=== PATIENT | male | born 1950 | race Caucasian/White ===

== ENCOUNTER 2018-05-27 09:08 | Inpatient (IN) | payer BC, OTHER ==
[2018-05-27] MEDS ORDERED: LORazepam 2 MG/ML SDV VIAL ONE ×3 (09:41→11:59)
[2018-05-27] MEDS ORDERED: ALBUTEROL SO4 2.5/IPRATROPIUM 0.5 INH SOL 3 ML VIAL.NEB. NEB ONE ×4 (10:00→10:53)
--- NOTE | 2018-05-27 10:00 | PDOC ---
Attending Attestation - Resident Resident Name: Senthil Arnett - HPI HPI: 05/27/18 11:27 Pt presents to the ED after found with altered mental status. Patient has a known history of substance abuse and was recently prescribed flexaril. Family believes that patient overdosed on the flexiril---state that they think he took 10 pills last night. Of note, patient has an extensive medical history including COPD, CABG in 2011, a fib on dig and coumadin. Patient was last seen normal during the day time yesterday. - Physicial Exam PE: 05/27/18 11:33 Agree with resident exam. Patient is altered, diaphoretic and flushed. Is moving all extremities with good strength but has no verbal responses and is not following commands. Abdomen is non distended and apparently non tender. + ecchymosis to the L knee but has full ROM. 05/27/18 11:36 - Critical Care Time Total Critical Care Time: 65 Critical Care Statement: The care of this patient involved high complexity decision making to prevent further life threatening deterioration of the patient 's condition and/or to evaluate & treat vital organ system(s) failure or risk of failure. - Medical Decision Making 05/27/18 11:37 Pt presents to ED complaining of altered mental status. Questionable flexiril OD. 1. altered mental status: may be secondary to medication OD. Patient has toxidrome consistent with flexiril OD. FS normoglycemic. Will check CT head and labs. 2. sepsis: patient is febrile with lactate of 3.8, elevated WBC count and infiltrate on CXR. Will give IV hydration and start broad spectrum antibiotics. Blood and and urine CX sent 3. Possible flexiril OD: no signs of Na channel blockade on ED. PAtient has urinary retention and flushing, consistent with TCA OD. Will treat agitation with benzodiazepines. will consult poisions and admit to ICU for continued management. 4. Wheezing and mild hypoxia: improved with nebs. Will also treat with solumedrol.
--- NOTE | 2018-05-27 10:01 | PDOC ---
History of Present Illness - General Stated Complaint: over dose Time Seen by Provider: 05/27/18 09:32 - History of Present Illness Initial Comments: 05/27/18 10:19 The patient is a 67 year old male with a history of afib, COPD, CHF, HTN, Prescription substance abuse who presents for evaluation of altered mental status. The patient is accompanied by his family who assist in providing the history. They note that the patient has a long history of prescription drug abuse and was recently prescribed metaxalone 1 day ago in addition to his Tramadol. They note that the patient took 10 tabs of flexeril throughout the night and today became acutely confused and altered prompting his presentation to the ED for further evaluation. ROS is unobtainable due to the patient's mental status. Past History - Past Medical History Allergies/Adverse Reactions: Allergies Allergy/AdvReac Type Severity Reaction Status Date / Time No Known Allergies Allergy Verified 05/27/18 09:32 Home Medications: Ambulatory Orders Aspirin [Ecotrin] 81 mg PO DAILY 05/27/18 Carvedilol [Coreg -] 12.5 mg PO BID 05/27/18 Digoxin [Lanoxin -] 0.125 mg PO DAILY 05/27/18 Duloxetine HCl [Cymbalta] 20 mg PO DAILY 05/27/18 Fenofibrate Nanocrystallized [Tricor] 48 mg PO HS 05/27/18 Finasteride 5 mg PO HS 05/27/18 Furosemide [Lasix] 40 mg PO DAILY 05/27/18 Icosapent Ethyl [Vascepa] 2 gm PO BID 05/27/18 Metaxalone [Metaxall] 800 mg PO TID 05/27/18 Potassium Chloride [Klor-Con M20] 20 meq PO HS 05/27/18 Rosuvastatin Calcium [Crestor] 20 mg PO HS 05/27/18 Tamsulosin HCl [Flomax] 0.4 mg PO BID 05/27/18 Warfarin Sodium [Coumadin] 5 mg PO HS 05/27/18 Cardiac Disorders: Yes (afib) COPD: Yes CHF: Yes HTN: Yes - Surgical History Cardiac Surgery: Yes (bipass mitral valve maze procedure) - Suicide/Smoking/Psychosocial Hx Smoking History: Current every day smoker Have you smoked in the past 12 months: Yes Number of Cigarettes Smoked Daily: 20 Information on smoking cessation initiated: No Hx Alcohol Use: No (sober 9 yrs) Drug/Substance Use Hx: Yes Substance Use Type: Alcohol, Prescribed Review of Systems - Review of Systems Able to Perform ROS?: No (Altered Mental Status) *Physical Exam - Vital Signs Last Vital Signs Temp Pulse Resp BP Pulse Ox 100.1 F H 54 L 20 106/77 94 L 05/27/18 09:19 05/27/18 09:19 05/27/18 09:19 05/27/18 09:19 05/27/18 09:19 - Physical Exam Comments: 05/27/18 10:30 General Appearance: Nourished. Altered. No Apparent Distress HEENT: EOMI, EMILY. No Pharyngeal Erythema, Tonsillar Exudate, Tonsillar Erythema Neck: No Cervical Lymphadenopathy Respiratory/Chest: Diffuse inspiratory and expiratory wheezing noted on exam. No Crackles, Rales, Rhonchi, Cardiovascular: Regular Rhythm, Regular Rate. No Murmur, Gallops, Rubs Gastrointestinal/Abdominal: Normal Bowel Sounds, Soft. No Guarding, Rebound, Tenderness Musculoskeletal: No CVA Tenderness Extremity: Normal Capillary Refill Integumentary: Normal Color, Dry, Warm Neurologic: Not Oriented, Alert, Altered. Moving all four extremities, Withdrawals to pain, Motor Strength 5/5. Heart Score/ECG Review #1 ECG reviewed & interpreted by me at: 10:32 General ECG Interpretation: No acute ischemic changes 05/27/18 10:32 Atrial Fibrillation with rapid ventricular response Left Bundle Branch Block HR 133 QTc 506 QRS 152 ED Treatment Course - LABORATORY CBC & Chemistry Diagram: 05/27/18 15:50 05/27/18 15:50 - RADIOLOGY Radiology Studies Ordered: Category Date Time Status HEAD CT WITHOUT CONTRAST [CT] Stat CT Scan 05/27/18 09:33 Ordered CHEST X-RAY PORTABLE* [RAD] Stat Radiology 05/27/18 09:58 Ordered Medical Decision Making - Critical Care Time Total Critical Care Time (minutes): 65 Critical Care Statement: The care of this patient involved high complexity decision making to prevent further life threatening deterioration of the patient 's condition and/or to evaluate & treat vital organ system(s) failure or risk of failure. - Medical Decision Making 05/27/18 10:33 The patient is a 67 year old male with a history of afib, COPD, CHF, HTN, Prescription substance abuse who presents for evaluation of altered mental status. Differential includes but is not limited to: Sepsis, Toxicological, Intracranial process, Infectious, Metabolic Derangement. Given the patient's history and physical exam, we will obtain a cbc, cmp, troponin, cpk, dig level, coags, ua, urine tox, acetominophen level, salicylate, alcohol level, blood cultures, urine cultures, head ct, ekg, chest plain film to evaluate further. We will continue to closely monitor and reassess while here in the ED. *DC/Admit/Observation/Transfer Diagnosis at time of Disposition: Altered mental status Qualifiers: Altered mental status type: unspecified Qualified Code(s): R41.82 - Altered mental status, unspecified - Discharge Dispostion Condition at time of disposition: Stable - Referrals - Patient Instructions - Post Discharge Activity
[2018-05-27 10:15] LABS: BASO % 0.8 % (0-2.0); HEMATOCRIT 34.1 % (35.4-49); HEMOGLOBIN 10.7 GM/dL (11.7-16.9); LYMPH % 12.4 % (8-40); MCH 27.3 pg (25.7-33.7); MCHC 31.4 g/dl (32.0-35.9); MEAN CELL VOLUME 86.9 fl (80-96); MEAN PLT VOLUME 8.4 fl (7.5-11.1); MONO % 10.3 % (3.8-10.2); NEUT % 75.5 % (42.8-82.8); PLATELET COUNT 344 K/MM3 (134-434); RBC 3.93 M/mm3 (4.00-5.60); RDW 20.5 % (11.9-15.9); WHITE BLOOD COUNT 13.7 K/mm3 (4.0-10.0)
[2018-05-27 10:28] LABS: INR 1.96 (0.83-1.09); PROTHROMBIN TIME (PATIENT) 23.3 SEC (9.7-13.0)
[2018-05-27 10:31] LABS: ACTIVATED PTT 26.6 SECONDS (25.2-36.5)
[2018-05-27 10:33] LABS: COCAINE, UR NEGATIVE ng/ml (CUTOFF=300); METHADONE, UR NEGATIVE ng/ml (CUTOFF=300); OPIATES, URI NEGATIVE ng/ml (CUTOFF=300); PHENCYCLIDINE,URINE NEGATIVE ng/ml (CUTOFF=25); URINE AMPHETAMINES NEGATIVE ng/ml (CUTOFF=500); URINE BARBITURATES NEGATIVE ng/ml (CUTOFF=200); URINE BENZODIAZEPINES NEGATIVE ng/ml (CUTOFF=200)
[2018-05-27 10:48] LABS: URINE APPEARANCE CLEAR; URINE BILIRUBIN NEGATIVE (<2.0 mg/dL); URINE COLOR YELLOW; URINE GLUCOSE (UA) NEGATIVE (NEGATIVE); URINE KETONE NEGATIVE (NEGATIVE); URINE LEUK ESTERASE NEGATIVE (NEGATIVE); URINE NITRITE NEGATIVE (NEGATIVE); URINE PROTEIN NEGATIVE (NEGATIVE); URINE UROBILINOGEN NEGATIVE mg/dL (0.2-1.0)
[2018-05-27] MEDS ORDERED: dilTIAZem HCL 50 MG/10 ML - 10 ML VIAL IVPUSH ONE ×2 (10:49→11:05)
[2018-05-27] MEDS ORDERED: methylPREDNISolone NA SUCC 125 MG/2 ML VIAL IVPUSH ONE (10:53)
[2018-05-27] MEDS ORDERED: ACETAMINOPHEN 1000 MG/100 ML VIAL (NON FORMULARY) IVPB ONE (10:53)
[2018-05-27] MEDS ORDERED: dilTIAZem HCL 125 MG/25 ML - 25 ML VIAL ONE (10:54)
[2018-05-27] MEDS ORDERED: SODIUM CHLORIDE 1,000 ML IV STA ×2 (11:28→13:59)
[2018-05-27] MEDS ORDERED: CLINDAMYCIN 600MG PREMIX IVPB 600 MG/50 ML BAG IVPB ONE ×2 (11:31→12:00)
[2018-05-27] MEDS ORDERED: AZITHROMYCIN IVPB 500 MG in DEXTROSE 5%-WATER - 250 ML IVPB ONE (11:31)
[2018-05-27] MEDS ORDERED: CEFTRIAXONE 1 GM in DEXTROSE 5%-WATER - 100 ML IVPB ONE (11:31)
[2018-05-27] MEDS ORDERED: ACETAMINOPHEN INJECTION 100 ML IVPB ONE (11:35)
[2018-05-27] MEDS ORDERED: methylPREDNISolone NA SUCC 125 MG/2 ML VIAL ONE (11:35)
[2018-05-27 11:40] LABS: ALBUMIN 3.6 g/dl (3.4-5.0); ALK PHOS 139 U/L (45-117); ANION GAP 9 MMOL/L (8-16); BILIRUBIN,TOTAL 0.5 mg/dL (0.2-1); BLOOD UREA NITROGEN 54 mg/dL (7-18); CALCIUM 9.2 mg/dL (8.5-10.1); CHLORIDE 100 mmol/L (98-107); CO2 26 mmol/L (21-32); GLUCOSE,RANDOM 75 mg/dL (74-106); POTASSIUM 5.7 mmol/L (3.5-5.1); SGOT/AST 19 U/L (15-37); SGPT/ALT 23 U/L (13-61); SODIUM 136 mmol/L (136-145); TOT PROT 8.1 g/dl (6.4-8.2)
[2018-05-27] MEDS ORDERED: AZITHROMYCIN IVPB 500 MG/250 ML BAG IVPB ONE (11:59)
[2018-05-27] MEDS ORDERED: CEFTRIAXONE 1 GM/50 ML BAG ONE (12:00)
[2018-05-27 12:19] LABS: VENOUS PC02 45.7 mmHg (38-52); VENOUS PH 7.38 (7.32-7.42)
[2018-05-27 12:20] LABS: VENOUS PO2 59.9 mmHg (28-48)
[2018-05-27 13:14] LABS: ANISOCYTOSIS 1+; MACROCYTOSIS 1+
[2018-05-27 13:15] LABS: PLATELET ESTIMATE NORMAL
[2018-05-27] MEDS ORDERED: SODIUM CHLORIDE 1,000 ML IV SCH (14:00)
[2018-05-27] MEDS ORDERED: ACETAMINOPHEN 1000 MG/100 ML VIAL (NON FORMULARY) IVPB PRN (14:27)
--- NOTE | 2018-05-27 14:33 | CONSULT ---
Consultation: REQUESTING PROVIDER: Dr. Meraz CONSULT REQUEST: We have been asked to medically evaluate this patient for ICU. HISTORY OF PRESENT ILLNESS: A 67 y.o. M w/ PMHx. of COPD, CHF, CABG (open heart- triple bypass in 2011), Mitral valve repair(2011) A.Fib. (on Digoxin and Coumadin), CHF and chronic substance abuse, presents to the ER with AMS 2/2 Metaxalone overdose. Pt. history obtained from medical records and medical staff as Pt. is currently obtunded. Pt. took 10 pills of recently prescribed Metaxalone 800mg in addition to ~4 Tramadol 100mg pills. Per the records Pt. was taking the pills throughout the night and not as a sequalae of suicidal ideation. Pt. became confused this morning, non-verbal and non-responsive to commands. As per Pt.s family Pt. overdosed on Metaxalone NOT Flexeril. Pt. has no known drug allergies. Pt. has family hx. of Breast CA. and EtOH abuse in mother and EtOH abuse in father. Pt. has been sober for 11 years now. Pt. has had 7 surgeries on his left knee, the last being in 2016. Pt. has received Pneumonia vaccine in 2014. REVIEW OF SYSTEMS: unable to assess ROS as Pt. is non responsive. PHYSICAL EXAMINATION Vital Signs - 24 hr 05/27/18 05/27/18 05/27/18 09:19 09:30 14:03 Temperature 100.1 F H Pulse Rate 54 L Pulse Rate [ 102 H Radial] Respiratory 20 20 Rate Blood Pressure 106/77 Blood Pressure 110/64 [Left Arm] O2 Sat by Pulse 94 L 100 95 Oximetry (%) GENERAL: Obtunded, responsice to painful stimuli. HEAD: Normal with no signs of gross trauma, diaphoretic. EYES: Pupils equal, round and sluggish to light, sclera anicteric, conjunctiva clear. No lid lag. EARS, NOSE, THROAT: Ears normal, nares patent, oropharynx clear without exudates. Dry mucous membranes. NECK: Supple without lymphadenopathy, JVD, or masses. LUNGS: Diffuse wheezes, and no crackles, decreased breath sounds on the lower left axilla. No accessory muscle use. HEART: Regular rate and rhythm, normal S1 and S2 ABDOMEN: Soft, nontender, not distended, normoactive bowel sounds, no guarding, no rebound MUSCULOSKELETAL: Skin abrasions on left knee, enlarged left knee, episodes of rigidity UPPER EXTREMITIES: 2+ right radial pulses, warm, well-perfused. No cyanosis. No clubbing. Cap refill <2 seconds. No peripheral edema. LOWER EXTREMITIES: 2+ dorsal pedal pulses, warm, well-perfused. No calf tenderness. 1+ edema. PSYCHIATRIC: Cooperative. Good eye contact. Appropriate mood and affect. SKIN: Warm, dry except for forehead which was diaphoretic Laboratory Results - last 24 hr 05/27/18 05/27/18 05/27/18 09:25 09:45 10:05 WBC 13.7 H RBC 3.93 L Hgb 10.7 L Hct 34.1 L MCV 86.9 MCH 27.3 MCHC 31.4 L RDW 20.5 H Plt Count 344 MPV 8.4 Absolute Neuts (auto) 10.3 H Neutrophils % 75.5 Lymphocytes % 12.4 Monocytes % 10.3 H Eosinophils % 1.0 Basophils % 0.8 Nucleated RBC % 0 Platelet Estimate Normal Platelet Comment Few large platelets Polychromasia 1+ Anisocytosis 1+ Macrocytosis 1+ Ehsan Cells 1+ PT with INR INR PTT (Actin FS) VBG pH POC VBG pCO2 POC VBG pO2 Mixed VBG HCO3 Sodium Potassium Chloride Carbon Dioxide Anion Gap BUN Creatinine Creat Clearance w eGFR POC Glucometer [id number] Random Glucose Lactic Acid 3.8 H* Calcium Total Bilirubin AST ALT Alkaline Phosphatase Creatine Kinase Troponin I Total Protein Albumin Urine Color Urine Appearance Urine pH Ur Specific [place] Urine Protein Urine Glucose (UA) Urine Ketones Urine Blood Urine Nitrite Urine Bilirubin Urine Urobilinogen Ur Leukocyte Esterase Digoxin Salicylates Opiates Screen Methadone Screen Acetaminophen Barbiturate Screen Phencyclidine Screen Ur Amphetamines Screen MDMA (Ecstasy) Screen Benzodiazepines Screen Cocaine Screen U Marijuana (THC) Screen Alcohol, Quantitative 05/27/18 05/27/18 05/27/18 10:05 10:05 10:05 WBC RBC Hgb Hct MCV MCH MCHC RDW Plt Count MPV Absolute Neuts (auto) Neutrophils % Lymphocytes % Monocytes % Eosinophils % Basophils % Nucleated RBC % Platelet Estimate Platelet Comment Polychromasia Anisocytosis Macrocytosis Ehsan Cells PT with INR 23.30 H INR 1.96 H PTT (Actin FS) 26.6 VBG pH POC VBG pCO2 POC VBG pO2 Mixed VBG HCO3 Sodium 136 Potassium 5.7 H Chloride 100 Carbon Dioxide 26 Anion Gap 9 BUN 54 H Creatinine 2.0 H Creat Clearance w eGFR 33.39 POC Glucometer Random Glucose 75 Lactic Acid Calcium 9.2 Total Bilirubin 0.5 AST 19 ALT 23 Alkaline Phosphatase 139 H Creatine Kinase 67 Troponin I 0.02 Total Protein 8.1 Albumin 3.6 Urine Color Urine Appearance Urine pH Ur Specific [place] Urine Protein Urine Glucose (UA) Urine Ketones Urine Blood Urine Nitrite Urine Bilirubin Urine Urobilinogen Ur Leukocyte Esterase Digoxin 0.61 L Salicylates 4.4 Opiates Screen Methadone Screen Acetaminophen 3.8 L Barbiturate Screen Phencyclidine Screen Ur Amphetamines Screen MDMA (Ecstasy) Screen Benzodiazepines Screen Cocaine Screen U Marijuana (THC) Screen Alcohol, Quantitative < 3.0 05/27/18 05/27/18 05/27/18 10:08 10:08 12:05 WBC RBC Hgb Hct MCV MCH MCHC RDW Plt Count MPV Absolute Neuts (auto) Neutrophils % Lymphocytes % Monocytes % Eosinophils % Basophils % Nucleated RBC % Platelet Estimate Platelet Comment Polychromasia Anisocytosis Macrocytosis Ehsan Cells PT with INR INR PTT (Actin FS) VBG pH 7.38 POC VBG pCO2 45.7 POC VBG pO2 59.9 H Mixed VBG HCO3 26.9 H Sodium Potassium Chloride Carbon Dioxide Anion Gap BUN Creatinine Creat Clearance w eGFR POC Glucometer Random Glucose Lactic Acid Calcium Total Bilirubin AST ALT Alkaline Phosphatase Creatine Kinase Troponin I Total Protein Albumin Urine Color Yellow Urine Appearance Clear Urine pH 5.0 Ur Specific [place] 1.020 Urine Protein Negative Urine Glucose (UA) Negative Urine Ketones Negative Urine Blood Negative Urine Nitrite Negative Urine Bilirubin Negative Urine Urobilinogen Negative Ur Leukocyte Esterase Negative Digoxin Salicylates Opiates Screen Negative Methadone Screen Negative Acetaminophen Barbiturate Screen Negative Phencyclidine Screen Negative Ur Amphetamines Screen Negative MDMA (Ecstasy) Screen Negative Benzodiazepines Screen Negative Cocaine Screen Negative U Marijuana (THC) Screen Negative Alcohol, Quantitative Active Medications Current Medications Chlorhexidine Gluconate (Hibiclens For Decolonization -) 1 applic TP HS SANDY Sodium Chloride (Normal Saline -) 1,000 mls @ 1,000 mls/hr IV ASDIR STA Stop: 05/27/18 14:58 Last Admin: 05/27/18 14:11 Dose: Not Given Sodium Chloride (Normal Saline -) 1,000 mls @ 100 mls/hr IV ASDIR SANDY Mupirocin (Bactroban Ointment (For Decolonization) -) 1 applic NS BID SANDY Stop: 06/01/18 21:59 ASSESSMENT/PLAN: A 67 y.o. M w/ PMHx. of COPD, CHF, CABG (open heart-triple bypass in 2011), Mitral valve repair(2011) A.Fib. (on Digoxin and Coumadin), CHF and chronic substance abuse, presents to the ER with AMS 2/2 Metaxalone overdose. #Pulmonology -Acute respiratory distress 2/2 Metaxalone OD and Pneumonia c/w 5L NC to keep O2 above 95% Duonebs received Solu-medrol 125mg c/w Solu-medrol 60mg Q8H CXR: shows LLL infiltrates start Zosyn and Doxycycline for broad spectrum coverage, Please avoid Quinolones and Azithromycin as Pt.s QTC is 506. f/u Bcx. and SCx. Initial WBC:13.7, Rpt WBC: 9.5 #Cardiology -HTN Hold anti-hypertensives as Pt.'s BP is normotensive, borderline hypotensive -A. Fib Hold Warfarin Consider starting Heparin gtt in the AM. Cardiology consult (Dr. Hirsch) appreciated. INR: 1.96 now EKG: A. Fib w/ RVR, LBBB, QTc: 506, QRS: 152 hold Digoxin as Pt. cannot tolerate PO intake now Digoxin level: 0.61 F/u Rpt. EKG, Trop and LA @ 6PM (05/27/18) -CAD c/w ASA 81mg Trop: 0.02 #Nephrology -GISELL vs. CKD BUN: 54 Cr. :2.0 c/w NS @ 100ml/hr f/u BMP in AM f/u Renal US f/u Urine Studies #Neurology -AMS 2/[address] Head: wnl #F/E/N -C/w NS @ 100ml/hr -Given 2L in ED -NPO -monitor electrolytes and correct as needed. Potassium currently 5.7 #DVT -SCDs -INR: 1.96 -Consider starting heparin gtt Dispo: We will continue to follow the patient. Thank you for this consultative opportunity. Visit type - Emergency Visit Emergency Visit: Yes ED Registration Date: 05/27/18 Care time: The patient presented to the Emergency Department on the above date and was hospitalized for further evaluation of their emergent condition. - New Patient This patient is new to me today: Yes Date on this admission: 05/28/18 - Critical Care Critical Care patient: Yes Total Critical Care Time (in minutes): 42 Critical Care Statement: The care of this patient involved high complexity decision making to prevent further life threatening deterioration of the patient 's condition and/or to evaluate & treat vital organ system(s) failure or risk of failure.
[2018-05-27] MEDS ORDERED: ALBUTEROL SO4 2.5/IPRATROPIUM 0.5 INH SOL 3 ML VIAL.NEB. NEB PRN (14:48)
[2018-05-27] MEDS ORDERED: LORazepam 2 MG/ML SDV VIAL IVPUSH STA (14:50)
--- NOTE | 2018-05-27 14:54 | CON.ID ---
Consult - History of Present Illness History of Present Illness: 67 y.o. with PMH of COPD, CABG, AFIB, CHF, and prescription drug abuse presented to ER with AMS/less responsiveness. Reported by family to possibly have taken multiple flexeril pills which he had been prescribed. In the ER pt was noted to have fever, leukocytosis, hypoxemic placed on O2, with lactic acid of 3.8. CXR reveals possible developing Lt lung infiltrate. Pt was agitated and given Ativan. Currently pt is diaphoretic, obtunded and not a source of history. - History Source History Provided By: Medical Record Limitations to Obtaining History: Unresponsive - Past Medical History Cardio/Vascular: Yes: AFIB, CAD Pulmonary: Yes: COPD - Past Surgical History Past Surgical History: Yes: CABG - Alcohol/Substance Use Hx Alcohol Use: No (sober 9 yrs) History of Substance Use: reports: Prescription - Smoking History Smoking history: Current every day smoker Have you smoked in the past 12 months: Yes Aproximately how many cigarettes per day: 20 Home Medications - Allergies Allergies/Adverse Reactions: Allergies Allergy/AdvReac Type Severity Reaction Status Date / Time No Known Allergies Allergy Verified 05/27/18 09:32 - Home Medications Home Medications: Ambulatory Orders Aspirin [Ecotrin] 81 mg PO DAILY 05/27/18 Carvedilol [Coreg -] 12.5 mg PO BID 05/27/18 Digoxin [Lanoxin -] 0.125 mg PO DAILY 05/27/18 Duloxetine HCl [Cymbalta] 20 mg PO DAILY 05/27/18 Fenofibrate Nanocrystallized [Tricor] 48 mg PO HS 05/27/18 Finasteride 5 mg PO HS 05/27/18 Furosemide [Lasix] 40 mg PO DAILY 05/27/18 Icosapent Ethyl [Vascepa] 2 gm PO BID 05/27/18 Metaxalone [Metaxall] 800 mg PO TID 05/27/18 Potassium Chloride [Klor-Con M20] 20 meq PO HS 05/27/18 Rosuvastatin Calcium [Crestor] 20 mg PO HS 05/27/18 Tamsulosin HCl [Flomax] 0.4 mg PO BID 05/27/18 Warfarin Sodium [Coumadin] 5 mg PO HS 05/27/18 Review of Systems Unable to obtain ROS, reason: pt obtunded Physical Exam Vital Signs: Vital Signs Temperature 100.1 F H 05/27/18 09:19 Pulse Rate 102 H 05/27/18 14:03 Respiratory Rate 20 05/27/18 14:03 Blood Pressure 110/64 05/27/18 14:03 O2 Sat by Pulse Oximetry (%) 95 05/27/18 14:03 Constitutional: Yes: No Distress, Diaphoresis Eyes: Yes: Conjunctiva Clear HENT: Yes: Atraumatic Neck: Yes: Supple Cardiovascular: Yes: Tachycardia Respiratory: Yes: Rhonchi, Wheezes Gastrointestinal: Yes: Normal Bowel Sounds, Soft Extremities: Yes: WNL, Other (Lt knee excoriation/scars, no erythema/warmth) Neurological: Yes: Lethargy Labs: CBC, BMP 05/27/18 10:05 05/27/18 10:05 Laboratory Tests 05/27/18 05/27/18 05/27/18 09:25 09:45 10:05 WBC 13.7 H RBC 3.93 L Hgb 10.7 L Hct 34.1 L MCV 86.9 MCH 27.3 MCHC 31.4 L RDW 20.5 H Plt Count 344 MPV 8.4 Absolute Neuts (auto) 10.3 H Neutrophils % 75.5 Lymphocytes % 12.4 Monocytes % 10.3 H Eosinophils % 1.0 Basophils % 0.8 Nucleated RBC % 0 Platelet Estimate Normal Platelet Comment Few large platelets Polychromasia 1+ Anisocytosis 1+ Macrocytosis 1+ Ehsan Cells 1+ PT with INR INR PTT (Actin FS) VBG pH POC VBG pCO2 POC VBG pO2 Mixed VBG HCO3 Sodium Potassium Chloride Carbon Dioxide Anion Gap BUN Creatinine Creat Clearance w eGFR POC Glucometer [id number] Random Glucose Lactic Acid 3.8 H* Calcium Total Bilirubin AST ALT Alkaline Phosphatase Creatine Kinase Troponin I Total Protein Albumin Urine Color Urine Appearance Urine pH Ur Specific [place] Urine Protein Urine Glucose (UA) Urine Ketones Urine Blood Urine Nitrite Urine Bilirubin Urine Urobilinogen Ur Leukocyte Esterase Digoxin Salicylates Opiates Screen Methadone Screen Acetaminophen Barbiturate Screen Phencyclidine Screen Ur Amphetamines Screen MDMA (Ecstasy) Screen Benzodiazepines Screen Cocaine Screen U Marijuana (THC) Screen Alcohol, Quantitative 05/27/18 05/27/18 05/27/18 10:05 10:05 10:05 WBC RBC Hgb Hct MCV MCH MCHC RDW Plt Count MPV Absolute Neuts (auto) Neutrophils % Lymphocytes % Monocytes % Eosinophils % Basophils % Nucleated RBC % Platelet Estimate Platelet Comment Polychromasia Anisocytosis Macrocytosis Ehsan Cells PT with INR 23.30 H INR 1.96 H PTT (Actin FS) 26.6 VBG pH POC VBG pCO2 POC VBG pO2 Mixed VBG HCO3 Sodium 136 Potassium 5.7 H Chloride 100 Carbon Dioxide 26 Anion Gap 9 BUN 54 H Creatinine 2.0 H Creat Clearance w eGFR 33.39 POC Glucometer Random Glucose 75 Lactic Acid Calcium 9.2 Total Bilirubin 0.5 AST 19 ALT 23 Alkaline Phosphatase 139 H Creatine Kinase 67 Troponin I 0.02 Total Protein 8.1 Albumin 3.6 Urine Color Urine Appearance Urine pH Ur Specific [place] Urine Protein Urine Glucose (UA) Urine Ketones Urine Blood Urine Nitrite Urine Bilirubin Urine Urobilinogen Ur Leukocyte Esterase Digoxin 0.61 L Salicylates 4.4 Opiates Screen Methadone Screen Acetaminophen 3.8 L Barbiturate Screen Phencyclidine Screen Ur Amphetamines Screen MDMA (Ecstasy) Screen Benzodiazepines Screen Cocaine Screen U Marijuana (THC) Screen Alcohol, Quantitative < 3.0 05/27/18 05/27/18 05/27/18 10:08 10:08 12:05 WBC RBC Hgb Hct MCV MCH MCHC RDW Plt Count MPV Absolute Neuts (auto) Neutrophils % Lymphocytes % Monocytes % Eosinophils % Basophils % Nucleated RBC % Platelet Estimate Platelet Comment Polychromasia Anisocytosis Macrocytosis [place] Cells PT with INR INR PTT (Actin FS) VBG pH 7.38 POC VBG pCO2 45.7 POC VBG pO2 59.9 H Mixed VBG HCO3 26.9 H Sodium Potassium Chloride Carbon Dioxide Anion Gap BUN Creatinine Creat Clearance w eGFR POC Glucometer Random Glucose Lactic Acid Calcium Total Bilirubin AST ALT Alkaline Phosphatase Creatine Kinase Troponin I Total Protein Albumin Urine Color Yellow Urine Appearance Clear Urine pH 5.0 Ur Specific [place] 1.020 Urine Protein Negative Urine Glucose (UA) Negative Urine Ketones Negative Urine Blood Negative Urine Nitrite Negative Urine Bilirubin Negative Urine Urobilinogen Negative Ur Leukocyte Esterase Negative Digoxin Salicylates Opiates Screen Negative Methadone Screen Negative Acetaminophen Barbiturate Screen Negative Phencyclidine Screen Negative Ur Amphetamines Screen Negative MDMA (Ecstasy) Screen Negative Benzodiazepines Screen Negative Cocaine Screen Negative U Marijuana (THC) Screen Negative Alcohol, Quantitative Imaging - Results X-ray: Report Reviewed Cat Scan: Report Reviewed Assessment/Plan 67 y.o. with PMH of COPD, CABG, AFIB, CHF, and prescription drug abuse presented to ER with AMS, less responsive with possible ingestion of multiple Flexeril pills Flexeril Overdose/Rigidity R/O malignant hyperthermia Possible Sepsis PNA / possible aspiration Acute Resp Distress Fever/Leukocytosis/elevated lactic acid level COPD CAD s/p CABG Atrial Fibrillation CHF -- will start Zosyn , doxycline. d/c Clindamycin/Azithromycin -- Blood cultures, repeat lactic acid -- poison control contacted by ICU -- close monitoring, rest of care per ICU cc: 45 min
[2018-05-27] MEDS ORDERED: SODIUM POLYSTYRENE SULFONATE 15 GM/60 ML BOTTLE PO ONE (14:55)
[2018-05-27 15:44] LABS: ARTERIAL BLD GAS O2 SATURATION 98.8 % (90-98.9); ARTERIAL BLOOD GAS BASE EXCESS -0.5 meq/l (-2-2); ARTERIAL BLOOD GAS PCO2 47.7 mmHg (35-45); ARTERIAL BLOOD GAS pH 7.34 (7.35-7.45)
[2018-05-27 15:56] LABS: MAGNESIUM 1.8 mg/dL (1.8-2.4); PHOSPHOROUS 5.6 mg/dL (2.5-4.9)
[2018-05-27 16:22] LABS: BASO % 0.2 % (0-2.0); EOS % 0.1 % (0-4.5); HEMATOCRIT 32.8 % (35.4-49); HEMOGLOBIN 10.5 GM/dL (11.7-16.9); LYMPH % 4.9 % (8-40); MCH 27.3 pg (25.7-33.7); MCHC 31.8 g/dl (32.0-35.9); MEAN CELL VOLUME 85.8 fl (80-96); MEAN PLT VOLUME 8.2 fl (7.5-11.1); MONO % 3.4 % (3.8-10.2); NEUT % 91.4 % (42.8-82.8); PLATELET COUNT 258 K/MM3 (134-434); RBC 3.83 M/mm3 (4.00-5.60); RDW 20.6 % (11.9-15.9); WHITE BLOOD COUNT 9.5 K/mm3 (4.0-10.0)
[2018-05-27 16:51] LABS: ALBUMIN 3.6 g/dl (3.4-5.0); ALK PHOS 127 U/L (45-117); ANION GAP 9 MMOL/L (8-16); BILIRUBIN,DIRECT 0.4 mg/dL (0.0-0.2); BILIRUBIN,TOTAL 0.7 mg/dL (0.2-1); BLOOD UREA NITROGEN 60 mg/dL (7-18); CALCIUM 8.8 mg/dL (8.5-10.1); CHLORIDE 100 mmol/L (98-107); CO2 25 mmol/L (21-32); CREATININE 2.1 mg/dL (0.55-1.3); GLUCOSE,RANDOM 98 mg/dL (74-106); MAGNESIUM 1.9 mg/dL (1.8-2.4); PHOSPHOROUS 5.5 mg/dL (2.5-4.9); POTASSIUM 4.9 mmol/L (3.5-5.1); SGOT/AST 28 U/L (15-37); SGPT/ALT 33 U/L (13-61); SODIUM 134 mmol/L (136-145); TOT PROT 7.8 g/dl (6.4-8.2)
[2018-05-27 16:53] LABS: ANISOCYTOSIS 2+; MACROCYTOSIS 1+; PLATELET ESTIMATE ADEQUATE
--- NOTE | 2018-05-27 17:08 | HP ---
CHIEF COMPLAINT: Altered mental status PCP: Dr. Sri Dias HISTORY OF PRESENT ILLNESS: 67 year old male with a PMH significant for A-fib (on Coumadin), HTN, COPD, Depression, former ETOH and current prescription opiod abuse, presented to the ED this AM after he was found by his family with altered mental status and unsteady gait. Patient was recently prescribed mataxalone by his PCP, and it is believed by his family that he took approximately 10 800 mg tabs starting at 2 PM yesterday. Patent was last observed to be verbally responsive at 2 AM by his , and when she saw him again at 5 AM, he appeared confused and could no longer respond verbally and had difficulty standing. Family reports that patient started using opiod pain medications since having 7 left knee surgeries starting in 2006, but has worsened over the past two years. He has a prescription for Tramadol 100 mg tabs from his PCP which the family believes he is taking too frequently. Family hopes patient will enter [facility] in-patient rehab for opiod detox following his hospitalization. Patient was hospitalized 2 weeks ago at [facility] after he fell, and was transfused with 3 U of blood. Patient had an extensive alcohol abuse history until he got sober in 2006 after doing an ETOH detox program. Patient is on Cymbalta 60 mg for depression, but does not see an outside psychiatrist or psychologist. He has had no psychiatric hospitalizations. ER course was notable for: -WBC 13.7 H -K 5.7 H -BUN/Cr 54H/2.0H -Wheezing, given Solu-Medrol and Duoneb -CXR possible LLL infiltrate, given Clindamycin and Azithromycin -CT of head negative, given 2 mg Ativan IVP x 2 for restlessness -Increasingly unresponsive, transferred to the ICU -Urine tox negative -ECG not indicative of acute ischemic event -Troponin #1 0.02, #2 0.05, #3 pending Recent Travel: No PAST MEDICAL HISTORY: A-fib (on Coumadin) HTN COPD Depression ETOH abuse Prescription opiod abuse PAST SURGICAL HISTORY: CABG/triple bypass/mitral valve repair (2011) Left knee reconstruction (7 separate procedures starting in 2006) Social History: Retired business services sales agent at a [employer], lives with his in [place], 3 adult children. Smokin PPD x 54 years Alcohol: Former; sober since 2006 Drugs: prescription opiates Family History: Alcoholism: mother, father Breast cancer: mother Allergies No Known Allergies Allergy (Verified 05/27/18 09:32) HOME MEDICATIONS: Home Medications Medication Instructions Recorded Aspirin [Ecotrin] 81 mg PO DAILY 05/27/18 Carvedilol [Coreg -] 12.5 mg PO BID 05/27/18 Digoxin [Lanoxin -] 0.125 mg PO DAILY 05/27/18 Duloxetine HCl [Cymbalta] 20 mg PO DAILY 05/27/18 Fenofibrate Nanocrystallized 48 mg PO HS 05/27/18 [Tricor] Finasteride 5 mg PO HS 05/27/18 Furosemide [Lasix] 40 mg PO DAILY 05/27/18 Icosapent Ethyl [Vascepa] 2 gm PO BID 05/27/18 Metaxalone [Metaxall] 800 mg PO TID 05/27/18 Potassium Chloride [Klor-Con M20] 20 meq PO HS 05/27/18 Rosuvastatin Calcium [Crestor] 20 mg PO HS 05/27/18 Tamsulosin HCl [Flomax] 0.4 mg PO BID 05/27/18 Warfarin Sodium [Coumadin] 5 mg PO HS 05/27/18 REVIEW OF SYSTEMS Provided by as patient is unable to respond CONSTITUTIONAL: +Generalized weakness Absent: fever, chills, diaphoresis, malaise, loss of appetite, weight change HEENT: Absent: rhinorrhea, nasal congestion, throat pain, throat swelling, difficulty swallowing, mouth swelling, ear pain, eye pain, visual changes CARDIOVASCULAR: Absent: chest pain, syncope, palpitations, irregular heart rate, lightheadedness , peripheral edema RESPIRATORY: Absent: cough, shortness of breath, dyspnea with exertion, orthopnea, wheezing, stridor, hemoptysis GASTROINTESTINAL: Absent: abdominal pain, abdominal distension, nausea, vomiting, diarrhea, constipation, melena, hematochezia GENITOURINARY: Absent: dysuria, frequency, urgency, hesitancy, hematuria, flank pain, genital pain MUSCULOSKELETAL: +Left knee pain and swelling, back pain Absent: myalgia, neck pain SKIN: Absent: rash, itching, pallor HEMATOLOGIC/IMMUNOLOGIC: Frequent infections from prior knee surgeries Absent: easy bleeding, easy bruising, lymphadenopathy ENDOCRINE: Absent: unexplained weight gain, unexplained weight loss, heat intolerance, cold intolerance NEUROLOGIC: Mental status changes, unsteady gait. Absent: headache, focal weakness or paresthesias, dizziness, seizure, bladder or bowel incontinence PSYCHIATRIC: Depression Absent: anxiety, suicidal or homicidal ideation, hallucinations. PHYSICAL EXAMINATION Vital Signs - 24 hr 05/27/18 05/27/18 05/27/18 09:19 09:30 10:30 Temperature 100.1 F H Pulse Rate 54 L Pulse Rate [ 126 H Apical] Pulse Rate [ Radial] Respiratory 20 21 H Rate Blood Pressure 106/77 Blood Pressure 102/65 [Left Arm] O2 Sat by Pulse 94 L 100 96 Oximetry (%) 05/27/18 05/27/18 05/27/18 11:17 11:58 12:15 Temperature Pulse Rate Pulse Rate [ 137 H 116 H 115 H Apical] Pulse Rate [ Radial] Respiratory 19 20 24 H Rate Blood Pressure Blood Pressure 99/58 L 103/61 103/61 [Left Arm] O2 Sat by Pulse 96 96 24 L Oximetry (%) 05/27/18 05/27/18 05/27/18 12:31 13:00 14:03 Temperature 100.0 F H Pulse Rate 107 H Pulse Rate [ 109 H Apical] Pulse Rate [ 102 H Radial] Respiratory 20 21 H 20 Rate Blood Pressure 116/70 Blood Pressure 114/60 110/64 [Left Arm] O2 Sat by Pulse 100 94 L 95 Oximetry (%) GENERAL: Obtunded, only responsive to strong tactile stimuli HEAD: Normal with no signs of trauma. EYES: Pupils equal, round and reactive to light, sclera anicteric, conjunctiva clear. EARS, NOSE, THROAT:dry mucous membranes, no lympadenopathy NECK: Without lymphadenopathy, JVD, or masses. LUNGS: Labored mouth breathing, expiratory wheeze HEART: Rapid rate and rhythm, normal S1 and S2 without murmur, rub or gallop. ABDOMEN: Soft, nontender, not distended, normoactive bowel sounds, no guarding, no rebound, no masses. No hepatomegaly or splenomegaly. MUSCULOSKELETAL: Enlarged bony deformity of left knee with multiple healed incision scars, intermittent flexing and extending of b/l legs UPPER EXTREMITIES: 2+ pulses, warm, well-perfused. No cyanosis. No clubbing. No peripheral edema. LOWER EXTREMITIES: Scattered raised, rough, patches to b/l LE, 2+ pulses, warm, well-perfused. No calf tenderness. No peripheral edema. NEUROLOGICAL: Rigid range of motion to upper and lower extremities. PSYCHIATRIC: Unable to respond SKIN: Erythema and telangiectasia to cheeks b/l. scattered scabbed lesions over lower extremities. Warm, dry, normal capillary refill. Laboratory Results - last 24 hr 05/27/18 05/27/18 05/27/18 09:25 09:45 10:05 WBC 13.7 H RBC 3.93 L Hgb 10.7 L Hct 34.1 L MCV 86.9 MCH 27.3 MCHC 31.4 L RDW 20.5 H Plt Count 344 MPV 8.4 Absolute Neuts (auto) 10.3 H Neutrophils % 75.5 Lymphocytes % 12.4 Monocytes % 10.3 H Eosinophils % 1.0 Basophils % 0.8 Nucleated RBC % 0 Platelet Estimate Normal Platelet Comment Few large platelets Polychromasia 1+ Anisocytosis 1+ Macrocytosis 1+ Kilmichael Cells 1+ PT with INR INR PTT (Actin FS) Puncture Site ABG pH ABG pCO2 at Pt Temp ABG pO2 at Pt Temp ABG HCO3 ABG O2 Sat (Measured) ABG O2 Content ABG Base Excess Isaac Test VBG pH POC VBG pCO2 POC VBG pO2 Mixed VBG HCO3 O2 Delivery Device Oxygen Flow Rate Sodium Potassium Chloride Carbon Dioxide Anion Gap BUN Creatinine Creat Clearance w eGFR POC Glucometer [id number] Random Glucose Lactic Acid 3.8 H* Calcium Phosphorus Magnesium Total Bilirubin AST ALT Alkaline Phosphatase Creatine Kinase Troponin I Total Protein Albumin Urine Color Urine Appearance Urine pH Ur Specific [place] Urine Protein Urine Glucose (UA) Urine Ketones Urine Blood Urine Nitrite Urine Bilirubin Urine Urobilinogen Ur Leukocyte Esterase Digoxin Salicylates Opiates Screen Methadone Screen Acetaminophen Barbiturate Screen Phencyclidine Screen Ur Amphetamines Screen MDMA (Ecstasy) Screen Benzodiazepines Screen Cocaine Screen U Marijuana (THC) Screen Alcohol, Quantitative 05/27/18 05/27/18 05/27/18 10:05 10:05 10:05 WBC RBC Hgb Hct MCV MCH MCHC RDW Plt Count MPV Absolute Neuts (auto) Neutrophils % Lymphocytes % Monocytes % Eosinophils % Basophils % Nucleated RBC % Platelet Estimate Platelet Comment Polychromasia Anisocytosis Macrocytosis Kil[place]ichael Cells PT with INR 23.30 H INR 1.96 H PTT (Actin FS) 26.6 Puncture Site ABG pH ABG pCO2 at Pt Temp ABG pO2 at Pt Temp ABG HCO3 ABG O2 Sat (Measured) ABG O2 Content ABG Base Excess Isaac Test VBG pH POC VBG pCO2 POC VBG pO2 Mixed VBG HCO3 O2 Delivery Device Oxygen Flow Rate Sodium 136 Potassium 5.7 H Chloride 100 Carbon Dioxide 26 Anion Gap 9 BUN 54 H Creatinine 2.0 H Creat Clearance w eGFR 33.39 POC Glucometer Random Glucose 75 Lactic Acid Calcium 9.2 Phosphorus 5.6 H Magnesium 1.8 Total Bilirubin 0.5 AST 19 ALT 23 Alkaline Phosphatase 139 H Creatine Kinase 67 Troponin I 0.02 Total Protein 8.1 Albumin 3.6 Urine Color Urine Appearance Urine pH Ur Specific [place] Urine Protein Urine Glucose (UA) Urine Ketones Urine Blood Urine Nitrite Urine Bilirubin Urine Urobilinogen Ur Leukocyte Esterase Digoxin 0.61 L Salicylates 4.4 Opiates Screen Methadone Screen Acetaminophen 3.8 L Barbiturate Screen Phencyclidine Screen Ur Amphetamines Screen MDMA (Ecstasy) Screen Benzodiazepines Screen Cocaine Screen U Marijuana (THC) Screen Alcohol, Quantitative < 3.0 05/27/18 05/27/18 05/27/18 10:08 10:08 12:05 WBC RBC Hgb Hct MCV MCH MCHC RDW Plt Count MPV Absolute Neuts (auto) Neutrophils % Lymphocytes % Monocytes % Eosinophils % Basophils % Nucleated RBC % Platelet Estimate Platelet Comment Polychromasia Anisocytosis Macrocytosis [place] Cells PT with INR INR PTT (Actin FS) Puncture Site ABG pH ABG pCO2 at Pt Temp ABG pO2 at Pt Temp ABG HCO3 ABG O2 Sat (Measured) ABG O2 Content ABG Base Excess Isaac Test VBG pH 7.38 POC VBG pCO2 45.7 POC VBG pO2 59.9 H Mixed VBG HCO3 26.9 H O2 Delivery Device Oxygen Flow Rate Sodium Potassium Chloride Carbon Dioxide Anion Gap BUN Creatinine Creat Clearance w eGFR POC Glucometer Random Glucose Lactic Acid Calcium Phosphorus Magnesium Total Bilirubin AST ALT Alkaline Phosphatase Creatine Kinase Troponin I Total Protein Albumin Urine Color Yellow Urine Appearance Clear Urine pH 5.0 Ur Specific [place] 1.020 Urine Protein Negative Urine Glucose (UA) Negative Urine Ketones Negative Urine Blood Negative Urine Nitrite Negative Urine Bilirubin Negative Urine Urobilinogen Negative Ur Leukocyte Esterase Negative Digoxin Salicylates Opiates Screen Negative Methadone Screen Negative Acetaminophen Barbiturate Screen Negative Phencyclidine Screen Negative Ur Amphetamines Screen Negative MDMA (Ecstasy) Screen Negative Benzodiazepines Screen Negative Cocaine Screen Negative U Marijuana (THC) Screen Negative Alcohol, Quantitative 05/27/18 05/27/18 15:40 15:50 WBC 9.5 RBC 3.83 L Hgb 10.5 L Hct 32.8 L MCV 85.8 MCH 27.3 MCHC 31.8 L RDW 20.6 H Plt Count 258 D MPV 8.2 Absolute Neuts (auto) 8.7 H Neutrophils % 91.4 H D Lymphocytes % 4.9 L D Monocytes % 3.4 L Eosinophils % 0.1 D Basophils % 0.2 Nucleated RBC % 0 Platelet Estimate Platelet Comment Polychromasia Anisocytosis Macrocytosis Ehsan Cells PT with INR INR PTT (Actin FS) Puncture Site No Result Required. ABG pH 7.34 L ABG pCO2 at Pt Temp 47.7 H ABG pO2 at Pt Temp 158.0 H* ABG HCO3 25.1 ABG O2 Sat (Measured) 98.8 ABG O2 Content 17.0 ABG Base Excess -0.5 Isaac Test No Result Required. VBG pH POC VBG pCO2 POC VBG pO2 Mixed VBG HCO3 O2 Delivery Device Nrm Oxygen Flow Rate 100 Sodium Potassium Chloride Carbon Dioxide Anion Gap BUN Creatinine Creat Clearance w eGFR POC Glucometer Random Glucose Lactic Acid Calcium Phosphorus Magnesium Total Bilirubin AST ALT Alkaline Phosphatase Creatine Kinase Troponin I Total Protein Albumin Urine Color Urine Appearance Urine pH Ur Specific [place] Urine Protein Urine Glucose (UA) Urine Ketones Urine Blood Urine Nitrite Urine Bilirubin Urine Urobilinogen Ur Leukocyte Esterase Digoxin Salicylates Opiates Screen Methadone Screen Acetaminophen Barbiturate Screen Phencyclidine Screen Ur Amphetamines Screen MDMA (Ecstasy) Screen Benzodiazepines Screen Cocaine Screen U Marijuana (THC) Screen Alcohol, Quantitative ECG A-fib with RVR, LBB Left Bundle Branch Block HR 133 QTc 506 QRS [address] without contrast: No CT evidence of acute intracranial pathology CXR: Large heart, sternal sutures and clips and some congestive changes and a questionable early infiltrate developing at the left base. ASSESSMENT/PLAN: 67 year old male with a PMH significant for A-fib (on Coumadin), HTN, COPD, Depression, former ETOH and current prescription opiod abuse admitted for suspected serotonin syndrome and opiod detox. Acute respiratory distress secondary to metaxalone overdose vs LLL infiltrate --Hx of COPD and current smoker --Started on Zosyn and docycycline --Solu-medrol 60 mg q8H --O2 via NC @5LPM, Duonebs --Blood and sputum cultures pending Metaxalone OD/Opiod Abuse --Possible serotonin syndrome --Consulted with poison control and recommended Ativan push for clonus symptoms , monitor temperature, and supportive care --Consult with Dr. Burden pending --Family interested in inpatient detox at [facility] --BUN/Cr 54/2.0 --> 60/2.1 --NS @100 cc/hr --Seen by cigar packer and picker, continue with current plan of care --Renal US and urine urea nitrogen ordered Hyperkalemia --K 5.7 --> 4.9 after given Kayexalate 30 m --Monitor BMP A-fib --Hold Coumadin and digoxin --On heparin drip, PTT goal 50-70 seconds --INR 1.96, monitor daily --Echocardiogram and serial ECGs HTN --Hold home carvedilol and lasix --monitor BP HLD --Hold home fenofibrate and Vascepa FEN -NS @ 100ml/hr -monitor electrolytes and correct as needed, K 5.7 -NPO DVT Prophylaxis -SCDs -heparin gtt Dispo: pt currently requires further inpatient care. FULL CODE Visit type - Emergency Visit Emergency Visit: Yes ED Registration Date: 05/27/18 Care time: The patient presented to the Emergency Department on the above date and was hospitalized for further evaluation of their emergent condition. - New Patient This patient is new to me today: Yes Date on this admission: 05/29/18 - Critical Care Critical Care patient: Yes Total Critical Care Time (in minutes): 120 Critical Care Statement: The care of this patient involved high complexity decision making to prevent further life threatening deterioration of the patient 's condition and/or to evaluate & treat vital organ system(s) failure or risk of failure.
[2018-05-27] MEDS ORDERED: PIPERACILLIN/TAZOBACTAM 3.375 GM VIAL IVPB ONE ×2 (17:15→23:47)
[2018-05-27] MEDS ORDERED: DEXTROSE 5%-WATER - 50 ML IVPB ONE ×2 (17:15→23:49)
[2018-05-27] MEDS: PIPERACILLIN/TAZOB 3.375 GM 3.375 GM in DEXTROSE 5%-WATER - 50 ML IVPB SCH ×2 (17:18→17:23)
[2018-05-27] MEDS: methylPREDNISolone NA SUCC 40 MG/1 ML VIAL IVPUSH SCH (17:19)
[2018-05-27] MEDS ORDERED: HEPARIN NA (PORCINE) 5,000 UNITS/ML 1ML VIAL IVPUSH PRN ×2 (20:32)
[2018-05-27] MEDS: ALBUTEROL SO4 2.5/IPRATROPIUM 0.5 INH SOL 3 ML VIAL.NEB. NEB SCH (20:33)
[2018-05-27] MEDS ORDERED: dilTIAZem HCL 50 MG/10 ML - 10 ML VIAL IVPUSH PRN (20:33)
[2018-05-27] MEDS: MUPIROCIN 2% TOPICAL OINTMENT FOR DECOLONIZATION NS SCH (22:00)
[2018-05-27] MEDS ORDERED: DOXYCYCLINE INJECTION 100 MG in DEXTROSE 5%-WATER - 100 ML IVPB SCH (22:00)
[2018-05-27] MEDS: CHLORHEXIDINE GLUCONATE 4% CLEANSER FOR DECOLONIZATION TP SCH (22:00)
--- NOTE | 2018-05-27 22:43 | CON.NEURO ---
Consult Consult Specialty:: [facility] Referred by:: Hospitalist GOL[facility] - History of Present Illness History of Present Illness: 67 years old man with PMH 1. A-fib (on Coumadin), 2. HTN, 3. COPD, 4 Depression, 5. former ETOH abuse 6. On Narcotics 7. Chronic pain syndrome Came in with ams Patient was noted with last seen normal at 2 Am 05/27 Patient was found with AMS at 5 Am No seizure Agitated confused ?? over dosage on Skelaxin Patient wa seen in the MICU Note dto have leg withdrawal symptoms ?? clonus No family member at [facility] bedside Patient received Ativa Was sating 97 on nasal cannula - History Source History Provided By: Medical Record Limitations to Obtaining History: Clinical Condition - Past Medical History Cardio/Vascular: Yes: AFIB, CAD Pulmonary: Yes: COPD - Past Surgical History Past Surgical History: Yes: CABG - Alcohol/Substance Use Hx Alcohol Use: No (sober 9 yrs) History of Substance Use: reports: Prescription - Smoking History Smoking history: Current every day smoker Have you smoked in the past 12 months: Yes Aproximately how many cigarettes per day: 20 Home Medications - Allergies Allergies/Adverse Reactions: Allergies Allergy/AdvReac Type Severity Reaction Status Date / Time No Known Allergies Allergy Verified 05/27/18 09:32 - Home Medications Home Medications: Ambulatory Orders Aspirin [Ecotrin] 81 mg PO DAILY 05/27/18 Carvedilol [Coreg -] 12.5 mg PO BID 05/27/18 Digoxin [Lanoxin -] 0.125 mg PO DAILY 05/27/18 Duloxetine HCl [Cymbalta] 20 mg PO DAILY 05/27/18 Fenofibrate Nanocrystallized [Tricor] 48 mg PO HS 05/27/18 Finasteride 5 mg PO HS 05/27/18 Furosemide [Lasix] 40 mg PO DAILY 05/27/18 Icosapent Ethyl [Vascepa] 2 gm PO BID 05/27/18 Metaxalone [Metaxall] 800 mg PO TID 05/27/18 Potassium Chloride [Klor-Con M20] 20 meq PO HS 05/27/18 Rosuvastatin Calcium [Crestor] 20 mg PO HS 05/27/18 Tamsulosin HCl [Flomax] 0.4 mg PO BID 05/27/18 Warfarin Sodium [Coumadin] 5 mg PO HS 05/27/18 Family Disease History - Family Disease History Family History: Unable to Obtain Physical Exam-Neuro Vital Signs: Vital Signs Temperature 98.0 F 05/27/18 18:05 Pulse Rate 96 H 05/27/18 18:05 Respiratory Rate 20 05/27/18 18:05 Blood Pressure 125/70 05/27/18 18:05 O2 Sat by Pulse Oximetry (%) 95 05/27/18 14:03 Constitutional: Yes: Well Nourished Neck: Yes: WNL Labs: CBC, BMP 05/27/18 15:50 05/27/18 15:50 INR, PTT INR 1.96 (0.83-1.09) H 05/27/18 10:05 - Neuro Exam Level Of Consciousness: Yes: Stuporous Eyes: Yes: PERRLA Speech: Other Dominant Hand: Right Cranial Nerves II-XII Intact: No Gag: Present DTR's: 1+ Left Bicep, 1+ Right Bicep, 1+ Left Achilles, 1+ Right Achilles Response to light touch: Abnormal Response to pain prick: Abnormal Response to temperature: Abnormal Motor Strength: 3/5: Right Leg (withdrew to pain with chest rub incraesed tone ) Imaging - Results Cat Scan: Image Reviewed Problem List - Problems (1) Altered mental status Assessment/Plan: 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 Neuro check s 2, Seizure precautions 3. Ck_MM level 4. Suggest Naracn regardless of cory Tox screen 5. EEG 6. Repeat Ct head in the am 7. IV fluid Code(s): R41.82 - ALTERED MENTAL STATUS, UNSPECIFIED Qualifiers: Altered mental status type: unspecified Qualified Code(s): R41.82 - Altered mental status, unspecified
[2018-05-27] MEDS: HEPARIN - 25,000 UNIT in SODIUM CHLORIDE 495 ML IV SCH (23:30)
[2018-05-28] MEDS: PIPERACILLIN/TAZOB 3.375 GM 3.375 GM in DEXTROSE 5%-WATER - 50 ML IVPB SCH ×3 (02:45→17:43)
[2018-05-28] MEDS: methylPREDNISolone NA SUCC 40 MG/1 ML VIAL IVPUSH SCH ×3 (02:45→17:42)
[2018-05-28 06:33] LABS: BASO % 0.2 % (0-2.0); HEMATOCRIT 34.3 % (35.4-49); HEMOGLOBIN 10.8 GM/dL (11.7-16.9); LYMPH % 5.6 % (8-40); MCH 26.9 pg (25.7-33.7); MCHC 31.7 g/dl (32.0-35.9); MEAN CELL VOLUME 84.9 fl (80-96); MEAN PLT VOLUME 8.1 fl (7.5-11.1); MONO % 3.2 % (3.8-10.2); PLATELET COUNT 229 K/MM3 (134-434); RBC 4.03 M/mm3 (4.00-5.60); RDW 20.4 % (11.9-15.9); WHITE BLOOD COUNT 7.2 K/mm3 (4.0-10.0)
[2018-05-28 06:46] LABS: INR 2.61 (0.83-1.09); PROTHROMBIN TIME (PATIENT) 31.1 SEC (9.7-13.0)
[2018-05-28 06:48] LABS: ACTIVATED PTT 32.2 SECONDS (25.2-36.5)
[2018-05-28] MEDS ORDERED: METOPROLOL TARTRATE 5 MG/5 ML VIAL IVPUSH ONE (06:50)
[2018-05-28 06:51] LABS: ALBUMIN 3.3 g/dl (3.4-5.0); ALK PHOS 119 U/L (45-117); ANION GAP 9 MMOL/L (8-16); BILIRUBIN,TOTAL 0.7 mg/dL (0.2-1); BLOOD UREA NITROGEN 48 mg/dL (7-18); CHLORIDE 106 mmol/L (98-107); CO2 26 mmol/L (21-32); CREATININE 1.3 mg/dL (0.55-1.3); GLUCOSE,RANDOM 123 mg/dL (74-106); MAGNESIUM 2.3 mg/dL (1.8-2.4); PHOSPHOROUS 4.4 mg/dL (2.5-4.9); SGOT/AST 35 U/L (15-37); SGPT/ALT 40 U/L (13-61); SODIUM 141 mmol/L (136-145); TOT PROT 7.6 g/dl (6.4-8.2)
[2018-05-28] MEDS ORDERED: PT OWN MED DRAWER 7, Y5N ONE ×3 (07:28→22:04)
[2018-05-28] MEDS ORDERED: PIPERACILLIN/TAZOBACTAM 3.375 GM VIAL IVPB ONE ×2 (07:29→16:56)
[2018-05-28] MEDS ORDERED: DEXTROSE 5%-WATER - 50 ML IVPB ONE ×2 (07:29→16:56)
[2018-05-28] MEDS ORDERED: dilTIAZem HCL 50 MG/10 ML - 10 ML VIAL ONE (07:59)
[2018-05-28] MEDS: dilTIAZem HCL 25 MG/5 ML - 5 ML VIAL IVPUSH PRN ×2 (08:03→14:07)
[2018-05-28] MEDS: ALBUTEROL SO4 2.5/IPRATROPIUM 0.5 INH SOL 3 ML VIAL.NEB. NEB SCH ×4 (08:48→21:35)
[2018-05-28] MEDS: DOXYCYCLINE INJECTION 100 MG in DEXTROSE 5%-WATER - 100 ML IVPB SCH ×3 (09:55→22:29)
--- NOTE | 2018-05-28 10:07 | CONSULT ---
Consultation: CARDIOLOGY CONSULT CONSULT REQUEST: We have been asked to medically evaluate this patient for ( Atrial fibrillation). HISTORY OF PRESENT ILLNESS: History obtained from the chart. Pt is unable to provide history due to drowsiness. Patient is a 67 year old male was brought in to the ED by family members after he was found to have altered mental status after Metaloxone overdose. As per the chart, he was prescribed Metaxalone 800 mg with Tramadol 100mg pills. He took those pills overnight, was found to be confused, non verbal and unresponsive to commands. On arrival, he had a temp of 100.1 F, tachycardic to 110 bpm, leukocytosis of 13 , hyperkalemia 5.7, lactic acid 3.8, creatinine of 2. Admitted in ICU for further evaluation and treatment. PAST MEDICAL HISTORY: COPD, CHF, CABG (open heart-triple bypass in 2011), Mitral valve repair(2011) A.Fib. (on Digoxin and Coumadin), CHF and chronic substance abuse ALLERGIES: NKDA PAST SURGICAL HISTORY: 7 surgeries on his left knee, the last being in 2015. SOCIAL HISTORY: Smoking: Unknown Alcohol: sober for 11 years Drugs: Unknown FAMILY HISTORY: h/o of breast cancer. Both parents-alcohol abuse OCCUPATION: Unknown. TRAVEL: Unknown. REVIEW OF SYSTEMS: Unobtainable Vital Signs - 24 hr 05/27/18 05/27/18 05/27/18 10:30 11:17 11:58 Temperature Pulse Rate Pulse Rate [ 126 H 137 H 116 H Apical] Pulse Rate [ Radial] Respiratory 21 H 19 20 Rate Blood Pressure Blood Pressure 102/65 99/58 L 103/61 [Left Arm] O2 Sat by Pulse 96 96 96 Oximetry (%) 05/27/18 05/27/18 05/27/18 12:15 12:31 13:00 Temperature Pulse Rate Pulse Rate [ 115 H 109 H Apical] Pulse Rate [ Radial] Respiratory 24 H 21 H Rate Blood Pressure Blood Pressure 103/61 114/60 [Left Arm] O2 Sat by Pulse 24 L 100 94 L Oximetry (%) 05/27/18 05/27/18 05/27/18 14:03 14:45 16:00 Temperature 100.0 F H Pulse Rate 107 H 93 H Pulse Rate [ Apical] Pulse Rate [ 102 H Radial] Respiratory 20 20 17 Rate Blood Pressure 116/70 150/76 Blood Pressure 110/64 [Left Arm] O2 Sat by Pulse 95 Oximetry (%) 05/27/18 05/27/18 05/27/18 18:05 20:00 21:00 Temperature 98.0 F Pulse Rate 96 H 93 H Pulse Rate [ Apical] Pulse Rate [ Radial] Respiratory 20 17 19 Rate Blood Pressure 125/70 137/77 Blood Pressure [Left Arm] O2 Sat by Pulse 94 L Oximetry (%) 05/27/18 05/28/18 05/28/18 22:00 00:00 02:00 Temperature 98.2 F 98.7 F Pulse Rate 95 H 101 H 109 H Pulse Rate [ Apical] Pulse Rate [ Radial] Respiratory 19 18 20 Rate Blood Pressure 137/71 148/88 151/89 Blood Pressure [Left Arm] O2 Sat by Pulse Oximetry (%) 05/28/18 05/28/18 05/28/18 04:00 06:00 08:00 Temperature 97.8 F Pulse Rate 110 H 108 H 98 H Pulse Rate [ Apical] Pulse Rate [ Radial] Respiratory 19 19 19 Rate Blood Pressure 131/81 148/77 154/81 Blood Pressure [Left Arm] O2 Sat by Pulse Oximetry (%) 05/28/18 05/28/18 08:53 08:56 Temperature Pulse Rate 116 H Pulse Rate [ Apical] Pulse Rate [ Radial] Respiratory 20 Rate Blood Pressure 154/81 Blood Pressure [Left Arm] O2 Sat by Pulse 92 L Oximetry (%) GENERAL: Middle aged male, lying in bed, lethargic, arousable to painful stimuli , in no acute distress. HEAD: Normal with no signs of trauma. EYES: No pallor or icterus. EARS, NOSE, THROAT: Ears normal. Dry mucous membranes. NECK: Supple. LUNGS: B/L Breath sounds equal, clear to auscultation bilaterally. No wheezes, and no crackles. No accessory muscle use. HEART: Irregularly irregular rate, tachycardic, normal S1 and S2 without murmur. ABDOMEN: Soft, nontender, no organomegaly. MUSCULOSKELETAL: Rigidity of extremities. UPPER EXTREMITIES: 2+ pulses, warm, well-perfused. No cyanosis. No clubbing. Cap refill <2 seconds. No peripheral edema. LOWER EXTREMITIES: 2+ pulses, warm, well-perfused. No calf tenderness. No peripheral edema. chronic venous stasis b/l LE NEUROLOGICAL: No facial droop, lethargic. PSYCHIATRIC:uncooperative, poor eye contact. SKIN: Warm, dry, normal turgor, no rashes or lesions noted. Laboratory Results - last 24 hr 05/27/18 05/27/18 05/27/18 09:25 09:45 10:05 WBC 13.7 H RBC 3.93 L Hgb 10.7 L Hct 34.1 L MCV 86.9 MCH 27.3 MCHC 31.4 L RDW 20.5 H Plt Count 344 MPV 8.4 Absolute Neuts (auto) 10.3 H Neutrophils % 75.5 Neutrophils % (Manual) Band Neutrophils % Lymphocytes % 12.4 Lymphocytes % (Manual) Monocytes % 10.3 H Monocytes % (Manual) Eosinophils % 1.0 Basophils % 0.8 Nucleated RBC % 0 Hypochromia Platelet Estimate Normal Platelet Comment Few large platelets Polychromasia 1+ Anisocytosis 1+ Microcytosis Macrocytosis 1+ [place] Cells 1+ PT with INR INR PTT (Actin FS) Puncture Site ABG pH ABG pCO2 at Pt Temp ABG pO2 at Pt Temp ABG HCO3 ABG O2 Sat (Measured) ABG O2 Content ABG Base Excess Isaac Test VBG pH POC VBG pCO2 POC VBG pO2 Mixed VBG HCO3 O2 Delivery Device Oxygen Flow Rate Sodium Potassium Chloride Carbon Dioxide Anion Gap BUN Creatinine Creat Clearance w eGFR POC Glucometer [id number] Random Glucose Lactic Acid 3.8 H* Calcium Phosphorus Magnesium Total Bilirubin Direct Bilirubin GGT AST ALT Alkaline Phosphatase Ammonia Creatine Kinase Troponin I Total Protein Albumin Urine Color Urine Appearance Urine pH Ur Specific Mcdonald Urine Protein Urine Glucose (UA) Urine Ketones Urine Blood Urine Nitrite Urine Bilirubin Urine Urobilinogen Ur Leukocyte Esterase Ur Random Sodium Ur Random Urea Nitrogn Urine Creatinine Digoxin Salicylates Opiates Screen Methadone Screen Acetaminophen Barbiturate Screen Phencyclidine Screen Ur Amphetamines Screen MDMA (Ecstasy) Screen Benzodiazepines Screen Cocaine Screen U Marijuana (THC) Screen Alcohol, Quantitative 05/27/18 05/27/18 05/27/18 10:05 10:05 10:05 WBC RBC Hgb Hct MCV MCH MCHC RDW Plt Count MPV Absolute Neuts (auto) Neutrophils % Neutrophils % (Manual) Band Neutrophils % Lymphocytes % Lymphocytes % (Manual) Monocytes % Monocytes % (Manual) Eosinophils % Basophils % Nucleated RBC % Hypochromia Platelet Estimate Platelet Comment Polychromasia Anisocytosis Microcytosis Macrocytosis Ehsan Cells PT with INR 23.30 H INR 1.96 H PTT (Actin FS) 26.6 Puncture Site ABG pH ABG pCO2 at Pt Temp ABG pO2 at Pt Temp ABG HCO3 ABG O2 Sat (Measured) ABG O2 Content ABG Base Excess Isaac Test VBG pH POC VBG pCO2 POC VBG pO2 Mixed VBG HCO3 O2 Delivery Device Oxygen Flow Rate Sodium 136 Potassium 5.7 H Chloride 100 Carbon Dioxide 26 Anion Gap 9 BUN 54 H Creatinine 2.0 H Creat Clearance w eGFR 33.39 POC Glucometer Random Glucose 75 Lactic Acid Calcium 9.2 Phosphorus 5.6 H Magnesium 1.8 Total Bilirubin 0.5 Direct Bilirubin GGT AST 19 ALT 23 Alkaline Phosphatase 139 H Ammonia Creatine Kinase 67 Troponin I 0.02 Total Protein 8.1 Albumin 3.6 Urine Color Urine Appearance Urine pH Ur Specific Mcdonald Urine Protein Urine Glucose (UA) Urine Ketones Urine Blood Urine Nitrite Urine Bilirubin Urine Urobilinogen Ur Leukocyte Esterase Ur Random Sodium Ur Random Urea Nitrogn Urine Creatinine Digoxin 0.61 L Salicylates 4.4 Opiates Screen Methadone Screen Acetaminophen 3.8 L Barbiturate Screen Phencyclidine Screen Ur Amphetamines Screen MDMA (Ecstasy) Screen Benzodiazepines Screen Cocaine Screen U Marijuana (THC) Screen Alcohol, Quantitative < 3.0 05/27/18 05/27/18 05/27/18 10:08 10:08 12:05 WBC RBC Hgb Hct MCV MCH MCHC RDW Plt Count MPV Absolute Neuts (auto) Neutrophils % Neutrophils % (Manual) Band Neutrophils % Lymphocytes % Lymphocytes % (Manual) Monocytes % Monocytes % (Manual) Eosinophils % Basophils % Nucleated RBC % Hypochromia Platelet Estimate Platelet Comment Polychromasia Anisocytosis Microcytosis Macrocytosis Ehsan Cells PT with INR INR PTT (Actin FS) Puncture Site ABG pH ABG pCO2 at Pt Temp ABG pO2 at Pt Temp ABG HCO3 ABG O2 Sat (Measured) ABG O2 Content ABG Base Excess Isaac Test VBG pH 7.38 POC VBG pCO2 45.7 POC VBG pO2 59.9 H Mixed VBG HCO3 26.9 H O2 Delivery Device Oxygen Flow Rate Sodium Potassium Chloride Carbon Dioxide Anion Gap BUN Creatinine Creat Clearance w eGFR POC Glucometer Random Glucose Lactic Acid Calcium Phosphorus Magnesium Total Bilirubin Direct Bilirubin GGT AST ALT Alkaline Phosphatase Ammonia Creatine Kinase Troponin I Total Protein Albumin Urine Color Yellow Urine Appearance Clear Urine pH 5.0 Ur Specific Mcdonald 1.020 Urine Protein Negative Urine Glucose (UA) Negative Urine Ketones Negative Urine Blood Negative Urine Nitrite Negative Urine Bilirubin Negative Urine Urobilinogen Negative Ur Leukocyte Esterase Negative Ur Random Sodium Ur Random Urea Nitrogn Urine Creatinine Digoxin Salicylates Opiates Screen Negative Methadone Screen Negative Acetaminophen Barbiturate Screen Negative Phencyclidine Screen Negative Ur Amphetamines Screen Negative MDMA (Ecstasy) Screen Negative Benzodiazepines Screen Negative Cocaine Screen Negative U Marijuana (THC) Screen Negative Alcohol, Quantitative 05/27/18 05/27/18 05/27/18 15:40 15:50 15:50 WBC 9.5 RBC 3.83 L Hgb 10.5 L Hct 32.8 L MCV 85.8 MCH 27.3 MCHC 31.8 L RDW 20.6 H Plt Count 258 D MPV 8.2 Absolute Neuts (auto) 8.7 H Neutrophils % 91.4 H D Neutrophils % (Manual) 86.0 H Band Neutrophils % 2.0 Lymphocytes % 4.9 L D Lymphocytes % (Manual) 6.0 L Monocytes % 3.4 L Monocytes % (Manual) 6 Eosinophils % 0.1 D Basophils % 0.2 Nucleated RBC % 0 Hypochromia 1+ Platelet Estimate Adequate Platelet Comment Polychromasia 1+ Anisocytosis 2+ Microcytosis 1+ Macrocytosis 1+ Ehsan Cells PT with INR INR PTT (Actin FS) Puncture Site No Result Required. ABG pH 7.34 L ABG pCO2 at Pt Temp 47.7 H ABG pO2 at Pt Temp 158.0 H* ABG HCO3 25.1 ABG O2 Sat (Measured) 98.8 ABG O2 Content 17.0 ABG Base Excess -0.5 Isaac Test No Result Required. VBG pH POC VBG pCO2 POC VBG pO2 Mixed VBG HCO3 O2 Delivery Device Nrm Oxygen Flow Rate 100 Sodium 134 L Potassium 4.9 Chloride 100 Carbon Dioxide 25 Anion Gap 9 BUN 60 H Creatinine 2.1 H Creat Clearance w eGFR 31.56 POC Glucometer Random Glucose 98 Lactic Acid Calcium 8.8 Phosphorus 5.5 H Magnesium 1.9 Total Bilirubin 0.7 Direct Bilirubin 0.4 H GGT AST 28 ALT 33 Alkaline Phosphatase 127 H Ammonia Creatine Kinase Troponin I Total Protein 7.8 Albumin 3.6 Urine Color Urine Appearance Urine pH Ur Specific Mcdonald Urine Protein Urine Glucose (UA) Urine Ketones Urine Blood Urine Nitrite Urine Bilirubin Urine Urobilinogen Ur Leukocyte Esterase Ur Random Sodium Ur Random Urea Nitrogn Urine Creatinine Digoxin Salicylates Opiates Screen Methadone Screen Acetaminophen Barbiturate Screen Phencyclidine Screen Ur Amphetamines Screen MDMA (Ecstasy) Screen Benzodiazepines Screen Cocaine Screen U Marijuana (THC) Screen Alcohol, Quantitative 05/27/18 05/27/18 05/27/18 15:50 15:50 15:50 WBC RBC Hgb Hct MCV MCH MCHC RDW Plt Count MPV Absolute Neuts (auto) Neutrophils % Neutrophils % (Manual) Band Neutrophils % Lymphocytes % Lymphocytes % (Manual) Monocytes % Monocytes % (Manual) Eosinophils % Basophils % Nucleated RBC % Hypochromia Platelet Estimate Platelet Comment Polychromasia Anisocytosis Microcytosis Macrocytosis [place] Cells PT with INR INR PTT (Actin FS) Puncture Site ABG pH ABG pCO2 at Pt Temp ABG pO2 at Pt Temp ABG HCO3 ABG O2 Sat (Measured) ABG O2 Content ABG Base Excess Isaac Test VBG pH POC VBG pCO2 POC VBG pO2 Mixed VBG HCO3 O2 Delivery Device Oxygen Flow Rate Sodium Potassium Chloride Carbon Dioxide Anion Gap BUN Creatinine Creat Clearance w eGFR POC Glucometer Random Glucose Lactic Acid 1.0 Calcium Phosphorus Magnesium Total Bilirubin Direct Bilirubin GGT AST ALT Alkaline Phosphatase Ammonia Creatine Kinase 83 Troponin I 0.05 Total Protein Albumin Urine Color Urine Appearance Urine pH Ur Specific Mcdonald Urine Protein Urine Glucose (UA) Urine Ketones Urine Blood Urine Nitrite Urine Bilirubin Urine Urobilinogen Ur Leukocyte Esterase Ur Random Sodium Ur Random Urea Nitrogn Urine Creatinine Digoxin Salicylates Opiates Screen Methadone Screen Acetaminophen Barbiturate Screen Phencyclidine Screen Ur Amphetamines Screen MDMA (Ecstasy) Screen Benzodiazepines Screen Cocaine Screen U Marijuana (THC) Screen Alcohol, Quantitative 05/27/18 05/27/18 05/28/18 16:30 16:30 01:00 WBC RBC Hgb Hct MCV MCH MCHC RDW Plt Count MPV Absolute Neuts (auto) Neutrophils % Neutrophils % (Manual) Band Neutrophils % Lymphocytes % Lymphocytes % (Manual) Monocytes % Monocytes % (Manual) Eosinophils % Basophils % Nucleated RBC % Hypochromia Platelet Estimate Platelet Comment Polychromasia Anisocytosis Microcytosis Macrocytosis [place] Cells PT with INR INR PTT (Actin FS) Puncture Site ABG pH ABG pCO2 at Pt Temp ABG pO2 at Pt Temp ABG HCO3 ABG O2 Sat (Measured) ABG O2 Content ABG Base Excess Isaac Test VBG pH POC VBG pCO2 POC VBG pO2 Mixed VBG HCO3 O2 Delivery Device Oxygen Flow Rate Sodium Potassium Chloride Carbon Dioxide Anion Gap BUN Creatinine Creat Clearance w eGFR POC Glucometer Random Glucose Lactic Acid Calcium Phosphorus Magnesium Total Bilirubin Direct Bilirubin GGT AST ALT Alkaline Phosphatase Ammonia 55.66 H Creatine Kinase Troponin I Total Protein Albumin Urine Color Urine Appearance Urine pH Ur Specific Mcdonald Urine Protein Urine Glucose (UA) Urine Ketones Urine Blood Urine Nitrite Urine Bilirubin Urine Urobilinogen Ur Leukocyte Esterase Ur Random Sodium < 18 L Ur Random Urea Nitrogn 561 Urine Creatinine 110.0 H Digoxin Salicylates Opiates Screen Methadone Screen Acetaminophen Barbiturate Screen Phencyclidine Screen Ur Amphetamines Screen MDMA (Ecstasy) Screen Benzodiazepines Screen Cocaine Screen U Marijuana (THC) Screen Alcohol, Quantitative 05/28/18 05/28/18 05/28/18 01:00 02:30 05:30 WBC 7.2 RBC 4.03 Hgb 10.8 L Hct 34.3 L MCV 84.9 MCH 26.9 MCHC 31.7 L RDW 20.4 H Plt Count 229 MPV 8.1 Absolute Neuts (auto) 6.5 Neutrophils % 91.0 H Neutrophils % (Manual) Band Neutrophils % Lymphocytes % 5.6 L Lymphocytes % (Manual) Monocytes % 3.2 L Monocytes % (Manual) Eosinophils % 0.0 D Basophils % 0.2 Nucleated RBC % 0 Hypochromia Platelet Estimate Platelet Comment Polychromasia Anisocytosis Microcytosis Macrocytosis Ehsan Cells PT with INR INR PTT (Actin FS) Puncture Site ABG pH ABG pCO2 at Pt Temp ABG pO2 at Pt Temp ABG HCO3 ABG O2 Sat (Measured) ABG O2 Content ABG Base Excess Isaac Test VBG pH POC VBG pCO2 POC VBG pO2 Mixed VBG HCO3 O2 Delivery Device Oxygen Flow Rate Sodium Potassium Chloride Carbon Dioxide Anion Gap BUN Creatinine Creat Clearance w eGFR POC Glucometer Random Glucose Lactic Acid Calcium Phosphorus Magnesium Total Bilirubin Direct Bilirubin GGT 75 AST ALT Alkaline Phosphatase Ammonia Creatine Kinase Troponin I 0.08 H Cancelled Total Protein Albumin Urine Color Urine Appearance Urine pH Ur Specific Mcdonald Urine Protein Urine Glucose (UA) Urine Ketones Urine Blood Urine Nitrite Urine Bilirubin Urine Urobilinogen Ur Leukocyte Esterase Ur Random Sodium Ur Random Urea Nitrogn Urine Creatinine Digoxin Salicylates Opiates Screen Methadone Screen Acetaminophen Barbiturate Screen Phencyclidine Screen Ur Amphetamines Screen MDMA (Ecstasy) Screen Benzodiazepines Screen Cocaine Screen U Marijuana (THC) Screen Alcohol, Quantitative 05/28/18 05/28/18 05:30 05:30 WBC RBC Hgb Hct MCV MCH MCHC RDW Plt Count MPV Absolute Neuts (auto) Neutrophils % Neutrophils % (Manual) Band Neutrophils % Lymphocytes % Lymphocytes % (Manual) Monocytes % Monocytes % (Manual) Eosinophils % Basophils % Nucleated RBC % Hypochromia Platelet Estimate Platelet Comment Polychromasia Anisocytosis Microcytosis Macrocytosis [place] Cells PT with INR 31.10 H INR 2.61 H PTT (Actin FS) 32.2 Puncture Site ABG pH ABG pCO2 at Pt Temp ABG pO2 at Pt Temp ABG HCO3 ABG O2 Sat (Measured) ABG O2 Content ABG Base Excess Isaac Test VBG pH POC VBG pCO2 POC VBG pO2 Mixed VBG HCO3 O2 Delivery Device Oxygen Flow Rate Sodium 141 Potassium 4.0 Chloride 106 Carbon Dioxide 26 Anion Gap 9 BUN 48 H Creatinine 1.3 Creat Clearance w eGFR 54.90 POC Glucometer Random Glucose 123 H Lactic Acid Calcium 9.0 Phosphorus 4.4 Magnesium 2.3 Total Bilirubin 0.7 Direct Bilirubin GGT AST 35 ALT 40 Alkaline Phosphatase 119 H Ammonia Creatine Kinase Troponin I 0.07 H Total Protein 7.6 Albumin 3.3 L Urine Color Urine Appearance Urine pH Ur Specific Mcdonald Urine Protein Urine Glucose (UA) Urine Ketones Urine Blood Urine Nitrite Urine Bilirubin Urine Urobilinogen Ur Leukocyte Esterase Ur Random Sodium Ur Random Urea Nitrogn Urine Creatinine Digoxin Salicylates Opiates Screen Methadone Screen Acetaminophen Barbiturate Screen Phencyclidine Screen Ur Amphetamines Screen MDMA (Ecstasy) Screen Benzodiazepines Screen Cocaine Screen U Marijuana (THC) Screen Alcohol, Quantitative Active Medications Generic Name Dose Route Start Last Admin Trade Name Freq PRN Reason Stop Dose Admin Acetaminophen 1,000 mg 05/27/18 14:27 Ofirmev Injection - IVPB Q6H PRN FEVER Albuterol/Ipratropium 1 amp 05/27/18 20:00 05/28/18 08:48 Duoneb - NEB 1 amp RQID SANDY Administration Chlorhexidine Gluconate 1 applic 05/27/18 22:00 05/27/18 22:00 Hibiclens For Decolonization - TP 1 applic HS SANDY Administration Diltiazem HCl 10 mg 05/27/18 21:02 10/15/18 08:03 Cardizem Injection - IVPUSH 10 mg Q4H PRN Administration TACHYCARDIA Heparin Sodium (Porcine) 1,000 unit 05/27/18 20:32 Heparin - IVPUSH PRN PRN Heparin Heparin Sodium (Porcine) 5,000 unit 05/27/18 20:32 Heparin - IVPUSH PRN PRN Heparin Sodium Chloride 1,000 mls @ 100 mls/hr 05/27/18 14:00 05/27/18 15:08 Normal Saline - IV 100 mls/hr ASDIR SANDY Administration Piperacillin Sod/Tazobactam 50 mls @ 100 mls/hr 05/27/18 14:45 05/28/18 02:45 Sod 3.375 gm/ Dextrose IVPB 100 mls/hr Q8H-IV SANDY Administration Protocol Doxycycline Hyclate 100 mg/ 100 mls @ 100 mls/hr 05/28/18 08:00 Dextrose IVPB BID SANDY Heparin Sodium (Porcine) 25, 500 mls @ 20 mls/hr 05/27/18 20:45 05/27/18 23: 30 000 unit/ Sodium Chloride IV 1,000 unit/hr TITR SANDY 20 mls/hr Administration Protocol 1,000 UNIT/HR Methylprednisolone Sodium Succinate 60 mg 05/27/18 18:00 05/28/18 02:45 Solu-Medrol - IVPUSH 60 mg Q8H-IV SANDY Administration Mupirocin 1 applic 05/27/18 22:00 05/27/18 22:00 Bactroban Ointment (For Decolonization) - NS 06/01/18 21:59 1 applic BID SANDY Administration Patient is a 67 year old male with significant Past Medical History of COPD, CHF , CABG (open heart-triple bypass in 2011), Mitral valve repair(2011) A.Fib. ( on Digoxin and Coumadin), CHF and chronic substance abuse was brought in to the ED by family members after he was found to have altered mental status after Metaloxone overdose. ASSESSMENT/ Altered mental status secondary to Metaxalone overdose (serotonin syndrome) Severe sepsis Atrial fibrillation Leukocytosis resolved GISELL-Resolved Elevated troponin COPD CHF Chronic substance abuse PLAN: Atrial fibrillation on Coumadin with subtherapeutic INR. Patient takes Warfarin 5mg PO HS and Digoxin at home, on hold due to NPO. Dig level-0.6 noted Subtherapeutic INR (1.96 on admission), patient is NPO due to lethargy, hence on IV Heparin Drip Was given IV Cardizem and Metoprolol one dose for rate control. Would recommend to continue Coreg 12.5mg PO BID (home dose) Hypertension with hypotensive episodes Hypertensive meds on hold due to hypotensive episodes recommend to resume it once his BP improves. ECHO ordered, pending. Elevated troponin likely due to demand ischemia, however, would r/o ACS Troponin 0.08--> 0.07---> would recommend to trend Case discussed with Dr. Hirsch Dispo: We will continue to follow the patient. Thank you for this consultative opportunity. Visit type - Emergency Visit Emergency Visit: Yes ED Registration Date: 05/27/18 Care time: The patient presented to the Emergency Department on the above date and was hospitalized for further evaluation of their emergent condition. - New Patient This patient is new to me today: Yes Date on this admission: 05/28/18 - Critical Care Critical Care patient: No
--- NOTE | 2018-05-28 10:14 | EKG ---
Test Reason : Blood Pressure : / mmHG Vent. Rate : 091 BPM Atrial Rate : 357 BPM P-R Int : 000 ms QRS Dur : 168 ms QT Int : 388 ms P-R-T Axes : 000 -32 132 degrees QTc Int : 477 ms ATRIAL FIBRILLATION LEFT AXIS DEVIATION LEFT BUNDLE BRANCH BLOCK ABNORMAL ECG WHEN COMPARED WITH ECG OF 27-MAY-2018 10:23, NO SIGNIFICANT CHANGE WAS FOUND Confirmed by CASEY BILLY MD ([id number]) on 05/28/2018 10:13:55 AM Referred By: RAVIN KUMAR Confirmed By:CASEY BILLY MD
--- NOTE | 2018-05-28 10:30 | EKG ---
Test Reason : Blood Pressure : / mmHG Vent. Rate : 133 BPM Atrial Rate : 147 BPM P-R Int : 000 ms QRS Dur : 152 ms QT Int : 340 ms P-R-T Axes : 000 -40 125 degrees QTc Int : 506 ms ATRIAL FIBRILLATION WITH RAPID VENTRICULAR RESPONSE LEFT AXIS DEVIATION LEFT BUNDLE BRANCH BLOCK ABNORMAL ECG NO PREVIOUS ECGS AVAILABLE Confirmed by MARIAJOSE BLAKE, CASEY ([id number]) on 05/28/2018 10:29:50 AM Referred By: Confirmed By:CASEY BILLY MD
[2018-05-28] MEDS: MUPIROCIN 2% TOPICAL OINTMENT FOR DECOLONIZATION NS SCH ×2 (10:31→22:33)
--- NOTE | 2018-05-28 11:08 | CONSULT ---
"Consult [facility]ox [facility] Reason for Current Admission/Consult: substance abuse history, admitted with flexeril overdose - History History of Present Illness: Pt admitted with altered mental status. Family believes that patient took too many muscle relaxants-~10 pills looking for pain relief. Pt was also prescribed percocet 10 pills on 05/22/18. At the time of my visit to ICU pt was tachypneic and dyspneic- was not able to get a substance use history. Confidential Drug Utilization Report Search Terms: Sukhi knapp, 1950 Search Date: 05/28/2018 11:06:14 AM The Drug Utilization Report below displays all of the controlled substance prescriptions, if any, that your patient has filled in the last twelve months. The information displayed on this report is compiled from pharmacy submissions to the Department, and accurately reflects the information as submitted by the pharmacies. This report was requested by: Rena Burden | Reference #: [id number] Others' Prescriptions Patient Name: Sukhi Knapp Date: 1950 Address: [address] [place] [address] Sex: Male Rx Written Rx Dispensed Drug Quantity Days Supply Prescriber Name 05/22/2018 05/22/2018 oxycodone-acetaminophen 2.5-325 mg tab 12 3 Hina Jade 08/12/2017 08/12/2017 oxycodone hcl 5 mg tablet 15 4 Russell Acevedo) 06/22/2017 06/22/2017 oxycodone hcl 5 mg tablet 30 5 Cameron Tipton 06/13/2017 06/13/2017 oxycodone hcl 5 mg tablet 40 4 Cameron Tipton 06/12/2017 06/12/2017 oxycodone hcl 5 mg tablet 10 2 Cameron Tipton 06/03/2017 06/04/2017 oxycodone hcl 5 mg tablet 56 7 Shaun Wesley (BUD ) - Alcohol/Substance Use Hx Alcohol Use: No (sober 9 yrs) - Past Medical History Cardio/Vascular: Yes: AFIB, CAD Pulmonary: Yes: COPD - Past Surgical History Past Surgical History: Yes: CABG Assessment Plan - Diagnosis (1) History of substance use Status: Acute (2) Altered mental status Status: Acute Qualifiers: Altered mental status type: unspecified Qualified Code(s): R41.82 - Altered mental status, unspecified - Plan Plan: Pt with acute dyspneic episode at the time of consult visit. Pt with h/o substance use- will need to get details when pt is more medically stable"
--- NOTE | 2018-05-28 11:27 | PN ---
Physical Exam: SUBJECTIVE: Patient seen and examined OBJECTIVE: Vital Signs Period Temp Pulse Resp BP Sys/Liu Pulse Ox Last 24 Hr 97.8 F-100.0 F 93-116 17-24 103-154/60-89 24-100 GENERAL: Lethargic, withdraws to painful stimuli HEAD: Normal with no signs of trauma. EYES: Pupils equal, round and reactive to light, sclera anicteric, conjunctiva clear. EARS, NOSE, THROAT:dry mucous membranes, no lympadenopathy NECK: Without lymphadenopathy, JVD, or masses. LUNGS: Expiratory wheeze HEART: RRR, normal S1 and S2 without murmur, rub or gallop. ABDOMEN: Soft, nontender, not distended, normoactive bowel sounds, no guarding, no rebound, no masses. No hepatomegaly or splenomegaly. MUSCULOSKELETAL: Enlarged bony deformity of left knee with multiple healed incision scars, intermittent flexing and extending of b/l legs UPPER EXTREMITIES: 2+ pulses, warm, well-perfused. No cyanosis. No clubbing. No peripheral edema. LOWER EXTREMITIES: Scattered raised, rough, patches to b/l LE, 2+ pulses, warm, well-perfused. No calf tenderness. No peripheral edema. NEUROLOGICAL: Rigid range of motion to upper and lower extremities. PSYCHIATRIC: Unable to respond SKIN: Erythema and telangiectasia to cheeks b/l. scattered scabbed lesions over lower extremities. Warm, dry, normal capillary refill. Laboratory Results - last 24 hr 05/27/18 05/27/18 05/27/18 09:25 09:45 10:05 WBC RBC Hgb Hct MCV MCH MCHC RDW Plt Count MPV Absolute Neuts (auto) Neutrophils % Neutrophils % (Manual) Band Neutrophils % Lymphocytes % Lymphocytes % (Manual) Monocytes % Monocytes % (Manual) Eosinophils % Basophils % Nucleated RBC % Hypochromia Platelet Estimate Normal Platelet Comment Few large platelets Polychromasia 1+ Anisocytosis 1+ Microcytosis Macrocytosis 1+ Ehsan Cells 1+ ESR PT with INR INR PTT (Actin FS) Puncture Site ABG pH ABG pCO2 at Pt Temp ABG pO2 at Pt Temp ABG HCO3 ABG O2 Sat (Measured) ABG O2 Content ABG Base Excess Isaac Test VBG pH POC VBG pCO2 POC VBG pO2 Mixed VBG HCO3 O2 Delivery Device Oxygen Flow Rate Sodium Potassium Chloride Carbon Dioxide Anion Gap BUN Creatinine Creat Clearance w eGFR POC Glucometer [id number] Random Glucose Lactic Acid 3.8 H* Calcium Phosphorus Magnesium Total Bilirubin Direct Bilirubin GGT AST ALT Alkaline Phosphatase Ammonia Creatine Kinase Troponin I Total Protein Albumin Ur Random Sodium Ur Random Urea Nitrogn Urine Creatinine Digoxin Salicylates Acetaminophen Alcohol, Quantitative 05/27/18 05/27/18 05/27/18 10:05 10:05 12:05 WBC RBC Hgb Hct MCV MCH MCHC RDW Plt Count MPV Absolute Neuts (auto) Neutrophils % Neutrophils % (Manual) Band Neutrophils % Lymphocytes % Lymphocytes % (Manual) Monocytes % Monocytes % (Manual) Eosinophils % Basophils % Nucleated RBC % Hypochromia Platelet Estimate Platelet Comment Polychromasia Anisocytosis Microcytosis Macrocytosis Ehsan Cells ESR PT with INR INR PTT (Actin FS) Puncture Site ABG pH ABG pCO2 at Pt Temp ABG pO2 at Pt Temp ABG HCO3 ABG O2 Sat (Measured) ABG O2 Content ABG Base Excess Isaac Test VBG pH 7.38 POC VBG pCO2 45.7 POC VBG pO2 59.9 H Mixed VBG HCO3 26.9 H O2 Delivery Device Oxygen Flow Rate Sodium 136 Potassium 5.7 H Chloride 100 Carbon Dioxide 26 Anion Gap 9 BUN 54 H Creatinine 2.0 H Creat Clearance w eGFR 33.39 POC Glucometer Random Glucose 75 Lactic Acid Calcium 9.2 Phosphorus 5.6 H Magnesium 1.8 Total Bilirubin 0.5 Direct Bilirubin GGT AST 19 ALT 23 Alkaline Phosphatase 139 H Ammonia Creatine Kinase 67 Troponin I 0.02 Total Protein 8.1 Albumin 3.6 Ur Random Sodium Ur Random Urea Nitrogn Urine Creatinine Digoxin 0.61 L Salicylates 4.4 Acetaminophen 3.8 L Alcohol, Quantitative < 3.0 05/27/18 05/27/18 05/27/18 15:40 15:50 15:50 WBC 9.5 RBC 3.83 L Hgb 10.5 L Hct 32.8 L MCV 85.8 MCH 27.3 MCHC 31.8 L RDW 20.6 H Plt Count 258 D MPV 8.2 Absolute Neuts (auto) 8.7 H Neutrophils % 91.4 H D Neutrophils % (Manual) 86.0 H Band Neutrophils % 2.0 Lymphocytes % 4.9 L D Lymphocytes % (Manual) 6.0 L Monocytes % 3.4 L Monocytes % (Manual) 6 Eosinophils % 0.1 D Basophils % 0.2 Nucleated RBC % 0 Hypochromia 1+ Platelet Estimate Adequate Platelet Comment Polychromasia 1+ Anisocytosis 2+ Microcytosis 1+ Macrocytosis 1+ Ehsan Cells ESR PT with INR INR PTT (Actin FS) Puncture Site No Result Required. ABG pH 7.34 L ABG pCO2 at Pt Temp 47.7 H ABG pO2 at Pt Temp 158.0 H* ABG HCO3 25.1 ABG O2 Sat (Measured) 98.8 ABG O2 Content 17.0 ABG Base Excess -0.5 Isaac Test No Result Required. VBG pH POC VBG pCO2 POC VBG pO2 Mixed VBG HCO3 O2 Delivery Device Nrm Oxygen Flow Rate 100 Sodium 134 L Potassium 4.9 Chloride 100 Carbon Dioxide 25 Anion Gap 9 BUN 60 H Creatinine 2.1 H Creat Clearance w eGFR 31.56 POC Glucometer Random Glucose 98 Lactic Acid Calcium 8.8 Phosphorus 5.5 H Magnesium 1.9 Total Bilirubin 0.7 Direct Bilirubin 0.4 H GGT AST 28 ALT 33 Alkaline Phosphatase 127 H Ammonia Creatine Kinase Troponin I Total Protein 7.8 Albumin 3.6 Ur Random Sodium Ur Random Urea Nitrogn Urine Creatinine Digoxin Salicylates Acetaminophen Alcohol, Quantitative 05/27/18 05/27/18 05/27/18 15:50 15:50 15:50 WBC RBC Hgb Hct MCV MCH MCHC RDW Plt Count MPV Absolute Neuts (auto) Neutrophils % Neutrophils % (Manual) Band Neutrophils % Lymphocytes % Lymphocytes % (Manual) Monocytes % Monocytes % (Manual) Eosinophils % Basophils % Nucleated RBC % Hypochromia Platelet Estimate Platelet Comment Polychromasia Anisocytosis Microcytosis Macrocytosis Ehsan Cells ESR PT with INR INR PTT (Actin FS) Puncture Site ABG pH ABG pCO2 at Pt Temp ABG pO2 at Pt Temp ABG HCO3 ABG O2 Sat (Measured) ABG O2 Content ABG Base Excess Isaac Test VBG pH POC VBG pCO2 POC VBG pO2 Mixed VBG HCO3 O2 Delivery Device Oxygen Flow Rate Sodium Potassium Chloride Carbon Dioxide Anion Gap BUN Creatinine Creat Clearance w eGFR POC Glucometer Random Glucose Lactic Acid 1.0 Calcium Phosphorus Magnesium Total Bilirubin Direct Bilirubin GGT AST ALT Alkaline Phosphatase Ammonia Creatine Kinase 83 Troponin I 0.05 Total Protein Albumin Ur Random Sodium Ur Random Urea Nitrogn Urine Creatinine Digoxin Salicylates Acetaminophen Alcohol, Quantitative 05/27/18 05/27/18 05/28/18 16:30 16:30 01:00 WBC RBC Hgb Hct MCV MCH MCHC RDW Plt Count MPV Absolute Neuts (auto) Neutrophils % Neutrophils % (Manual) Band Neutrophils % Lymphocytes % Lymphocytes % (Manual) Monocytes % Monocytes % (Manual) Eosinophils % Basophils % Nucleated RBC % Hypochromia Platelet Estimate Platelet Comment Polychromasia Anisocytosis Microcytosis Macrocytosis [place] Cells ESR PT with INR INR PTT (Actin FS) Puncture Site ABG pH ABG pCO2 at Pt Temp ABG pO2 at Pt Temp ABG HCO3 ABG O2 Sat (Measured) ABG O2 Content ABG Base Excess Isaac Test VBG pH POC VBG pCO2 POC VBG pO2 Mixed VBG HCO3 O2 Delivery Device Oxygen Flow Rate Sodium Potassium Chloride Carbon Dioxide Anion Gap BUN Creatinine Creat Clearance w eGFR POC Glucometer Random Glucose Lactic Acid Calcium Phosphorus Magnesium Total Bilirubin Direct Bilirubin GGT AST ALT Alkaline Phosphatase Ammonia 55.66 H Creatine Kinase Troponin I Total Protein Albumin Ur Random Sodium < 18 L Ur Random Urea Nitrogn 561 Urine Creatinine 110.0 H Digoxin Salicylates Acetaminophen Alcohol, Quantitative 05/28/18 05/28/18 05/28/18 01:00 02:30 05:30 WBC 7.2 RBC 4.03 Hgb 10.8 L Hct 34.3 L MCV 84.9 MCH 26.9 MCHC 31.7 L RDW 20.4 H Plt Count 229 MPV 8.1 Absolute Neuts (auto) 6.5 Neutrophils % 91.0 H Neutrophils % (Manual) Band Neutrophils % Lymphocytes % 5.6 L Lymphocytes % (Manual) Monocytes % 3.2 L Monocytes % (Manual) Eosinophils % 0.0 D Basophils % 0.2 Nucleated RBC % 0 Hypochromia Platelet Estimate Platelet Comment Polychromasia Anisocytosis Microcytosis Macrocytosis Ehsan Cells ESR PT with INR INR PTT (Actin FS) Puncture Site ABG pH ABG pCO2 at Pt Temp ABG pO2 at Pt Temp ABG HCO3 ABG O2 Sat (Measured) ABG O2 Content ABG Base Excess Isaac Test VBG pH POC VBG pCO2 POC VBG pO2 Mixed VBG HCO3 O2 Delivery Device Oxygen Flow Rate Sodium Potassium Chloride Carbon Dioxide Anion Gap BUN Creatinine Creat Clearance w eGFR POC Glucometer Random Glucose Lactic Acid Calcium Phosphorus Magnesium Total Bilirubin Direct Bilirubin GGT 75 AST ALT Alkaline Phosphatase Ammonia Creatine Kinase Troponin I 0.08 H Cancelled Total Protein Albumin Ur Random Sodium Ur Random Urea Nitrogn Urine Creatinine Digoxin Salicylates Acetaminophen Alcohol, Quantitative 05/28/18 05/28/18 05/28/18 05:30 05:30 05:30 WBC RBC Hgb Hct MCV MCH MCHC RDW Plt Count MPV Absolute Neuts (auto) Neutrophils % Neutrophils % (Manual) Band Neutrophils % Lymphocytes % Lymphocytes % (Manual) Monocytes % Monocytes % (Manual) Eosinophils % Basophils % Nucleated RBC % Hypochromia Platelet Estimate Platelet Comment Polychromasia Anisocytosis Microcytosis Macrocytosis [place] Cells ESR 72 H PT with INR 31.10 H INR 2.61 H PTT (Actin FS) 32.2 Puncture Site ABG pH ABG pCO2 at Pt Temp ABG pO2 at Pt Temp ABG HCO3 ABG O2 Sat (Measured) ABG O2 Content ABG Base Excess Isaac Test VBG pH POC VBG pCO2 POC VBG pO2 Mixed VBG HCO3 O2 Delivery Device Oxygen Flow Rate Sodium 141 Potassium 4.0 Chloride 106 Carbon Dioxide 26 Anion Gap 9 BUN 48 H Creatinine 1.3 Creat Clearance w eGFR 54.90 POC Glucometer Random Glucose 123 H Lactic Acid Calcium 9.0 Phosphorus 4.4 Magnesium 2.3 Total Bilirubin 0.7 Direct Bilirubin GGT AST 35 ALT 40 Alkaline Phosphatase 119 H Ammonia Creatine Kinase Troponin I 0.07 H Total Protein 7.6 Albumin 3.3 L Ur Random Sodium Ur Random Urea Nitrogn Urine Creatinine Digoxin Salicylates Acetaminophen Alcohol, Quantitative Active Medications Generic Name Dose Route Start Last Admin Trade Name Freq PRN Reason Stop Dose Admin Acetaminophen 1,000 mg 05/27/18 14:27 Ofirmev Injection - IVPB Q6H PRN FEVER Albuterol/Ipratropium 1 amp 05/27/18 20:00 05/28/18 08:48 Duoneb - NEB 1 amp RQID SANDY Administration Chlorhexidine Gluconate 1 applic 05/27/18 22:00 05/27/18 22:00 Hibiclens For Decolonization - TP 1 applic HS SANDY Administration Diltiazem HCl 10 mg 05/27/18 21:02 05/28/18 08:03 Cardizem Injection - IVPUSH 10 mg Q4H PRN Administration TACHYCARDIA Heparin Sodium (Porcine) 1,000 unit 05/27/18 20:32 Heparin - IVPUSH PRN PRN Heparin Heparin Sodium (Porcine) 5,000 unit 05/27/18 20:32 Heparin - IVPUSH PRN PRN Heparin Sodium Chloride 1,000 mls @ 100 mls/hr 05/27/18 14:00 05/27/18 15:08 Normal Saline - IV 100 mls/hr ASDIR SANDY Administration Piperacillin Sod/Tazobactam 50 mls @ 100 mls/hr 05/27/18 14:45 05/28/18 10:23 Sod 3.375 gm/ Dextrose IVPB 100 mls/hr Q8H-IV SANDY Administration Protocol Doxycycline Hyclate 100 mg/ 100 mls @ 100 mls/hr 05/28/18 08:00 05/28/18 10: 07 Dextrose IVPB 100 mls/hr BID SANDY Administration Heparin Sodium (Porcine) 25, 500 mls @ 20 mls/hr 05/27/18 20:45 05/27/18 23: 30 000 unit/ Sodium Chloride IV 1,000 unit/hr TITR SANDY 20 mls/hr Administration Protocol 1,000 UNIT/HR Methylprednisolone Sodium Succinate 60 mg 05/27/18 18:00 05/28/18 10:22 Solu-Medrol - IVPUSH 60 mg Q8H-IV SANDY Administration Mupirocin 1 applic 05/27/18 22:00 05/28/18 10:31 Bactroban Ointment (For Decolonization) - NS 06/01/18 21:59 1 applic BID SANDY Administration Imaging Head CT without contrast: No CT evidence of acute intracranial pathology CXR: Large heart, sternal sutures and clips and some congestive changes and a questionable early infiltrate developing at the left base. ASSESSMENT/PLAN: 67 year old male with a PMH significant for A-fib (on Coumadin), HTN, COPD, Depression, former ETOH and current prescription opiod abuse admitted for suspected overdose on metaxalone. Acute respiratory distress secondary to metaxalone overdose vs LLL infiltrate --Hx of COPD and current smoker --Started on Zosyn and docycycline --Solu-medrol 60 mg q8H --O2 via NC @5LPM, Duonebs --Blood and sputum cultures pending Metaxalone OD/Opiod Abuse --Possible serotonin syndrome --Consulted with poison control and recommended Ativan push for clonus symptoms , monitor temperature, and supportive care --Consult with Dr. Burden pending --Family interested in inpatient detox at [facility] --BUN/Cr 54/2.0 --> 60/2.1 --NS @100 cc/hr --Seen by career development coordinator/teacher, continue with current plan of care --Renal US and urine urea nitrogen ordered Hyperkalemia --K 5.7 --> 4.9 after given Kayexalate 30 m --Monitor BMP A-fib --Hold Coumadin and digoxin --On heparin drip, PTT goal 50-70 seconds --INR 1.96, monitor daily --Echocardiogram and serial ECGs HTN --Hold home carvedilol and lasix --monitor BP HLD --Hold home fenofibrate and Vascepa FEN -NS @ 100ml/hr -monitor electrolytes and correct as needed, K 5.7 -NPO DVT Prophylaxis -SCDs -heparin gtt Dispo: pt currently requires further inpatient care. FULL CODE Visit type - Emergency Visit Emergency Visit: Yes ED Registration Date: 05/27/18 Care time: The patient presented to the Emergency Department on the above date and was hospitalized for further evaluation of their emergent condition. - New Patient This patient is new to me today: No - Critical Care Critical Care patient: Yes Total Critical Care Time (in minutes): 35 Critical Care Statement: The care of this patient involved high complexity decision making to prevent further life threatening deterioration of the patient 's condition and/or to evaluate & treat vital organ system(s) failure or risk of failure.
[2018-05-28] MEDS ORDERED: SODIUM CHLORIDE 1,000 ML IV SCH ×2 (11:59→13:06)
[2018-05-28 12:24] LABS: ANISOCYTOSIS 1+; MACROCYTOSIS 0; PLATELET ESTIMATE NORMAL
--- NOTE | 2018-05-28 13:05 | PN ---
Teaching Attending Note Name of Resident: Lane Gallegos ATTENDING PHYSICIAN STATEMENT I saw and evaluated the patient. I reviewed the resident's note and discussed the case with the resident. I agree with the resident's findings and plan as documented. SUBJECTIVE: Pt seen and examined in the ICU. Mental status improving but still lethargic. No fevers recorded. OBJECTIVE: Vital Signs Period Temp Pulse Resp BP Sys/Liu Pulse Ox Last 24 Hr 97.8 F-100.0 F 93-116 17-20 110-154/64-89 92-95 Intake & Output 05/25/18 05/26/18 05/27/18 05/28/18 23:59 23:59 23:59 23:59 Intake Total 400 800 Output Total 1500 500 Balance -1100 300 Weight 102.058 kg 96.524 kg Gen: lethargic but arousable HEENT: dry mucous membranes Heart: tachycardic, regular Lung: scattered wheezes Abd: soft, nontender Ext: no edema CBC, BMP 05/28/18 05:30 05/28/18 05:30 Active Medications Acetaminophen (Ofirmev Injection -) 1,000 mg IVPB Q6H PRN PRN Reason: FEVER Albuterol/Ipratropium (Duoneb -) 1 amp NEB RQID SANDY Last Admin: 05/28/18 08:48 Dose: 1 amp Chlorhexidine Gluconate (Hibiclens For Decolonization -) 1 applic TP HS SANDY Last Admin: 05/27/18 22:00 Dose: 1 applic Diltiazem HCl (Cardizem Injection -) 10 mg IVPUSH Q4H PRN PRN Reason: TACHYCARDIA Last Admin: 05/28/18 08:03 Dose: 10 mg Heparin Sodium (Porcine) (Heparin -) 1,000 unit IVPUSH PRN PRN PRN Reason: Heparin Heparin Sodium (Porcine) (Heparin -) 5,000 unit IVPUSH PRN PRN PRN Reason: Heparin Piperacillin Sod/Tazobactam (Sod 3.375 gm/ Dextrose) 50 mls @ 100 mls/hr IVPB Q8H-IV SANDY; Protocol Last Admin: 05/28/18 10:23 Dose: 100 mls/hr Doxycycline Hyclate 100 mg/ (Dextrose) 100 mls @ 100 mls/hr IVPB BID SANDY Last Admin: 05/28/18 10:07 Dose: 100 mls/hr Heparin Sodium (Porcine) 25, (000 unit/ Sodium Chloride) 500 mls @ 20 mls/hr IV TITR SANDY; Protocol Last Admin: 05/27/18 23:30 Dose: 1,000 unit/hr, 20 mls/hr Sodium Chloride (Normal Saline -) 1,000 mls @ 150 mls/hr IV ASDIR SANDY Methylprednisolone Sodium Succinate (Solu-Medrol -) 60 mg IVPUSH Q8H-IV SANDY Last Admin: 05/28/18 10:22 Dose: 60 mg Mupirocin (Bactroban Ointment (For Decolonization) -) 1 applic NS BID SANDY Stop: 06/01/18 21:59 Last Admin: 05/28/18 10:31 Dose: 1 applic ASSESSMENT AND PLAN: Drug Overdose r/o Aspiration Pneumonia CAD s/p CABG CHF Acute COPD Exacerbation h/o MVR Atrial Fibrillation with RVR Polysubstance Abuse - continue IVF - monitor QTc - continue antibiotics - f/u cultures - continue medrol - inhaled bronchodilators - rate control - continue anticoagulation - aspiration precautions - NPO except meds until mental status improved - DVT prophylaxis critical care time spent in reviewing chart, evaluating patient and formulating plan 35 min
--- NOTE | 2018-05-28 14:26 | EKG ---
Test Reason : Blood Pressure : / mmHG Vent. Rate : 106 BPM Atrial Rate : 156 BPM P-R Int : 000 ms QRS Dur : 164 ms QT Int : 374 ms P-R-T Axes : 000 -42 123 degrees QTc Int : 496 ms ATRIAL FIBRILLATION WITH RAPID VENTRICULAR RESPONSE LEFT AXIS DEVIATION LEFT BUNDLE BRANCH BLOCK ABNORMAL ECG WHEN COMPARED WITH ECG OF 28-MAY-2018 09:00, NO SIGNIFICANT CHANGE WAS FOUND Confirmed by MARIAJOSE BLAKE, CASEY ([id number]) on 05/28/2018 2:25:58 PM Referred By: Confirmed By:CASEY BILLY MD
[2018-05-28 15:38] LABS: ARTERIAL BLD GAS O2 SATURATION 91.4 % (90-98.9); ARTERIAL BLOOD GAS BASE EXCESS 1.7 meq/l (-2-2); ARTERIAL BLOOD GAS PCO2 35.5 mmHg (35-45); ARTERIAL BLOOD GAS PO2 70.2 mmHg (80-100); ARTERIAL BLOOD GAS pH 7.46 (7.35-7.45)
[2018-05-28 15:40] LABS: ALLENS TEST POSITIVE
--- NOTE | 2018-05-28 15:51 | ECHO ---
Name: BENSON KOHLER Exam:Adult Echocardiogram Study Date: 05/28/2018 02:42 PM Age: 67 yrs Reason For Study: A-Fib Height: 71 in Weight: 225 lb BSA: 2.2 m2 BP: 161/90 mmHg MMode/2D Measurements & Calculations IVSd: 0.93 cm Ao root diam: 4.0 cm LVIDd: 4.8 cm LA dimension: 4.5 cm LVIDs: 3.8 cm LVPWd: 1.2 cm EDV(Teich): 107.0 ml MV Diam: 2.6 cm ESV(Teich): 60.6 ml LVOT diam: 2.1 cm Doppler Measurements & Calculations MR max salvatore: 514.2 cm/sec MV area (1 diam): 5.5 cm2 MR max P.1 mmHg MV Flow area(1diam): 5.5 cm2 TR max salvatore: 383.1 cm/sec Med Peak E' Salvatore: 3.0 cm/sec TR max P.7 mmHg Procedure A complete two-dimensional transthoracic echocardiogram was performed (2D, M-mode, Doppler and color flow Doppler). Left Ventricle The left ventricle is normal in size. Left ventricular systolic function is moderately reduced. Eject ion Fraction = 40-45%. Septal motion is consistent with post-operative state. There is moderate global hy pokinesis of the left ventricle. Right Ventricle The right ventricle is not well visualized. Atria The left atrium is mildly dilated. The right atrium is mildly dilated. Mitral Valve MV ring present. There is mild mitral annular calcification. There is moderate mitral regurgitation. Tricuspid Valve The tricuspid valve is normal in structure and function. There is mild tricuspid regurgitation. Pulmo kristin artery systolic pressure is at least 74 mmHg assuming RA pressure of 15 mmHg (dilated IVC with <50% c ollapse). There is severe pulmonary hypertension. Aortic Valve There is mild aortic sclerosis.;. No aortic regurgitation is present. Pulmonic Valve The pulmonic valve is not well visualized. Great Vessels Mild aortic root dilatation. Pericardium/Pleura There is no pericardial effusion. Interpretation Summary The left ventricle is normal in size. Left ventricular systolic function is moderately reduced. Septal motion is consistent with post-operative state. There is moderate global hypokinesis of the left ventricle. Ejection Fraction = 40-45%. The right ventricle is not well visualized. The left atrium is mildly dilated. The right atrium is mildly dilated. MV ring present. There is mild mitral annular calcification. There is moderate mitral regurgitation. There is mild tricuspid regurgitation. Pulmomary artery systolic pressure is at least 74 mmHg assuming RA pressure of 15 mmHg (dilated IVC w ith <50% collapse) There is severe pulmonary hypertension. There is mild aortic sclerosis. No aortic regurgitation is present. Mild aortic root dilatation. There is no pericardial effusion. Previous study is not available for comparison Chemo Morgan MD 05/28/2018 03:50 PM
[2018-05-28] MEDS ORDERED: FUROSEMIDE 40 MG/4 ML INJECTABLE VIAL IVPUSH ONE ×2 (15:53→20:25)
--- NOTE | 2018-05-28 15:56 | PN ---
Physical Exam: SUBJECTIVE: Patient seen and examined. Awake, fully speaking, but fades in and out of consciousness, Pt. states that he feels like he is losing consciousness. He does not remember his last BM. Pt. endorses increased work of breathing and having to work more to catch his breath. OBJECTIVE: Vital Signs Period Temp Pulse Resp BP Sys/Liu Pulse Ox Last 24 Hr 97.8 F-98.7 F 93-116 17-30 125-154/70-89 92-94 GENERAL: Awake, alert, A&O x 1 in the morning, but has increased in alertness in the afternoon. Fades in and out of consciousness. HEAD: Normal with no signs of gross trauma. EYES: PERRL, extraocular movements intact, Pt. unable to properly answer how many fingers holding up in all visual castillo but states he can see me clearly, perhaps moving fingers too fast vs. difficulty tracking ENT: Ears normal, nares patent, oropharynx clear without exudates, moist mucous membranes. NECK: Stridor, no carotid bruit LUNGS: Diffuse coarse breath sounds with diffuse wheezing, audible without auscultation. Pt. has wet sounding non-productive cough HEART: Tachycardic, Irregular rate and rhythm ABDOMEN: Soft, nondistended, normoactive bowel sounds, RUQ tenderness, dull to percussion EXTREMITIES: 2+ dorsal pedal pulses, warm, well-perfused, no edema, no calf tenderness. NEUROLOGICAL: Normal speech, gait not observed. PSYCH: Anxious SKIN: Warm, dry, normal turgor, facial rosacea/telictangasia on cheeks. Laboratory Results - last 24 hr 05/27/18 05/27/18 05/27/18 10:05 15:50 15:50 WBC 9.5 RBC 3.83 L Hgb 10.5 L Hct 32.8 L MCV 85.8 MCH 27.3 MCHC 31.8 L RDW 20.6 H Plt Count 258 D MPV 8.2 Absolute Neuts (auto) 8.7 H Neutrophils % 91.4 H D Neutrophils % (Manual) 86.0 H Band Neutrophils % 2.0 Lymphocytes % 4.9 L D Lymphocytes % (Manual) 6.0 L Monocytes % 3.4 L Monocytes % (Manual) 6 Eosinophils % 0.1 D Eosinophils % (Manual) Basophils % 0.2 Basophils % (Manual) Myelocytes % (Man) Promyelocytes % (Man) Blast Cells % (Manual) Nucleated RBC % 0 Metamyelocytes Hypochromia 1+ Platelet Estimate Adequate Polychromasia 1+ Poikilocytosis Anisocytosis 2+ Microcytosis 1+ Macrocytosis 1+ ESR PT with INR INR PTT (Actin FS) Puncture Site ABG pH ABG pCO2 at Pt Temp ABG pO2 at Pt Temp ABG HCO3 ABG O2 Sat (Measured) ABG O2 Content ABG Base Excess Isaac Test Oxygen Flow Rate Sodium 134 L Potassium 4.9 Chloride 100 Carbon Dioxide 25 Anion Gap 9 BUN 60 H Creatinine 2.1 H Creat Clearance w eGFR 31.56 Random Glucose 98 Lactic Acid Calcium 8.8 Phosphorus 5.6 H 5.5 H Magnesium 1.8 1.9 Total Bilirubin 0.7 Direct Bilirubin 0.4 H GGT AST 28 ALT 33 Alkaline Phosphatase 127 H Ammonia Creatine Kinase Troponin I Total Protein 7.8 Albumin 3.6 Ur Random Sodium Ur Random Urea Nitrogn Urine Creatinine 05/27/18 05/27/18 05/27/18 15:50 15:50 15:50 WBC RBC Hgb Hct MCV MCH MCHC RDW Plt Count MPV Absolute Neuts (auto) Neutrophils % Neutrophils % (Manual) Band Neutrophils % Lymphocytes % Lymphocytes % (Manual) Monocytes % Monocytes % (Manual) Eosinophils % Eosinophils % (Manual) Basophils % Basophils % (Manual) Myelocytes % (Man) Promyelocytes % (Man) Blast Cells % (Manual) Nucleated RBC % Metamyelocytes Hypochromia Platelet Estimate Polychromasia Poikilocytosis Anisocytosis Microcytosis Macrocytosis ESR PT with INR INR PTT (Actin FS) Puncture Site ABG pH ABG pCO2 at Pt Temp ABG pO2 at Pt Temp ABG HCO3 ABG O2 Sat (Measured) ABG O2 Content ABG Base Excess Isaac Test Oxygen Flow Rate Sodium Potassium Chloride Carbon Dioxide Anion Gap BUN Creatinine Creat Clearance w eGFR Random Glucose Lactic Acid 1.0 Calcium Phosphorus Magnesium Total Bilirubin Direct Bilirubin GGT AST ALT Alkaline Phosphatase Ammonia Creatine Kinase 83 Troponin I 0.05 Total Protein Albumin Ur Random Sodium Ur Random Urea Nitrogn Urine Creatinine 05/27/18 05/27/18 05/28/18 16:30 16:30 01:00 WBC RBC Hgb Hct MCV MCH MCHC RDW Plt Count MPV Absolute Neuts (auto) Neutrophils % Neutrophils % (Manual) Band Neutrophils % Lymphocytes % Lymphocytes % (Manual) Monocytes % Monocytes % (Manual) Eosinophils % Eosinophils % (Manual) Basophils % Basophils % (Manual) Myelocytes % (Man) Promyelocytes % (Man) Blast Cells % (Manual) Nucleated RBC % Metamyelocytes Hypochromia Platelet Estimate Polychromasia Poikilocytosis Anisocytosis Microcytosis Macrocytosis ESR PT with INR INR PTT (Actin FS) Puncture Site ABG pH ABG pCO2 at Pt Temp ABG pO2 at Pt Temp ABG HCO3 ABG O2 Sat (Measured) ABG O2 Content ABG Base Excess Isaac Test Oxygen Flow Rate Sodium Potassium Chloride Carbon Dioxide Anion Gap BUN Creatinine Creat Clearance w eGFR Random Glucose Lactic Acid Calcium Phosphorus Magnesium Total Bilirubin Direct Bilirubin GGT AST ALT Alkaline Phosphatase Ammonia 55.66 H Creatine Kinase Troponin I Total Protein Albumin Ur Random Sodium < 18 L Ur Random Urea Nitrogn 561 Urine Creatinine 110.0 H 05/28/18 05/28/18 05/28/18 01:00 02:30 05:30 WBC 7.2 RBC 4.03 Hgb 10.8 L Hct 34.3 L MCV 84.9 MCH 26.9 MCHC 31.7 L RDW 20.4 H Plt Count 229 MPV 8.1 Absolute Neuts (auto) 6.5 Neutrophils % 91.0 H Neutrophils % (Manual) 90.8 H Band Neutrophils % 0.0 Lymphocytes % 5.6 L Lymphocytes % (Manual) 7.2 L Monocytes % 3.2 L Monocytes % (Manual) 2 L Eosinophils % 0.0 D Eosinophils % (Manual) 0.0 Basophils % 0.2 Basophils % (Manual) 0.0 Myelocytes % (Man) 0 Promyelocytes % (Man) 0 Blast Cells % (Manual) 0 Nucleated RBC % 0 Metamyelocytes 0 Hypochromia 0 Platelet Estimate Normal Polychromasia 0 Poikilocytosis 0 Anisocytosis 1+ Microcytosis 1+ Macrocytosis 0 ESR PT with INR INR PTT (Actin FS) Puncture Site ABG pH ABG pCO2 at Pt Temp ABG pO2 at Pt Temp ABG HCO3 ABG O2 Sat (Measured) ABG O2 Content ABG Base Excess Isaac Test Oxygen Flow Rate Sodium Potassium Chloride Carbon Dioxide Anion Gap BUN Creatinine Creat Clearance w eGFR Random Glucose Lactic Acid Calcium Phosphorus Magnesium Total Bilirubin Direct Bilirubin GGT 75 AST ALT Alkaline Phosphatase Ammonia Creatine Kinase Troponin I 0.08 H Cancelled Total Protein Albumin Ur Random Sodium Ur Random Urea Nitrogn Urine Creatinine 05/28/18 05/28/18 05/28/18 05:30 05:30 05:30 WBC RBC Hgb Hct MCV MCH MCHC RDW Plt Count MPV Absolute Neuts (auto) Neutrophils % Neutrophils % (Manual) Band Neutrophils % Lymphocytes % Lymphocytes % (Manual) Monocytes % Monocytes % (Manual) Eosinophils % Eosinophils % (Manual) Basophils % Basophils % (Manual) Myelocytes % (Man) Promyelocytes % (Man) Blast Cells % (Manual) Nucleated RBC % Metamyelocytes Hypochromia Platelet Estimate Polychromasia Poikilocytosis Anisocytosis Microcytosis Macrocytosis ESR 72 H PT with INR 31.10 H INR 2.61 H PTT (Actin FS) 32.2 Puncture Site ABG pH ABG pCO2 at Pt Temp ABG pO2 at Pt Temp ABG HCO3 ABG O2 Sat (Measured) ABG O2 Content ABG Base Excess Isaac Test Oxygen Flow Rate Sodium 141 Potassium 4.0 Chloride 106 Carbon Dioxide 26 Anion Gap 9 BUN 48 H Creatinine 1.3 Creat Clearance w eGFR 54.90 Random Glucose 123 H Lactic Acid Calcium 9.0 Phosphorus 4.4 Magnesium 2.3 Total Bilirubin 0.7 Direct Bilirubin GGT AST 35 ALT 40 Alkaline Phosphatase 119 H Ammonia Creatine Kinase Troponin I 0.07 H Total Protein 7.6 Albumin 3.3 L Ur Random Sodium Ur Random Urea Nitrogn Urine Creatinine 05/28/18 05/28/18 15:07 15:07 WBC RBC Hgb Hct MCV MCH MCHC RDW Plt Count MPV Absolute Neuts (auto) Neutrophils % Neutrophils % (Manual) Band Neutrophils % Lymphocytes % Lymphocytes % (Manual) Monocytes % Monocytes % (Manual) Eosinophils % Eosinophils % (Manual) Basophils % Basophils % (Manual) Myelocytes % (Man) Promyelocytes % (Man) Blast Cells % (Manual) Nucleated RBC % Metamyelocytes Hypochromia Platelet Estimate Polychromasia Poikilocytosis Anisocytosis Microcytosis Macrocytosis ESR PT with INR INR PTT (Actin FS) 41.7 H Puncture Site Right radial ABG pH 7.46 H ABG pCO2 at Pt Temp 35.5 D ABG pO2 at Pt Temp 70.2 L D ABG HCO3 24.9 ABG O2 Sat (Measured) 91.4 ABG O2 Content 14.8 L ABG Base Excess 1.7 Isaac Test Positive Oxygen Flow Rate Yes Sodium Potassium Chloride Carbon Dioxide Anion Gap BUN Creatinine Creat Clearance w eGFR Random Glucose Lactic Acid Calcium Phosphorus Magnesium Total Bilirubin Direct Bilirubin GGT AST ALT Alkaline Phosphatase Ammonia Creatine Kinase Troponin I Total Protein Albumin Ur Random Sodium Ur Random Urea Nitrogn Urine Creatinine Active Medications Current Medications Acetaminophen (Ofirmev Injection -) 1,000 mg IVPB Q6H PRN PRN Reason: FEVER Albuterol/Ipratropium (Duoneb -) 1 amp NEB RQID SANDY Last Admin: 05/28/18 12:35 Dose: 1 amp Chlorhexidine Gluconate (Hibiclens For Decolonization -) 1 applic TP HS SANDY Last Admin: 05/27/18 22:00 Dose: 1 applic Diltiazem HCl (Cardizem Injection -) 10 mg IVPUSH Q4H PRN PRN Reason: TACHYCARDIA Last Admin: 05/28/18 14:07 Dose: 10 mg Furosemide (Lasix Injection -) 40 mg IVPUSH ONCE ONE Stop: 05/28/18 15:54 Heparin Sodium (Porcine) (Heparin -) 1,000 unit IVPUSH PRN PRN PRN Reason: Heparin Heparin Sodium (Porcine) (Heparin -) 5,000 unit IVPUSH PRN PRN PRN Reason: Heparin Piperacillin Sod/Tazobactam (Sod 3.375 gm/ Dextrose) 50 mls @ 100 mls/hr IVPB Q8H-IV SANDY; Protocol Last Admin: 05/28/18 10:23 Dose: 100 mls/hr Doxycycline Hyclate 100 mg/ (Dextrose) 100 mls @ 100 mls/hr IVPB BID SANDY Last Admin: 05/28/18 10:07 Dose: 100 mls/hr Heparin Sodium (Porcine) 25, (000 unit/ Sodium Chloride) 500 mls @ 20 mls/hr IV TITR SANDY; Protocol Last Admin: 05/27/18 23:30 Dose: 1,000 unit/hr, 20 mls/hr Sodium Chloride (Normal Saline -) 1,000 mls @ 100 mls/hr IV ASDIR SANDY Last Admin: 05/28/18 13:00 Dose: 100 mls/hr Methylprednisolone Sodium Succinate (Solu-Medrol -) 60 mg IVPUSH Q8H-IV SANDY Last Admin: 05/28/18 10:22 Dose: 60 mg Mupirocin (Bactroban Ointment (For Decolonization) -) 1 applic NS BID SANDY Stop: 06/01/18 21:59 Last Admin: 05/28/18 10:31 Dose: 1 applic Saliva Substitute (Mouthkote Solution -) 1 applic MM DAILY [facility] ASSESSMENT/PLAN: A 67 y.o. M w/ PMHx. of COPD, CHF, CABG (open heart-triple bypass in 2011), Mitral valve repair(2011) A.Fib. (on Digoxin and Coumadin), CHF and chronic substance abuse, presents to the ER with AMS 2/2 Metaxalone overdose. #Pulmonology -Acute respiratory distress 2/2 Metaxalone OD and Pneumonia D/C-ed NC, attempted to try NRB, however Rpt. ABG shows PCO2 of 35.5 with increased work of breathing on PE, decision was made to initiate BiPAP. Duonebs received Solu-medrol 125mg c/w Solu-medrol 60mg Q8H CXR: shows diffuse b/l infiltrates start Zosyn and Doxycycline for broad spectrum coverage, Please avoid Quinolones and Azithromycin as Pt.s QTC is 506 and 496 on rpt. f/u Bcx. and SCx. Initial WBC:13.7, Rpt WBC: 9.5 #Cardiology -HTN Hold home anti-hypertensives as Pt. is NPO -A. Fib F/U Echo read D/C Diltiazem b/c of hx. of CHF Lopressor 5mg Q4H PRN, until able to tolerate PO medications. At home on Carvedilol PO 12.5mg BID Hold Warfarin On Heparin gtt in the AM. Cardiology consult (Dr. Hirsch) appreciated. INR: 1.96 --> 2.16 today Initial EKG: A. Fib w/ RVR, LBBB, QTc: 506, QRS: 152; Rpt. EKG is unchanged, QTc : 496 hold Digoxin as Pt. cannot tolerate PO intake now Digoxin level: 0.61 -CAD c/w ASA 81mg Trop: 0.02-->0.05-->0.08-->0.07 #Nephrology -GISELL vs. CKD-resolving Given 1x dose 40mg IVP Lasix BUN: 54 Cr. :1.3 D/C IVF f/u BMP in AM Renal US: No acute Pathology, small b/l cysts, no evidence of hydronephrosis FeNa and FUrea both indicate pre-renal disease #Neurology -AMS 2/[address] Head: wnl, Rpt. CT: wnl Nicotine Patch 21 ordered #F/E/N -D/C IVF -Given 2L in ED -NPO -monitor electrolytes and correct as needed. #DVT -SCDs -INR: 2.16 -c/w heparin gtt Dispo: We will continue to follow the patient. Thank you for this consultative opportunity. Visit type - Emergency Visit Emergency Visit: Yes ED Registration Date: 05/27/18 Care time: The patient presented to the Emergency Department on the above date and was hospitalized for further evaluation of their emergent condition. - New Patient This patient is new to me today: No - Critical Care Critical Care patient: Yes Total Critical Care Time (in minutes): 44 Critical Care Statement: The care of this patient involved high complexity decision making to prevent further life threatening deterioration of the patient 's condition and/or to evaluate & treat vital organ system(s) failure or risk of failure. - Discharge Referral Referred to [facility] No
[2018-05-28] MEDS ORDERED: LORazepam 2 MG/ML SDV VIAL IVPUSH ONE ×3 (16:16→22:47)
[2018-05-28] MEDS ORDERED: METOPROLOL TARTRATE 5 MG/5 ML VIAL IVPUSH PRN ×2 (16:24→16:27)
--- NOTE | 2018-05-28 16:37 | PN ---
Progress Note, Physician History of Present Illness: patient still with breathing difficuilty on bipap in room desats off of bipa afebrile more awake and alert - Current Medication List Current Medications: Active Medications Acetaminophen (Ofirmev Injection -) 1,000 mg IVPB Q6H PRN PRN Reason: FEVER Albuterol/Ipratropium (Duoneb -) 1 amp NEB RQID SANDY Last Admin: 05/28/18 12:35 Dose: 1 amp Chlorhexidine Gluconate (Hibiclens For Decolonization -) 1 applic TP HS SANDY Last Admin: 05/27/18 22:00 Dose: 1 applic Heparin Sodium (Porcine) (Heparin -) 1,000 unit IVPUSH PRN PRN PRN Reason: Heparin Heparin Sodium (Porcine) (Heparin -) 5,000 unit IVPUSH PRN PRN PRN Reason: Heparin Piperacillin Sod/Tazobactam (Sod 3.375 gm/ Dextrose) 50 mls @ 100 mls/hr IVPB Q8H-IV SANDY; Protocol Last Admin: 05/28/18 10:23 Dose: 100 mls/hr Doxycycline Hyclate 100 mg/ (Dextrose) 100 mls @ 100 mls/hr IVPB BID SANDY Last Admin: 05/28/18 10:07 Dose: 100 mls/hr Heparin Sodium (Porcine) 25, (000 unit/ Sodium Chloride) 500 mls @ 20 mls/hr IV TITR SANDY; Protocol Last Admin: 05/27/18 23:30 Dose: 1,000 unit/hr, 20 mls/hr Methylprednisolone Sodium Succinate (Solu-Medrol -) 60 mg IVPUSH Q8H-IV SANDY Last Admin: 05/28/18 10:22 Dose: 60 mg Metoprolol Tartrate (Lopressor Injection -) 5 mg IVPUSH Q4H PRN PRN Reason: HYPERTENSION Mupirocin (Bactroban Ointment (For Decolonization) -) 1 applic NS BID SANDY Stop: 06/01/18 21:59 Last Admin: 05/28/18 10:31 Dose: 1 applic Saliva Substitute (Mouthkote Solution -) 1 applic MM DAILY SANDY - Objective Vital Signs: Vital Signs Temperature 98.7 F 05/28/18 11:35 Pulse Rate 111 H 05/28/18 12:00 Respiratory Rate 24 H 05/28/18 12:00 Blood Pressure 150/82 05/28/18 12:00 O2 Sat by Pulse Oximetry (%) 92 L 05/28/18 08:56 Constitutional: Yes: No Distress, Calm Cardiovascular: Yes: Regular Rate and Rhythm, Tachycardia Respiratory: Yes: On BiPap, Poor Air Entry Gastrointestinal: Yes: Normal Bowel Sounds, Soft Musculoskeletal: Yes: WNL Extremities: Yes: WNL Neurological: Yes: Alert Psychiatric: Yes: Alert Labs: CBC, BMP 05/28/18 05:30 05/28/18 05:30 INR, PTT INR 2.61 (0.83-1.09) H 05/28/18 05:30 - ....Imaging Cat Scan: Report Reviewed, Image Reviewed Ultrasound: Report Reviewed Assessment/Plan 67 y.o. with PMH of COPD, CABG, AFIB, CHF, and prescription drug abuse presented to ER with AMS, less responsive with possible ingestion of multiple Flexeril pills Flexeril Overdose/Rigidity R/O malignant hyperthermia Possible Sepsis PNA / possible aspiration Acute Resp Distress Fever/Leukocytosis/elevated lactic acid level COPD CAD s/p CABG Atrial Fibrillation CHF plan continue current mgmt continue abx resp support monitor for fever rest continue as per icu cc 40 min
[2018-05-28] MEDS: LYTES/YERBA SANTA 240 ML BOTTLE MM SCH (17:03)
[2018-05-28] MEDS: NICOTINE 21 MG/24 HOURS TOPICAL PATCH TD SCH (17:07)
[2018-05-28] MEDS ORDERED: HALOPERIDOL LACTATE 5 MG/ML IM ONE (18:22)
[2018-05-28] MEDS ORDERED: DIGOXIN 0.5 MG/2 ML AMPUL IVPUSH ONE (18:30)
[2018-05-28] MEDS ORDERED: LORazepam 2 MG/ML SDV VIAL ONE (18:59)
--- NOTE | 2018-05-28 19:21 | PN ---
Progress Note (short form) - Note Progress Note: Based on the last EKG, the actual QTc manually calculated using the [place] formula = [id number] and using Lemos Formula =[id number]. Based on this Qtc is not prolonged and medication precautions are no longer necessary. [place] is considered most accurate. https://www.ncbi.nlm.nih.gov/pmc/ articles/TUE8815422/
[2018-05-28] MEDS: HEPARIN - 25,000 UNIT in SODIUM CHLORIDE 495 ML IV SCH (19:30)
[2018-05-28] MEDS ORDERED: LORazepam 2 MG/ML SDV VIAL IVPUSH PRN (19:46)
--- NOTE | 2018-05-28 21:07 | CON.CARD ---
Cardiology Consult (text) - Consultation Consultation Note: Asked to see the patient for systolic CHF, atrial fibrillation and CAD. The patient was seen and examined, case discussed with In brief, 67 year-old man with a PMHx of HTN, DM, HLD, CAD, s/p CABG x3 and MV repair 05/16/12, chronic atrial fibrillation on warfarin, chronic systolic CHF, LBBB, CKD, COPD, restless leg syndrome admitted on 05/27/2018 after took 10 pills of flexeril (cyclobenzaprine or Metaxalone 800 mg with Tramadol 100mg pills) with altered MS, possible serotonin syndrome. He was found to have temp of 100.1 F, afib with mild VR at 110 bpm, leukocytosis of 13, hyperkalemia 5.7, lactic acid 3.8, creatinine of 2. Admitted in ICU for further evaluation and treatment. Cardiac tests: Echocardiogram 05/23/2017: TDS. Normal LV size. 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 Regadenoson stress test 05/05/17: There is non-transmural inferior wall myocardial infarction with LVEF= 38%. Assessment: 1) Acute on chronic systolic CHF with dyspnea and fluid overload. 2) Chronic atrial fibrillation with mild VR. 3) CAD, s/p CABG. 4) Severe MR, s/p MV repair with residual moderate MR. Recommendations: 1) Systolic CHF Start IV Lasix 40 mg q12 h to keep Os > Is. Monitor Os and Is and daily weight. Monitor electrolytes and renal function. Continue IV metoprolol 5 mg q4h. Add losartan when po possible. 2)VR control: IV Digoxin 0.25 mg daily for 2 days and digoxin 0.125 mg daily when po possible. IV metoprolol 5 mg q4h during NPO. Start metoprolol tartrate 25 mg BID when PO possible. Continue Warfarin to keep INR 2-3. 3) CAD s/p CABG 2011 Stable, No recurrent angina. Troponin is borderline and non-dynamic (0.08--> 0.07) demand ischemia, not ACS. Metoprolol IV as above. Resume statin. 4) Severe MR, s/p MV repair with residual moderate MR. Monitor severity of MR and cardiac dimension and function. Repeat echo. We will follow with you.
[2018-05-28] MEDS: CHLORHEXIDINE GLUCONATE 4% CLEANSER FOR DECOLONIZATION TP SCH (22:30)
[2018-05-29] MEDS ORDERED: DEXTROSE 5%-WATER - 50 ML IVPB ONE ×3 (01:50→16:31)
[2018-05-29] MEDS ORDERED: PIPERACILLIN/TAZOBACTAM 3.375 GM VIAL IVPB ONE ×3 (01:50→16:31)
[2018-05-29] MEDS: methylPREDNISolone NA SUCC 40 MG/1 ML VIAL IVPUSH SCH ×3 (02:00→21:12)
[2018-05-29] MEDS: PIPERACILLIN/TAZOB 3.375 GM 3.375 GM in DEXTROSE 5%-WATER - 50 ML IVPB SCH ×3 (02:01→17:11)
[2018-05-29 06:13] LABS: BASO % 0.2 % (0-2.0); EOS % 0.1 % (0-4.5); HEMATOCRIT 34.3 % (35.4-49); MCH 26.9 pg (25.7-33.7); MEAN CELL VOLUME 84.1 fl (80-96); MEAN PLT VOLUME 7.9 fl (7.5-11.1); MONO % 2.4 % (3.8-10.2); NEUT % 93.3 % (42.8-82.8); PLATELET COUNT 226 K/MM3 (134-434); RBC 4.08 M/mm3 (4.00-5.60); RDW 20.6 % (11.9-15.9); WHITE BLOOD COUNT 9.2 K/mm3 (4.0-10.0)
[2018-05-29 06:50] LABS: ALBUMIN 3.2 g/dl (3.4-5.0); ALK PHOS 110 U/L (45-117); ANION GAP 7 MMOL/L (8-16); BILIRUBIN,DIRECT 0.4 mg/dL (0.0-0.2); BILIRUBIN,TOTAL 0.9 mg/dL (0.2-1); BLOOD UREA NITROGEN 44 mg/dL (7-18); CALCIUM 9.2 mg/dL (8.5-10.1); CHLORIDE 108 mmol/L (98-107); CO2 28 mmol/L (21-32); GLUCOSE,RANDOM 126 mg/dL (74-106); MAGNESIUM 2.3 mg/dL (1.8-2.4); PHOSPHOROUS 2.9 mg/dL (2.5-4.9); POTASSIUM 3.7 mmol/L (3.5-5.1); SGOT/AST 37 U/L (15-37); SGPT/ALT 55 U/L (13-61); SODIUM 144 mmol/L (136-145); TOT PROT 7.3 g/dl (6.4-8.2)
[2018-05-29] MEDS: ALBUTEROL SO4 2.5/IPRATROPIUM 0.5 INH SOL 3 ML VIAL.NEB. NEB SCH ×2 (08:31→12:00)
[2018-05-29] MEDS ORDERED: DIGOXIN 0.5 MG/2 ML AMPUL IVPUSH ONE (09:13)
[2018-05-29 09:33] LABS: ANISOCYTOSIS 1+; MACROCYTOSIS 1+; OVALOCYTE 1+; PLATELET ESTIMATE NORMAL
--- NOTE | 2018-05-29 10:35 | PN ---
Progress Note, Physician History of Present Illness: seen and examined today in nad. unresponsive. no overnight events. - Current Medication List Current Medications: Active Medications Acetaminophen (Ofirmev Injection -) 1,000 mg IVPB Q6H PRN PRN Reason: FEVER Albuterol/Ipratropium (Duoneb -) 1 amp NEB RQID SANDY Last Admin: 05/29/18 08:31 Dose: 1 amp Chlorhexidine Gluconate (Hibiclens For Decolonization -) 1 applic TP HS SANDY Last Admin: 05/28/18 22:30 Dose: 1 applic Furosemide (Lasix Injection -) 40 mg IVPB BID@0600,1400 SANDY Heparin Sodium (Porcine) (Heparin -) 1,000 unit IVPUSH PRN PRN PRN Reason: Heparin Heparin Sodium (Porcine) (Heparin -) 5,000 unit IVPUSH PRN PRN PRN Reason: Heparin Piperacillin Sod/Tazobactam (Sod 3.375 gm/ Dextrose) 50 mls @ 100 mls/hr IVPB Q8H-IV SANDY; Protocol Last Admin: 05/29/18 02:01 Dose: 100 mls/hr Doxycycline Hyclate 100 mg/ (Dextrose) 100 mls @ 100 mls/hr IVPB BID SANDY Last Admin: 05/28/18 22:29 Dose: 100 mls/hr Heparin Sodium (Porcine) 25, (000 unit/ Sodium Chloride) 500 mls @ 20 mls/hr IV TITR SANDY; Protocol Last Titration: 05/28/18 23:59 Dose: 1,350 unit/hr, 27 mls/hr Lorazepam (Ativan Injection -) 4 mg IVPUSH Q4H PRN PRN Reason: AGITATION Last Admin: 05/28/18 19:55 Dose: 4 mg Methylprednisolone Sodium Succinate (Solu-Medrol -) 60 mg IVPUSH Q8H-IV SANDY Last Admin: 05/29/18 02:00 Dose: 60 mg Metoprolol Tartrate (Lopressor Injection -) 5 mg IVPUSH Q4H PRN PRN Reason: HYPERTENSION Last Admin: 05/28/18 16:48 Dose: 5 mg Mupirocin (Bactroban Ointment (For Decolonization) -) 1 applic NS BID SANDY Stop: 06/01/18 21:59 Last Admin: 05/28/18 22:33 Dose: 1 applic Nicotine (Nicoderm Patch -) 21 mg TD DAILY [facility] Last Admin: 05/28/18 17:07 Dose: 21 mg Saliva Substitute (Mouthkote Solution -) 1 applic MM DAILY [facility] Last Admin: 05/28/18 17:03 Dose: 1 applic - Objective Vital Signs: Vital Signs Temperature 96.7 F L 05/29/18 00:00 Pulse Rate 90 05/29/18 08:00 Respiratory Rate 19 05/29/18 08:00 Blood Pressure 144/71 05/29/18 08:00 O2 Sat by Pulse Oximetry (%) 98 05/29/18 08:15 Constitutional: Yes: No Distress, Calm Eyes: Yes: Conjunctiva Clear, EOM Intact HENT: Yes: Atraumatic, Normocephalic Neck: Yes: Supple, Trachea Midline Cardiovascular: Yes: Regular Rate and Rhythm, S1, S2. No: Bradycardia, Tachycardia, Pulse Irregular, Bruit, JVD, Gallop, Murmur, Rub, S3, S4, Varicosities Respiratory: Yes: Regular, Diminished. No: Rales, Rhonchi, SOB, Wheezes Gastrointestinal: Yes: Normal Bowel Sounds, Soft Extremities: Yes: WNL Edema: No Peripheral Pulses WNL: Yes Neurological: No: Alert, Oriented Psychiatric: No: Alert, Oriented Labs: CBC, BMP 05/29/18 05:30 05/29/18 05:30 INR, PTT INR 2.61 (0.83-1.09) H 05/28/18 05:30 - ....Imaging Chest X-ray: Report Reviewed, Image Reviewed EKG: Report Reviewed, Image Reviewed Other: Report Reviewed, Image Reviewed (tele-af/aflutter, HR adequate) Assessment/Plan 67 year-old man with a PMHx of HTN, DM, HLD, CAD, s/p CABG x3 and MV repair 10/23, chronic atrial fibrillation on warfarin, chronic systolic CHF, LBBB, CKD , COPD, restless leg syndrome admitted on 05/27/2018 after took 10 pills of flexeril (cyclobenzaprine or Metaxalone 800 mg with Tramadol 100mg pills) with altered MS, possible serotonin syndrome. He was found to have temp of 100.1 F, afib with mild VR at 110 bpm, leukocytosis of 13, hyperkalemia 5.7, lactic acid 3.8, creatinine of 2. Admitted in ICU for further evaluation and treatment. Cardiac tests: Echocardiogram 05/23/2017: TDS. Normal LV size. 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 Regadenoson stress test 05/05/17: There is non-transmural inferior wall myocardial infarction with LVEF= 38%. Assessment: 1) Acute on chronic systolic CHF with dyspnea and fluid overload. 2) Chronic atrial fibrillation with mild VR. 3) CAD, s/p CABG. 4) Severe MR, s/p MV repair with residual moderate MR. Recommendations: 1) Systolic CHF -cont IV Lasix 40 mg q12 h to keep Os > Is. -Monitor Os and Is and daily weight. -Monitor electrolytes and renal function. -Continue IV metoprolol 5 mg q4h. -Add losartan when po possible. 2)AF with mild RVR-HR adequately controlled for now -s/p IV Digoxin 0.25 mg daily for 2 days, start digoxin 0.125 mg daily when po possible. -cont IV metoprolol 5 mg q4h while NPO. Start metoprolol tartrate 25 mg BID when PO possible. -Continue Warfarin to keep INR 2-3. 3) CAD s/p CABG 2011 -Stable, No reported recurrent angina. -Troponin is borderline and non-dynamic (0.08--> 0.07) demand ischemia, not ACS. -Metoprolol IV as above. -Resume statin when possible 4) Severe MR, s/p MV repair with residual moderate MR. -stable -can repeat echo when pt improves to re-evaluate We will follow with you.
[2018-05-29] MEDS: NICOTINE 21 MG/24 HOURS TOPICAL PATCH TD SCH (10:43)
[2018-05-29] MEDS: DOXYCYCLINE INJECTION 100 MG in DEXTROSE 5%-WATER - 100 ML IVPB SCH ×2 (10:44→21:12)
[2018-05-29] MEDS: LYTES/YERBA SANTA 240 ML BOTTLE MM SCH (10:44)
[2018-05-29] MEDS: MUPIROCIN 2% TOPICAL OINTMENT FOR DECOLONIZATION NS SCH (11:00)
[2018-05-29] MEDS ORDERED: ALBUTEROL SO4 2.5/IPRATROPIUM 0.5 INH SOL 3 ML VIAL.NEB. NEB PRN ×2 (12:08→15:54)
--- NOTE | 2018-05-29 12:37 | PN ---
Teaching Attending Note Name of Resident: Lane Gallegos ATTENDING PHYSICIAN STATEMENT I saw and evaluated the patient. I reviewed the resident's note and discussed the case with the resident. I agree with the resident's findings and plan as documented. SUBJECTIVE: Pt seen and examined in the ICU. Mental status much improved today. Volume overloaded yesterday with improvement after lasix. OBJECTIVE: Vital Signs Period Temp Pulse Resp BP Sys/Liu Pulse Ox Last 24 Hr 96.7 F-97.7 F 85-116 19-25 137-160/68-89 93-99 Intake & Output 05/26/18 05/27/18 05/28/18 05/29/18 23:59 23:59 23:59 23:59 Intake Total 400 1700 474 Output Total 1500 4300 1500 Balance -1100 -2600 -1026 Weight 102.058 kg 96.524 kg 97.5 kg Gen: more awake, alert Heart: RRR Lung: scattered rhonchi, wheezes Abd: soft, nontender Ext: no edema CBC, BMP 05/29/18 05:30 05/29/18 05:30 Active Medications Acetaminophen (Ofirmev Injection -) 1,000 mg IVPB Q6H PRN PRN Reason: FEVER Albuterol/Ipratropium (Duoneb -) 1 amp NEB Q6H PRN PRN Reason: Dyspnea Carvedilol (Coreg -) 12.5 mg PO BID [facility] Chlorhexidine Gluconate (Hibiclens For Decolonization -) 1 applic TP HS [facility] Last Admin: 05/28/18 22:30 Dose: 1 applic Digoxin (Lanoxin Injection -) 1.25 mg IVPUSH ONCE ONE Stop: 05/30/18 06:01 Furosemide (Lasix Injection -) 40 mg IVPB BID@0600,1400 [facility] Heparin Sodium (Porcine) (Heparin -) 1,000 unit IVPUSH PRN PRN PRN Reason: Heparin Heparin Sodium (Porcine) (Heparin -) 5,000 unit IVPUSH PRN PRN PRN Reason: Heparin Piperacillin Sod/Tazobactam (Sod 3.375 gm/ Dextrose) 50 mls @ 100 mls/hr IVPB Q8H-IV [facility]; Protocol Last Admin: 05/29/18 10:36 Dose: 100 mls/hr Doxycycline Hyclate 100 mg/ (Dextrose) 100 mls @ 100 mls/hr IVPB BID [facility] Last Admin: 05/29/18 10:44 Dose: 100 mls/hr Heparin Sodium (Porcine) 25, (000 unit/ Sodium Chloride) 500 mls @ 20 mls/hr IV TITR [facility]; Protocol Last Titration: 05/29/18 09:00 Dose: 1,450 unit/hr, 29 mls/hr Potassium Chloride (Potassium Chloride 10 Meq Premix Ivpb -) 10 meq in 100 mls @ 100 mls/hr IVPB Q60M [facility] Stop: 05/29/18 15:29 Lorazepam (Ativan Injection -) 4 mg IVPUSH Q4H PRN PRN Reason: AGITATION Last Admin: 05/28/18 19:55 Dose: 4 mg Methylprednisolone Sodium Succinate (Solu-Medrol -) 40 mg IVPUSH BID [facility] Metoprolol Tartrate (Lopressor Injection -) 5 mg IVPUSH Q4H PRN PRN Reason: HYPERTENSION Last Admin: 05/28/18 16:48 Dose: 5 mg Mupirocin (Bactroban Ointment (For Decolonization) -) 1 applic NS BID [facility] Stop: 06/01/18 21:59 Last Admin: 05/29/18 11:00 Dose: 1 applic Nicotine (Nicoderm Patch -) 21 mg TD DAILY [facility] Last Admin: 05/29/18 10:43 Dose: 21 mg Saliva Substitute (Mouthkote Solution -) 1 applic MM DAILY [facility] Last Admin: 05/29/18 10:44 Dose: 1 applic Warfarin Sodium (Coumadin -) 5 mg PO DAILY@1800 [facility] ASSESSMENT AND PLAN: Drug Overdose r/o Aspiration Pneumonia CAD s/p CABG Acute on Chronic Systolic Heart Failure Pulmonary HTN Acute COPD Exacerbation h/o MVR Atrial Fibrillation with RVR Polysubstance Abuse - continue lasix - continue antibiotics - f/u cultures - can decrease medrol - inhaled bronchodilators - rate control - continue anticoagulation - aspiration precautions - PO as tolerated - DVT prophylaxis - can monitor on telemetry critical care time spent in reviewing chart, evaluating patient and formulating plan 35 min
--- NOTE | 2018-05-29 13:28 | PN ---
Physical Exam: SUBJECTIVE: Patient seen and examined at the bedside. feels well today, in no acute distress. breathing improved. OBJECTIVE: Vital Signs Period Temp Pulse Resp BP Sys/Liu Pulse Ox Last 24 Hr 96.7 F-97.7 F 85-116 19-25 137-160/68-89 93-99 GENERAL: The patient is awake, alert, no acute distress. AMS on admission, mental status improving. HEAD: Normal with no signs of trauma. EYES: PERRL, extraocular movements intact, sclera anicteric, conjunctiva clear. No ptosis. ENT: Ears normal, nares patent, oropharynx clear without exudates, moist mucous membranes. NECK: Trachea midline, full range of motion, supple. LUNGS: diffused wheezing bilateral lungs, tolerating room air HEART: Regular rate and rhythm, S1, S2 without murmur, rub or gallop. ABDOMEN: Soft, nontender, nondistended, normoactive bowel sounds EXTREMITIES: no edema. NEUROLOGICAL:Normal speech, gait not observed. PSYCH: Normal mood, normal affect. SKIN: Warm, dry, normal turgor, no rashes or lesions noted Laboratory Results - last 24 hr 05/28/18 05/28/18 05/28/18 15:07 15:07 21:00 WBC RBC Hgb Hct MCV MCH MCHC RDW Plt Count MPV Absolute Neuts (auto) Neutrophils % Neutrophils % (Manual) Band Neutrophils % Lymphocytes % Lymphocytes % (Manual) Monocytes % Monocytes % (Manual) Eosinophils % Eosinophils % (Manual) Basophils % Basophils % (Manual) Myelocytes % (Man) Promyelocytes % (Man) Blast Cells % (Manual) Nucleated RBC % Metamyelocytes Hypochromia Platelet Estimate Polychromasia Poikilocytosis Anisocytosis Microcytosis Macrocytosis Ovalocytes PTT (Actin FS) 41.7 H 40.2 H Puncture Site Right radial ABG pH 7.46 H ABG pCO2 at Pt Temp 35.5 D ABG pO2 at Pt Temp 70.2 L D ABG HCO3 24.9 ABG O2 Sat (Measured) 91.4 ABG O2 Content 14.8 L ABG Base Excess 1.7 Isaac Test Positive Oxygen Flow Rate Yes Sodium Potassium Chloride Carbon Dioxide Anion Gap BUN Creatinine Creat Clearance w eGFR Random Glucose Calcium Phosphorus Magnesium Total Bilirubin Direct Bilirubin AST ALT Alkaline Phosphatase Total Protein Albumin 10/05/29/18 05/29/18 05:30 05:30 05:30 WBC 9.2 RBC 4.08 Hgb 11.0 L Hct 34.3 L MCV 84.1 MCH 26.9 MCHC 32.0 RDW 20.6 H Plt Count 226 MPV 7.9 Absolute Neuts (auto) 8.6 H Neutrophils % 93.3 H Neutrophils % (Manual) 95.9 H Band Neutrophils % 0.0 Lymphocytes % 4.0 L D Lymphocytes % (Manual) 1.7 L D Monocytes % 2.4 L Monocytes % (Manual) 2 L Eosinophils % 0.1 D Eosinophils % (Manual) 0.8 D Basophils % 0.2 Basophils % (Manual) 0.0 Myelocytes % (Man) 0 Promyelocytes % (Man) 0 Blast Cells % (Manual) 0 Nucleated RBC % 0 Metamyelocytes 0 Hypochromia 0 Platelet Estimate Normal Polychromasia 0 Poikilocytosis 1+ Anisocytosis 1+ Microcytosis 1+ Macrocytosis 1+ Ovalocytes 1+ PTT (Actin FS) 41.7 H Puncture Site ABG pH ABG pCO2 at Pt Temp ABG pO2 at Pt Temp ABG HCO3 ABG O2 Sat (Measured) ABG O2 Content ABG Base Excess Isaac Test Oxygen Flow Rate Sodium 144 Potassium 3.7 Chloride 108 H Carbon Dioxide 28 Anion Gap 7 L BUN 44 H Creatinine 1.0 Creat Clearance w eGFR > 60 Random Glucose 126 H Calcium 9.2 Phosphorus 2.9 Magnesium 2.3 Total Bilirubin 0.9 Direct Bilirubin 0.4 H AST 37 ALT 55 Alkaline Phosphatase 110 Total Protein 7.3 Albumin 3.2 L Active Medications Generic Name Dose Route Start Last Admin Trade Name Giovanni PRN Reason Stop Dose Admin Acetaminophen 1,000 mg 05/27/18 14:27 Ofirmev Injection - IVPB Q6H PRN FEVER Albuterol/Ipratropium 1 amp 05/29/18 12:08 Duoneb - NEB Q6H PRN Dyspnea Carvedilol 12.5 mg 05/29/18 22:00 Coreg - PO BID [facility] Chlorhexidine Gluconate 1 applic 05/27/18 22:00 05/28/18 22:30 Hibiclens For Decolonization - TP 1 applic HS [facility] Administration Digoxin 1.25 mg 05/30/18 06:00 Lanoxin Injection - IVPUSH 05/30/18 06:01 ONCE ONE Furosemide 40 mg 05/29/18 14:00 Lasix Injection - IVPB BID@0600,1400 [facility] Heparin Sodium (Porcine) 1,000 unit 05/27/18 20:32 Heparin - IVPUSH PRN PRN Heparin Heparin Sodium (Porcine) 5,000 unit 05/27/18 20:32 Heparin - IVPUSH PRN PRN Heparin Piperacillin Sod/Tazobactam 50 mls @ 100 mls/hr 05/27/18 14:45 05/29/18 10:36 Sod 3.375 gm/ Dextrose IVPB 100 mls/hr Q8H-IV [facility] Administration Protocol Doxycycline Hyclate 100 mg/ 100 mls @ 100 mls/hr 05/28/18 08:00 05/29/18 10: 44 Dextrose IVPB 100 mls/hr BID [facility] Administration Heparin Sodium (Porcine) 25, 500 mls @ 20 mls/hr 05/27/18 20:45 05/29/18 09: 00 000 unit/ Sodium Chloride IV 1,450 unit/hr TITR [facility] 29 mls/hr Titration Protocol 1,000 UNIT/HR Potassium Chloride 10 meq in 100 mls @ 100 mls/hr 05/29/18 12:30 Potassium Chloride 10 Meq Premix Ivpb - IVPB 05/29/18 15:29 Q60M [facility] Lorazepam 4 mg 05/28/18 19:46 05/28/18 19:55 Ativan Injection - IVPUSH 4 mg Q4H PRN Administration AGITATION Methylprednisolone Sodium Succinate 40 mg 05/29/18 22:00 Solu-Medrol - IVPUSH BID [facility] Metoprolol Tartrate 5 mg 05/28/18 16:27 05/28/18 16:48 Lopressor Injection - IVPUSH 5 mg Q4H PRN Administration HYPERTENSION Mupirocin 1 applic 05/27/18 22:00 05/29/18 11:00 Bactroban Ointment (For Decolonization) - NS 06/01/18 21:59 1 applic BID [facility] Administration Nicotine 21 mg 05/28/18 17:00 05/29/18 10:43 Nicoderm Patch - TD 21 mg DAILY [facility] Administration Saliva Substitute 1 applic 05/28/18 15:30 05/29/18 10:44 Mouthkote Solution - MM 1 applic DAILY [facility] Administration Warfarin Sodium 5 mg 05/29/18 18:00 Coumadin - PO DAILY@1800 [facility] ASSESSMENT/PLAN: Patient is a 67 year old male with a significant past medical history of 67 year old male with a PMH significant for atrial fibrillation (on coumadin), hypertension, COPD, depression, former ETOH abuse with current prescription opiod abuse. He presents to the ED after he was found by his family with altered mental status and unsteady gait. Patient was believed to have taken approximately ten Metaxalone 800mg tablets. Patient was reported to abuse opiod pain medications after having various knee surgeries. Family is hoping patient enters a rehab program for opioid detox after hospitalization. ------ Atrial fibrillation Hypertension Systolic CHF COPD Acute Respiratory Distress in the setting of Opioid overdose Pneumonia Depression ETOH abuse, history Opioid abuse Toxic metabolic encepholopathy GISELL on CKD ------ Card: Atrial fibrillation, history. On heparin drip with bridge to coumadin. goal inr 2-3, currently 1.8. Hypertension. BP controlled on losartan and metoprolol bid. Elevated troponins: 0.02, 0.05, 0.08. cardiology following. monitor on tele.denies chest pain or shortness of breath. Systolic CHF. On Lasix q 12, monitor intake and ouput with daily weights. Pulm: Acute Respiratory Distress in the setting of Opioid overdose Respiratory status improving. Stable oxygen on room air. Noted to have diffused scatterd wheezing and on Solumedrol. Will continue to monitor oxygen saturations on room air and on ambulation. Pre and post prior to discharge. Pulmonary following. Pneumonia, acute. Chest xray with bilateral infiltrates. On Zosyn and Doxycycline. Monitor labs, vitals, respiratory status. Psyche/Neuro:: Toxic metabolic encepholopathy in the setting of metaxalone overdose. Family interested in inpatient detox at [facility]. Monitor mentation. Depression, history ETOH abuse, history Renal: GISELL on CKD: Creat 1.0. Monitor renal function daily. Renal US w/o evidence of hydronephrosis. fen tolerating PO monitor electrolytes low sat diet prophylaxis: heparin drip to coumadin bridge full code Visit type - Emergency Visit Emergency Visit: Yes ED Registration Date: 05/27/18 Care time: The patient presented to the Emergency Department on the above date and was hospitalized for further evaluation of their emergent condition. - New Patient This patient is new to me today: Yes Date on this admission: 05/29/18 - Critical Care Critical Care patient: No - Discharge Referral Referred to [facility] No
[2018-05-29] MEDS: KCL 10 MEQ IVPB 10 MEQ/100 ML INFUS.BAG IVPB SCH ×2 (13:34→16:29)
[2018-05-29] MEDS ORDERED: FUROSEMIDE 40 MG/4 ML INJECTABLE VIAL IVPB SCH (14:00)
[2018-05-29 14:24] VITALS: BMI 29.8
[2018-05-29 14:24] LABS: INR 1.86 (0.83-1.09); PROTHROMBIN TIME (PATIENT) 22.1 SEC (9.7-13.0)
--- NOTE | 2018-05-29 15:21 | PN ---
Progress Note, Physician History of Present Illness: patient doing well now off of bipap and mask breathing better no complaints still looks flushed - Current Medication List Current Medications: Active Medications Acetaminophen (Ofirmev Injection -) 1,000 mg IVPB Q6H PRN PRN Reason: FEVER Last Admin: 05/29/18 13:34 Dose: 1,000 mg Albuterol/Ipratropium (Duoneb -) 1 amp NEB Q6H PRN PRN Reason: Dyspnea Chlorhexidine Gluconate (Hibiclens For Decolonization -) 1 applic TP HS [facility] Last Admin: 05/28/18 22:30 Dose: 1 applic Digoxin (Lanoxin Injection -) 0.125 mg IVPUSH ONCE ONE Stop: 05/30/18 06:01 Furosemide (Lasix Injection -) 40 mg IVPB BID@0600,1400 [facility] Last Admin: 05/29/18 13:39 Dose: 40 mg Heparin Sodium (Porcine) (Heparin -) 1,000 unit IVPUSH PRN PRN PRN Reason: Heparin Heparin Sodium (Porcine) (Heparin -) 5,000 unit IVPUSH PRN PRN PRN Reason: Heparin Piperacillin Sod/Tazobactam (Sod 3.375 gm/ Dextrose) 50 mls @ 100 mls/hr IVPB Q8H-IV [facility]; Protocol Last Admin: 05/29/18 10:36 Dose: 100 mls/hr Doxycycline Hyclate 100 mg/ (Dextrose) 100 mls @ 100 mls/hr IVPB BID [facility] Last Admin: 05/29/18 10:44 Dose: 100 mls/hr Heparin Sodium (Porcine) 25, (000 unit/ Sodium Chloride) 500 mls @ 20 mls/hr IV TITR [facility]; Protocol Last Titration: 05/29/18 09:00 Dose: 1,450 unit/hr, 29 mls/hr Potassium Chloride (Potassium Chloride 10 Meq Premix Ivpb -) 10 meq in 100 mls @ 100 mls/hr IVPB Q60M [facility] Stop: 05/29/18 15:29 Last Admin: 05/29/18 13:34 Dose: 100 mls/hr Lidocaine (Lidoderm Patch -) 1 patch TP DAILY [facility] Lorazepam (Ativan Injection -) 4 mg IVPUSH Q4H PRN PRN Reason: AGITATION Last Admin: 05/28/18 19:55 Dose: 4 mg Losartan Potassium (Cozaar -) 25 mg PO DAILY [facility] Methylprednisolone Sodium Succinate (Solu-Medrol -) 40 mg IVPUSH BID [facility] Metoprolol Tartrate (Lopressor Injection -) 5 mg IVPUSH Q4H PRN PRN Reason: HYPERTENSION Last Admin: 05/28/18 16:48 Dose: 5 mg Metoprolol Tartrate (Lopressor -) 25 mg PO BID [facility] Miscellaneous (Lidoderm Patch Removal) 1 each MC DAILY@2200 [facility] Mupirocin (Bactroban Ointment (For Decolonization) -) 1 applic NS BID [facility] Stop: 06/01/18 21:59 Last Admin: 05/29/18 11:00 Dose: 1 applic Nicotine (Nicoderm Patch -) 21 mg TD DAILY [facility] Last Admin: 05/29/18 10:43 Dose: 21 mg Saliva Substitute (Mouthkote Solution -) 1 applic MM DAILY [facility] Last Admin: 05/29/18 10:44 Dose: 1 applic Warfarin Sodium (Coumadin -) 5 mg PO DAILY@1800 [facility] - Objective Vital Signs: Vital Signs Temperature 98.2 F 05/29/18 13:31 Pulse Rate 90 05/29/18 13:31 Respiratory Rate 19 05/29/18 13:31 Blood Pressure 146/79 05/29/18 13:31 O2 Sat by Pulse Oximetry (%) 98 05/29/18 08:15 Constitutional: Yes: No Distress, Calm Cardiovascular: Yes: Regular Rate and Rhythm, Tachycardia Respiratory: Yes: Regular, On Nasal O2, Poor Air Entry Gastrointestinal: Yes: Normal Bowel Sounds, Soft Musculoskeletal: Yes: WNL Extremities: Yes: WNL Neurological: Yes: Alert, Oriented Psychiatric: Yes: Alert, Oriented Labs: CBC, BMP 05/29/18 05:30 05/29/18 05:30 INR, PTT INR 1.86 (0.83-1.09) H 05/29/18 13:45 - ....Imaging Chest X-ray: Report Reviewed, Image Reviewed Assessment/Plan 67 y.o. with PMH of COPD, CABG, AFIB, CHF, and prescription drug abuse presented to ER with AMS, less responsive with possible ingestion of multiple Flexeril pills Flexeril Overdose/Rigidity R/O malignant hyperthermia Possible Sepsis PNA / possible aspiration Acute Resp Distress Fever/Leukocytosis/elevated lactic acid level COPD CAD s/p CABG Atrial Fibrillation CHF plan continue current mgmt will start deescaalting from tomorrow rest continue as per icu incentive nevaeh cc 40 min
[2018-05-29] MEDS ORDERED: HEPARIN NA (PORCINE) 5,000 UNITS/ML 1ML VIAL IVPUSH PRN ×4 (15:54)
[2018-05-29] MEDS ORDERED: METOPROLOL TARTRATE 5 MG/5 ML VIAL IVPUSH PRN (15:54)
[2018-05-29] MEDS ORDERED: LORazepam 2 MG/ML SDV VIAL IVPUSH PRN (15:54)
[2018-05-29] MEDS: LIDOCAINE 5% TOPICAL PATCH TP SCH (16:11)
[2018-05-29] MEDS: HEPARIN - 25,000 UNIT in SODIUM CHLORIDE 495 ML IV SCH (16:12)
[2018-05-29 16:19] LABS: ALDOLASE 10.2 U/L (3.3-10.3)
[2018-05-29] MEDS ORDERED: POTASSIUM CHLORIDE TABS 20 MEQ TABLET.ER (FP) PO ONE (16:23)
[2018-05-29] MEDS: WARFARIN NA 5 MG TABLET (UD) PO SCH (17:10)
--- NOTE | 2018-05-29 17:41 | PN ---
Physical Exam: SUBJECTIVE: Patient seen and examined. Pt. given Ativan 4 mg x 2 for agitation. 40mg Lasix was given over night with 1L of urine output. Yesterday evening Pt. placed on BiPAP d/t increased work of breathing in the setting of improving ABG. Pt. was later weaned off BiPAP to NC. Pt. endorses increased SOB when lying flat, HOB elevated to 30 degrees. Pt. denies any other symptoms including chest pain. numbness and tingling in extremities or lightheadness. OBJECTIVE: Vital Signs Period Temp Pulse Resp BP Sys/Liu Pulse Ox Last 24 Hr 96.7 F-98.2 F 85-107 19-25 137-160/68-87 93-99 GENERAL: The patient is awake, alert and oriented to name, in no acute distress. EYES: sclera anicteric, conjunctiva clear. No ptosis. ENT: Ears normal, nares patent, oropharynx clear without exudates, moist mucous membranes. LUNGS: Improved breathing compared to yesterday, diffuse wheezes and crackles, no accessory muscle use. HEART: Regular rate and rhythm, S1, S2 without murmur, rub or gallop. ABDOMEN: Soft, nontender, nondistended, normoactive bowel sounds EXTREMITIES: 2+dorsal pedal pulses, warm, nocalf-tenderness, well-perfused, no edema, 2< sec. cap. refill NEUROLOGICAL: Normal speech, wide based gait. PSYCH: Normal mood, normal affect. SKIN: Warm, dry, normal turgor Laboratory Results - last 24 hr 05/28/18 05/28/18 05/29/18 05:30 21:00 05:30 WBC RBC Hgb Hct MCV MCH MCHC RDW Plt Count MPV Absolute Neuts (auto) Neutrophils % Neutrophils % (Manual) Band Neutrophils % Lymphocytes % Lymphocytes % (Manual) Monocytes % Monocytes % (Manual) Eosinophils % Eosinophils % (Manual) Basophils % Basophils % (Manual) Myelocytes % (Man) Promyelocytes % (Man) Blast Cells % (Manual) Nucleated RBC % Metamyelocytes Hypochromia Platelet Estimate Polychromasia Poikilocytosis Anisocytosis Microcytosis Macrocytosis Ovalocytes PT with INR INR PTT (Actin FS) 40.2 H 41.7 H Sodium Potassium Chloride Carbon Dioxide Anion Gap BUN Creatinine Creat Clearance w eGFR Random Glucose Calcium Phosphorus Magnesium Total Bilirubin Direct Bilirubin AST ALT Alkaline Phosphatase Total Protein Albumin Aldolase 10.2 05/29/18 05/29/18 05/29/18 05:30 05:30 13:45 WBC 9.2 RBC 4.08 Hgb 11.0 L Hct 34.3 L MCV 84.1 MCH 26.9 MCHC 32.0 RDW 20.6 H Plt Count 226 MPV 7.9 Absolute Neuts (auto) 8.6 H Neutrophils % 93.3 H Neutrophils % (Manual) 95.9 H Band Neutrophils % 0.0 Lymphocytes % 4.0 L D Lymphocytes % (Manual) 1.7 L D Monocytes % 2.4 L Monocytes % (Manual) 2 L Eosinophils % 0.1 D Eosinophils % (Manual) 0.8 D Basophils % 0.2 Basophils % (Manual) 0.0 Myelocytes % (Man) 0 Promyelocytes % (Man) 0 Blast Cells % (Manual) 0 Nucleated RBC % 0 Metamyelocytes 0 Hypochromia 0 Platelet Estimate Normal Polychromasia 0 Poikilocytosis 1+ Anisocytosis 1+ Microcytosis 1+ Macrocytosis 1+ Ovalocytes 1+ PT with INR 22.10 H INR 1.86 H PTT (Actin FS) Sodium 144 Potassium 3.7 Chloride 108 H Carbon Dioxide 28 Anion Gap 7 L BUN 44 H Creatinine 1.0 Creat Clearance w eGFR > 60 Random Glucose 126 H Calcium 9.2 Phosphorus 2.9 Magnesium 2.3 Total Bilirubin 0.9 Direct Bilirubin 0.4 H AST 37 ALT 55 Alkaline Phosphatase 110 Total Protein 7.3 Albumin 3.2 L Aldolase Active Medications Current Medications Acetaminophen (Ofirmev Injection -) 1,000 mg IVPB Q6H PRN PRN Reason: FEVER Albuterol/Ipratropium (Duoneb -) 1 amp NEB Q6H PRN PRN Reason: Dyspnea Last Admin: 05/29/18 17:23 Dose: 1 amp Digoxin (Lanoxin Injection -) 0.125 mg IVPUSH ONCE ONE Stop: 05/30/18 06:01 Furosemide (Lasix Injection -) 40 mg IVPB BID@0600,1400 [facility] Heparin Sodium (Porcine) (Heparin -) 1,000 unit IVPUSH PRN PRN PRN Reason: Heparin Heparin Sodium (Porcine) (Heparin -) 5,000 unit IVPUSH PRN PRN PRN Reason: Heparin Doxycycline Hyclate 100 mg/ (Dextrose) 100 mls @ 100 mls/hr IVPB BID [facility] Heparin Sodium (Porcine) 25, (000 unit/ Sodium Chloride) 500 mls @ 20 mls/hr IV TITR [facility]; Protocol Last Admin: 05/29/18 16:12 Dose: 1,450 unit/hr, 29 mls/hr Piperacillin Sod/Tazobactam (Sod 3.375 gm/ Dextrose) 50 mls @ 100 mls/hr IVPB Q8H-IV [facility]; Protocol Last Admin: 05/29/18 17:11 Dose: 100 mls/hr Lidocaine (Lidoderm Patch -) 1 patch TP DAILY [facility] Last Admin: 05/29/18 16:11 Dose: 1 patch Lorazepam (Ativan Injection -) 4 mg IVPUSH Q4H PRN PRN Reason: AGITATION Losartan Potassium (Cozaar -) 25 mg PO DAILY [facility] Methylprednisolone Sodium Succinate (Solu-Medrol -) 40 mg IVPUSH BID [facility] Metoprolol Tartrate (Lopressor -) 25 mg PO BID [facility] Metoprolol Tartrate (Lopressor Injection -) 5 mg IVPUSH Q4H PRN PRN Reason: HYPERTENSION Miscellaneous (Lidoderm Patch Removal) 1 each MC DAILY@2200 [facility] Nicotine (Nicoderm Patch -) 21 mg TD DAILY [facility] Saliva Substitute (Mouthkote Solution -) 1 applic MM DAILY [facility] Warfarin Sodium (Coumadin -) 5 mg PO 1800 [facility] Last Admin: 05/29/18 17:10 Dose: 5 mg ASSESSMENT/PLAN: A 67 y.o. M w/ PMHx. of COPD, CHF, CABG (open heart-triple bypass in 2011), Mitral valve repair(2011) A.Fib. (on Digoxin and Coumadin), CHF and chronic substance abuse, presents to the ER with AMS 2/2 Metaxalone overdose. #Pulmonology -Acute respiratory distress 2/2 Metaxalone OD and Pneumonia Tolerating Room Air Duonebs PRN received Solu-medrol 125mg Decreased Solu-medrol to 40mg Q12H CXR: shows diffuse b/l infiltrates start Zosyn and Doxycycline for broad spectrum coverage, Please avoid Quinolones and Azithromycin as Pt.s QTC is 506 and 496 on rpt. f/u Bcx. and SCx. Initial WBC:13.7, Rpt WBC: 9.5-->9.2 #Cardiology -HTN Start Losartan 25mg -A. Fib F/U Echo read D/C Diltiazem b/c of hx. of CHF Lopressor 5mg Q4H PRN Start Metoprolol 25mg BID Resume Warfarin On Heparin gtt in the AM. Cardiology consult (Dr. Hirsch) appreciated. INR: 2.16 f/u INR in AM Initial EKG: A. Fib w/ RVR, LBBB, QTc: 506, QRS: 152; Rpt. EKG is unchanged, QTc : 496 c/w Digoxin 0.125mg Daily Digoxin level: 0.61 -CAD c/w ASA 81mg Trop: 0.02-->0.05-->0.08-->0.07 #Nephrology -GISELL vs. CKD-resolving c/w 40mg IVP Lasix BID BUN: 54 Cr. :1.3 D/C IVF f/u BMP in AM Renal US: No acute Pathology, small b/l cysts, no evidence of hydronephrosis FeNa and FUrea both indicate pre-renal disease #Neurology -AMS 2/[address] Head: wnl, Rpt. CT: wnl Nicotine Patch 21 ordered #F/E/N -D/C IVF -Given 2L in ED -NPO -monitor electrolytes and correct as needed. #DVT -SCDs -INR: 2.16 -c/w heparin gtt Dispo: We will continue to follow the patient. Thank you for this consultative opportunity.
[2018-05-29] MEDS ORDERED: WARFARIN NA 5 MG TABLET (UD) PO SCH (18:00)
[2018-05-29] MEDS: METOPROLOL TARTRATE 25 MG TABLET (FP) PO SCH (21:32)
[2018-05-29] MEDS: LIDOCAINE PATCH REMOVAL MC SCH (21:33)
[2018-05-29] MEDS ORDERED: CHLORHEXIDINE GLUCONATE 4% CLEANSER FOR DECOLONIZATION TP SCH (22:00)
[2018-05-29] MEDS ORDERED: MUPIROCIN 2% TOPICAL OINTMENT FOR DECOLONIZATION NS SCH (22:00)
[2018-05-29] MEDS ORDERED: CARVEDILOL 12.5 MG TABLET (FP) PO SCH (22:00)
[2018-05-29] MEDS ORDERED: methylPREDNISolone NA SUCC 40 MG/1 ML VIAL IVPUSH SCH (22:00)
[2018-05-29] MEDS: ACETAMINOPHEN 1000 MG/100 ML VIAL (NON FORMULARY) IVPB PRN (22:14)
[2018-05-30] MEDS ORDERED: PIPERACILLIN/TAZOBACTAM 3.375 GM VIAL IVPB ONE ×2 (01:19→08:37)
[2018-05-30] MEDS ORDERED: DEXTROSE 5%-WATER - 50 ML IVPB ONE ×2 (01:20→08:37)
[2018-05-30] MEDS: PIPERACILLIN/TAZOB 3.375 GM 3.375 GM in DEXTROSE 5%-WATER - 50 ML IVPB SCH ×2 (01:21→09:30)
--- NOTE | 2018-05-30 03:03 | RAPID ---
Physical Examination Vital Signs: Vital Signs BP 150/72 HR 109 O2 100% on NC Labs: CBC, BMP 05/29/18 05:30 05/29/18 05:30 Rapid Response - Rapid Response Assessment: Rapid response called on tele unit. Pt found on floor after fall. Per pt, pt was attempting to get water, but slipped next to bed. On exam, pt AAOx3, NAD, CN II-XII intact, lungs cta b/l, irregularly irregular HR, 5/5 muscle strength u/l b/l extremities, red blood noted on L knee. B/L knee xray, EKG, Head CT ordered. EKG showed A.fib with PVCs, EKG changes consistent with LBBB , unchanged from previous. Will follow up imaging and sign out to day team for repeat head CT later.
--- NOTE | 2018-05-30 03:04 | FALL ---
Fall Exam - Event Witnessed fall: No Location of Fall: Patient Room Fall from: Bed - Pre-Fall Mental Status: Alert, Oriented, Cooperative Current Medications: Current Medications Generic Name Dose Route Start Last Admin Trade Name Freq PRN Reason Stop Dose Admin Acetaminophen 1,000 mg 05/29/18 15:54 05/29/18 22:14 Ofirmev Injection - IVPB 1,000 mg Q6H PRN Administration FEVER Albuterol/Ipratropium 1 amp 05/29/18 15:54 05/29/18 17:23 Duoneb - NEB 1 amp Q6H PRN Administration Dyspnea Digoxin 0.125 mg 05/30/18 06:00 Lanoxin Injection - IVPUSH 05/30/18 06:01 ONCE ONE Furosemide 40 mg 05/30/18 06:00 Lasix Injection - IVPB BID@0600,1400 SANDY Heparin Sodium (Porcine) 1,000 unit 05/29/18 15:54 Heparin - IVPUSH PRN PRN Heparin Heparin Sodium (Porcine) 5,000 unit 05/29/18 15:54 05/29/18 18:52 Heparin - IVPUSH 5,000 unit PRN PRN Administration Heparin Doxycycline Hyclate 100 mg/ 100 mls @ 100 mls/hr 05/29/18 22:00 05/29/18 21: 12 Dextrose IVPB 100 mls/hr BID SANDY Administration Heparin Sodium (Porcine) 25, 500 mls @ 20 mls/hr 05/29/18 15:54 05/29/18 18: 53 000 unit/ Sodium Chloride IV 1,600 unit/hr TITR SANDY 32 mls/hr Titration Protocol 1,000 UNIT/HR Piperacillin Sod/Tazobactam 50 mls @ 100 mls/hr 05/29/18 18:00 05/30/18 01:21 Sod 3.375 gm/ Dextrose IVPB 100 mls/hr Q8H-IV SANDY Administration Protocol Lidocaine 1 patch 05/29/18 13:45 05/29/18 16:11 Lidoderm Patch - TP 1 patch DAILY [facility] Administration Lorazepam 4 mg 05/29/18 15:54 05/30/18 01:44 Ativan Injection - IVPUSH 4 mg Q4H PRN Administration AGITATION Losartan Potassium 25 mg 05/30/18 10:00 Cozaar - PO DAILY S[facility]Y Methylprednisolone Sodium Succinate 40 mg 05/29/18 22:00 05/29/18 21:12 Solu-Medrol - IVPUSH 40 mg BID SANDY Administration Metoprolol Tartrate 25 mg 05/29/18 22:00 05/29/18 21:32 Lopressor - PO 25 mg BID SANDY Administration Metoprolol Tartrate 5 mg 05/29/18 15:54 Lopressor Injection - IVPUSH Q4H PRN HYPERTENSION Miscellaneous 1 each 05/29/18 22:00 05/29/18 21:33 Lidoderm Patch Removal MC Not Given DAILY@2200 [facility] Nicotine 21 mg 05/30/18 10:00 Nicoderm Patch - TD DAILY [facility] Saliva Substitute 1 applic 05/30/18 10:00 Mouthkote Solution - MM DAILY [facility] Warfarin Sodium 5 mg 05/29/18 18:00 05/29/18 17:10 Coumadin - PO 5 mg 1800 S[facility]Y Administration - Post-Fall Patient Outcome: Abrasion/Bruise Exam Findings: L knee Vital Signs: Vital Signs Temperature 97.6 F 05/30/18 01:14 Pulse Rate 5 L 05/30/18 01:14 Respiratory Rate 20 05/30/18 01:14 Blood Pressure 143/75 05/30/18 01:14 O2 Sat by Pulse Oximetry (%) 97 05/29/18 21:00 LOC Post-Fall: Unchanged Identify factors for HIGH RISK for Head Injury: Pt on anticoagulant (Pt currently on heparin drip)
--- NOTE | 2018-05-30 04:58 | HOSP ---
Subjective - Review of Symptoms Events since last encounter: Per Night Sameerk, Head CT showed no evidence of hemorrhage, mass, or infarct. Await final read of the b/l knee xray. Physical Examination Vital Signs: Vital Signs Temperature 98.3 F 05/30/18 02:50 Pulse Rate 101 H 05/30/18 02:50 Respiratory Rate 20 05/30/18 02:50 Blood Pressure 154/88 05/30/18 02:50 O2 Sat by Pulse Oximetry (%) 97 05/29/18 21:00 Labs: CBC, BMP 05/29/18 05:30 05/29/18 05:30 Visit type - Emergency Visit Emergency Visit: Yes ED Registration Date: 05/27/18 Care time: The patient presented to the Emergency Department on the above date and was hospitalized for further evaluation of their emergent condition. - New Patient This patient is new to me today: Yes Date on this admission: 05/30/18 - Critical Care Critical Care patient: No
[2018-05-30] MEDS: FUROSEMIDE 40 MG/4 ML INJECTABLE VIAL IVPB SCH ×2 (05:44→16:49)
[2018-05-30] MEDS ORDERED: DIGOXIN 0.5 MG/2 ML AMPUL IVPUSH ONE ×2 (06:00)
[2018-05-30 07:12] LABS: BASO % 0.2 % (0-2.0); HEMATOCRIT 35.1 % (35.4-49); LYMPH % 2.9 % (8-40); MCH 26.3 pg (25.7-33.7); MCHC 31.3 g/dl (32.0-35.9); MEAN CELL VOLUME 83.8 fl (80-96); MONO % 3.4 % (3.8-10.2); NEUT % 93.5 % (42.8-82.8); PLATELET COUNT 234 K/MM3 (134-434); RBC 4.19 M/mm3 (4.00-5.60); WHITE BLOOD COUNT 10.5 K/mm3 (4.0-10.0)
[2018-05-30 08:31] LABS: ALBUMIN 3.2 g/dl (3.4-5.0); ALK PHOS 102 U/L (45-117); ANION GAP 10 MMOL/L (8-16); BILIRUBIN,TOTAL 1.2 mg/dL (0.2-1); BLOOD UREA NITROGEN 41 mg/dL (7-18); CALCIUM 9.4 mg/dL (8.5-10.1); CHLORIDE 103 mmol/L (98-107); CO2 26 mmol/L (21-32); GLUCOSE,RANDOM 135 mg/dL (74-106); MAGNESIUM 2.4 mg/dL (1.8-2.4); POTASSIUM 3.5 mmol/L (3.5-5.1); SGOT/AST 42 U/L (15-37); SGPT/ALT 74 U/L (13-61); SODIUM 138 mmol/L (136-145); TOT PROT 7.1 g/dl (6.4-8.2)
[2018-05-30 08:38] LABS: INR 2.17 (0.83-1.09); PROTHROMBIN TIME (PATIENT) 25.8 SEC (9.7-13.0)
[2018-05-30 08:41] LABS: ACTIVATED PTT 53.9 SECONDS (25.2-36.5)
--- NOTE | 2018-05-30 09:16 | PN ---
Physical Exam: SUBJECTIVE: Patient seen and examined at the bedside. Rapid response this morning for s/p fall. OBJECTIVE: unwitnessed fall last night with injury to his left knee, initial head ct negative. On a heparin drip. will repeat head CT [address] Restless overnight, jenniffer vest for tonight ordered. ativan 1mg po prn for anxiety knee xrays without fracture, soft tissue swelling of left knee Vital Signs Period Temp Pulse Resp BP Sys/Liu Pulse Ox Last 24 Hr 97.6 F-98.3 F 5-109 19-21 137-161/75-88 97-98 GENERAL: The patient is awake, alert, no acute distress. AMS on admission, mental status improving. HEAD: Normal with no signs of trauma. EYES: PERRL, extraocular movements intact, sclera anicteric, conjunctiva clear. No ptosis. ENT: Ears normal, nares patent, oropharynx clear without exudates, moist mucous membranes. NECK: Trachea midline, full range of motion, supple. LUNGS: diffused wheezing bilateral lungs, tolerating room air HEART: Regular rate and rhythm, S1, S2 without murmur, rub or gallop. ABDOMEN: Soft, nontender, nondistended, normoactive bowel sounds NEUROLOGICAL:Normal speech, gait not observed. PSYCH: Normal mood, normal affect. SKIN: abrasion to left knee, site cleansed with NS, sterile dressing applied Laboratory Results - last 24 hr 05/28/18 05/29/18 05/29/18 05:30 05:30 13:45 WBC RBC Hgb Hct MCV MCH MCHC RDW Plt Count MPV Absolute Neuts (auto) Neutrophils % Neutrophils % (Manual) 95.9 H Band Neutrophils % 0.0 Lymphocytes % Lymphocytes % (Manual) 1.7 L D Monocytes % Monocytes % (Manual) 2 L Eosinophils % Eosinophils % (Manual) 0.8 D Basophils % Basophils % (Manual) 0.0 Myelocytes % (Man) 0 Promyelocytes % (Man) 0 Blast Cells % (Manual) 0 Nucleated RBC % Metamyelocytes 0 Hypochromia 0 Platelet Estimate Normal Polychromasia 0 Poikilocytosis 1+ Anisocytosis 1+ Microcytosis 1+ Macrocytosis 1+ Ovalocytes 1+ PT with INR 22.10 H INR 1.86 H PTT (Actin FS) Sodium Potassium Chloride Carbon Dioxide Anion Gap BUN Creatinine Creat Clearance w eGFR Random Glucose Calcium Magnesium Total Bilirubin AST ALT Alkaline Phosphatase Myoglobin 211 H Total Protein Albumin Aldolase 10.2 Digoxin 05/29/18 05/30/18 05/30/18 17:45 00:30 05:30 WBC RBC Hgb Hct MCV MCH MCHC RDW Plt Count MPV Absolute Neuts (auto) Neutrophils % Neutrophils % (Manual) Band Neutrophils % Lymphocytes % Lymphocytes % (Manual) Monocytes % Monocytes % (Manual) Eosinophils % Eosinophils % (Manual) Basophils % Basophils % (Manual) Myelocytes % (Man) Promyelocytes % (Man) Blast Cells % (Manual) Nucleated RBC % Metamyelocytes Hypochromia Platelet Estimate Polychromasia Poikilocytosis Anisocytosis Microcytosis Macrocytosis Ovalocytes PT with INR INR PTT (Actin FS) 37.3 H 68.9 H Cancelled Sodium Potassium Chloride Carbon Dioxide Anion Gap BUN Creatinine Creat Clearance w eGFR Random Glucose Calcium Magnesium Total Bilirubin AST ALT Alkaline Phosphatase Myoglobin Total Protein Albumin Aldolase Digoxin 05/30/18 05/30/18 05/30/18 05:30 05:30 05:30 WBC 10.5 H RBC 4.19 Hgb 11.0 L Hct 35.1 L MCV 83.8 MCH 26.3 MCHC 31.3 L RDW 20.0 H Plt Count 234 MPV 8.0 Absolute Neuts (auto) 9.8 H Neutrophils % 93.5 H Neutrophils % (Manual) Band Neutrophils % Lymphocytes % 2.9 L D Lymphocytes % (Manual) Monocytes % 3.4 L Monocytes % (Manual) Eosinophils % 0.0 D Eosinophils % (Manual) Basophils % 0.2 Basophils % (Manual) Myelocytes % (Man) Promyelocytes % (Man) Blast Cells % (Manual) Nucleated RBC % 0 Metamyelocytes Hypochromia Platelet Estimate Polychromasia Poikilocytosis Anisocytosis Microcytosis Macrocytosis Ovalocytes PT with INR 25.80 H INR 2.17 H PTT (Actin FS) 53.9 H Sodium 138 Potassium 3.5 Chloride 103 Carbon Dioxide 26 Anion Gap 10 BUN 41 H Creatinine 1.0 Creat Clearance w eGFR > 60 Random Glucose 135 H Calcium 9.4 Magnesium 2.4 Total Bilirubin 1.2 H AST 42 H ALT 74 H Alkaline Phosphatase 102 Myoglobin Total Protein 7.1 Albumin 3.2 L Aldolase Digoxin 0.57 L Active Medications Generic Name Dose Route Start Last Admin Trade Name Freq PRN Reason Stop Dose Admin Acetaminophen 1,000 mg 05/29/18 15:54 05/29/18 22:14 Ofirmev Injection - IVPB 1,000 mg Q6H PRN Administration FEVER Albuterol/Ipratropium 1 amp 05/29/18 15:54 05/29/18 17:23 Duoneb - NEB 1 amp Q6H PRN Administration Dyspnea Furosemide 40 mg 05/30/18 06:00 05/30/18 05:44 Lasix Injection - IVPB 40 mg BID@0600,1400 SANDY Administration Heparin Sodium (Porcine) 1,000 unit 05/29/18 15:54 Heparin - IVPUSH PRN PRN Heparin Heparin Sodium (Porcine) 5,000 unit 05/29/18 15:54 05/29/18 18:52 Heparin - IVPUSH 5,000 unit PRN PRN Administration Heparin Doxycycline Hyclate 100 mg/ 100 mls @ 100 mls/hr 05/29/18 22:00 05/29/18 21: 12 Dextrose IVPB 100 mls/hr BID SANDY Administration Heparin Sodium (Porcine) 25, 500 mls @ 20 mls/hr 05/29/18 15:54 05/29/18 18: 53 000 unit/ Sodium Chloride IV 1,600 unit/hr TITR SANDY 32 mls/hr Titration Protocol 1,000 UNIT/HR Piperacillin Sod/Tazobactam 50 mls @ 100 mls/hr 05/29/18 18:00 05/30/18 01:21 Sod 3.375 gm/ Dextrose IVPB 100 mls/hr Q8H-IV SANDY Administration Protocol Lidocaine 1 patch 05/29/18 13:45 05/29/18 16:11 Lidoderm Patch - TP 1 patch DAILY [facility]Y Administration Lorazepam 4 mg 05/29/18 15:54 05/30/18 01:44 Ativan Injection - IVPUSH 4 mg Q4H PRN Administration AGITATION Losartan Potassium 25 mg 05/30/18 10:00 Cozaar - PO DAILY S[facility]Y Methylprednisolone Sodium Succinate 40 mg 05/29/18 22:00 05/29/18 21:12 Solu-Medrol - IVPUSH 40 mg BID SANDY Administration Metoprolol Tartrate 25 mg 05/29/18 22:00 05/29/18 21:32 Lopressor - PO 25 mg BID [facility] Administration Metoprolol Tartrate 5 mg 05/29/18 15:54 Lopressor Injection - IVPUSH Q4H PRN HYPERTENSION Miscellaneous 1 each 05/29/18 22:00 05/29/18 21:33 Lidoderm Patch Removal MC Not Given DAILY@2200 [facility] Nicotine 21 mg 05/30/18 10:00 Nicoderm Patch - TD DAILY [facility] Saliva Substitute 1 applic 05/30/18 10:00 Mouthkote Solution - MM DAILY [facility] Warfarin Sodium 5 mg 05/29/18 18:00 05/29/18 17:10 Coumadin - PO 5 mg 1800 [facility] Administration ASSESSMENT/PLAN: Patient is a 67 year old male with a significant past medical history of atrial fibrillation (on coumadin), hypertension, COPD, depression, former ETOH abuse with current prescription opiod abuse. He presents to the ED after he was found by his family with altered mental status and unsteady gait. Patient was believed to have taken approximately ten Metaxalone 800mg tablets. Patient was reported to abuse opiod pain medications after having various knee surgeries. Family is hoping patient enters a rehab program for opioid detox after hospitalization. ------ Flexeril Overdose/Rigidity Possible Sepsis Atrial fibrillation Hypertension Systolic CHF COPD Acute Respiratory Distress in the setting of Opioid overdose Pneumonia Depression ETOH abuse, history Opioid abuse Toxic metabolic encepholopathy GISELL on CKD ------ Card: Atrial fibrillation. Discontinue heparin drip, continue coumadin 5mg. INR 2.17 Hypertension. BP controlled on losartan and metoprolol bid. Elevated troponins: 0.02, 0.05, 0.08. cardiology following. flat trending, ruled out for ACS. Systolic CHF. Converted to Lasix 40mg PO. Pulm: Acute Respiratory Distress in the setting of opioid overdose, resolved. Respiratory status improving. Will continue to monitor oxygen saturations on room air and on ambulation. Pre and post prior to discharge. Pulmonary following. chest xray shows improvement of lung castillo. PNA/possible aspiration. Chest xray with improvement from previous, resolution of infiltrates. IV antibiotics discontinued by ID. Psyche/Neuro:: Toxic metabolic encepholopathy in the setting of metaxalone overdose. Family interested in inpatient detox at rehab facility. Monitor mental status. Depression, history ETOH abuse, history Anxiety, ativan 1mg TID prn ordered. Fall s/p fall overnight, jenniffer vest ordered for safety. knee xray and head ct negative. Renal: GISELL on CKD: Creat 1.0. Monitor renal function daily. Renal US w/o evidence of hydronephrosis. fen tolerating PO monitor electrolytes low sat diet prophylaxis: continue coumadin, stop heparin gtt. full code Visit type - Emergency Visit Emergency Visit: Yes ED Registration Date: 05/27/18 Care time: The patient presented to the Emergency Department on the above date and was hospitalized for further evaluation of their emergent condition. - New Patient This patient is new to me today: No - Critical Care Critical Care patient: No - Discharge Referral Referred to [facility] Med [facility] No
[2018-05-30] MEDS: LOSARTAN POTASSIUM 25 MG TABLET PO SCH (09:29)
[2018-05-30] MEDS: METOPROLOL TARTRATE 25 MG TABLET (FP) PO SCH ×2 (09:29→21:05)
[2018-05-30] MEDS: LIDOCAINE 5% TOPICAL PATCH TP SCH (09:30)
[2018-05-30] MEDS: NICOTINE 21 MG/24 HOURS TOPICAL PATCH TD SCH (09:30)
[2018-05-30] MEDS: ACETAMINOPHEN 1000 MG/100 ML VIAL (NON FORMULARY) IVPB PRN (09:55)
--- NOTE | 2018-05-30 10:25 | EKG ---
Test Reason : Blood Pressure : / mmHG Vent. Rate : 097 BPM Atrial Rate : 144 BPM P-R Int : 000 ms QRS Dur : 172 ms QT Int : 416 ms P-R-T Axes : 000 -27 133 degrees QTc Int : 528 ms ATRIAL FIBRILLATION WITH PREMATURE VENTRICULAR OR ABERRANTLY CONDUCTED COMPLEXES LEFT BUNDLE BRANCH BLOCK ABNORMAL ECG WHEN COMPARED WITH ECG OF 28-MAY-2018 14:16, NO SIGNIFICANT CHANGE WAS FOUND Confirmed by DESTINEY BLAKE, GUERO ([id number]) on 05/30/2018 10:25:26 AM Referred By: MIGUELANGEL Confirmed By:GUERO CABELLO MD
[2018-05-30] MEDS: DOXYCYCLINE INJECTION 100 MG in DEXTROSE 5%-WATER - 100 ML IVPB SCH ×2 (10:40→21:06)
--- NOTE | 2018-05-30 11:06 | PN ---
Progress Note, Physician History of Present Illness: PULMONARY ALERT,COMFORTABLE,-RESP DISTRESS - Current Medication List Current Medications: Active Medications Acetaminophen (Ofirmev Injection -) 1,000 mg IVPB Q6H PRN PRN Reason: FEVER Last Admin: 05/30/18 09:55 Dose: 1,000 mg Albuterol/Ipratropium (Duoneb -) 1 amp NEB Q6H PRN PRN Reason: Dyspnea Last Admin: 05/29/18 17:23 Dose: 1 amp Furosemide (Lasix Injection -) 40 mg IVPB BID@0600,1400 SANDY Last Admin: 05/30/18 05:44 Dose: 40 mg Heparin Sodium (Porcine) (Heparin -) 1,000 unit IVPUSH PRN PRN PRN Reason: Heparin Heparin Sodium (Porcine) (Heparin -) 5,000 unit IVPUSH PRN PRN PRN Reason: Heparin Last Admin: 05/29/18 18:52 Dose: 5,000 unit Doxycycline Hyclate 100 mg/ (Dextrose) 100 mls @ 100 mls/hr IVPB BID SANDY Last Admin: 05/30/18 10:40 Dose: 100 mls/hr Heparin Sodium (Porcine) 25, (000 unit/ Sodium Chloride) 500 mls @ 20 mls/hr IV TITR SANDY; Protocol Last Titration: 05/29/18 18:53 Dose: 1,600 unit/hr, 32 mls/hr Piperacillin Sod/Tazobactam (Sod 3.375 gm/ Dextrose) 50 mls @ 100 mls/hr IVPB Q8H-IV SANDY; Protocol Last Admin: 05/30/18 09:30 Dose: 100 mls/hr Lidocaine (Lidoderm Patch -) 1 patch TP DAILY [facility] Last Admin: 05/30/18 09:30 Dose: 1 patch Lorazepam (Ativan Injection -) 4 mg IVPUSH Q4H PRN PRN Reason: AGITATION Last Admin: 05/30/18 01:44 Dose: 4 mg Losartan Potassium (Cozaar -) 25 mg PO DAILY [facility] Last Admin: 05/30/18 09:29 Dose: 25 mg Methylprednisolone Sodium Succinate (Solu-Medrol -) 40 mg IVPUSH BID [facility] Last Admin: 05/29/18 21:12 Dose: 40 mg Metoprolol Tartrate (Lopressor -) 25 mg PO BID [facility] Last Admin: 05/30/18 09:29 Dose: 25 mg Metoprolol Tartrate (Lopressor Injection -) 5 mg IVPUSH Q4H PRN PRN Reason: HYPERTENSION Miscellaneous (Lidoderm Patch Removal) 1 each MC DAILY@2200 [facility] Last Admin: 05/29/18 21:33 Dose: Not Given Nicotine (Nicoderm Patch -) 21 mg TD DAILY [facility] Last Admin: 05/30/18 09:30 Dose: 21 mg Saliva Substitute (Mouthkote Solution -) 1 applic MM DAILY [facility] Warfarin Sodium (Coumadin -) 5 mg PO 1800 [facility] Last Admin: 05/29/18 17:10 Dose: 5 mg - Objective Vital Signs: Vital Signs Temperature 98.1 F 05/30/18 09:00 Pulse Rate 106 H 05/30/18 10:12 Respiratory Rate 21 H 05/30/18 10:12 Blood Pressure 122/78 05/30/18 10:12 O2 Sat by Pulse Oximetry (%) 98 05/30/18 09:00 Constitutional: Yes: Well Nourished, Calm Eyes: Yes: WNL HENT: Yes: WNL Neck: Yes: WNL Cardiovascular: Yes: Pulse Irregular, S1, S2 Respiratory: Yes: Wheezes (FEW SCATTERED BILATERAL RHONCHI AND WHEEZES) Gastrointestinal: Yes: Normal Bowel Sounds, Soft Extremities: Yes: WNL Edema: No Labs: CBC, BMP 05/30/18 05:30 05/30/18 05:30 INR, PTT INR 2.17 (0.83-1.09) H 05/30/18 05:30 Problem List - Problems (1) Afib Code(s): I48.91 - UNSPECIFIED ATRIAL FIBRILLATION (2) Altered mental status Code(s): R41.82 - ALTERED MENTAL STATUS, UNSPECIFIED Qualifiers: Altered mental status type: unspecified Qualified Code(s): R41.82 - Altered mental status, unspecified (3) History of substance use Code(s): Z87.898 - PERSONAL HISTORY OF OTHER SPECIFIED CONDITIONS (4) ASHD (arteriosclerotic heart disease) Code(s): I25.10 - ATHSCL HEART DISEASE OF [place] CORONARY ARTERY W/O ANG PCTRS (5) S/P CABG (coronary artery bypass graft) Code(s): Z95.1 - PRESENCE OF AORTOCORONARY BYPASS GRAFT (6) S/P mitral valve replacement Code(s): Z95.2 - PRESENCE OF PROSTHETIC HEART VALVE Assessment/Plan ASSESSMENT AND PLAN: Drug Overdose r/o Aspiration Pneumonia CAD s/p CABG Acute on Chronic Systolic Heart Failure Pulmonary HTN Acute COPD Exacerbation h/o MVR Atrial Fibrillation with RVR Polysubstance Abuse - lasix - antibiotics - can decrease medrol - inhaled bronchodilators - rate control - continue anticoagulation - aspiration precautions - PO as tolerated - DVT prophylaxis - Chest x-ray DR HALE
[2018-05-30] MEDS: methylPREDNISolone NA SUCC 40 MG/1 ML VIAL IVPUSH SCH ×2 (11:30→21:06)
[2018-05-30] MEDS ORDERED: PT OWN MED DRAWER 7, Y5N ONE ×2 (12:21→20:57)
--- NOTE | 2018-05-30 14:13 | PN ---
Progress Note, Physician History of Present Illness: stable breathing better still with nasal canula no new issues - Current Medication List Current Medications: Active Medications Acetaminophen (Ofirmev Injection -) 1,000 mg IVPB Q6H PRN PRN Reason: FEVER Last Admin: 05/30/18 09:55 Dose: 1,000 mg Albuterol/Ipratropium (Duoneb -) 1 amp NEB Q6H PRN PRN Reason: Dyspnea Last Admin: 05/29/18 17:23 Dose: 1 amp Furosemide (Lasix Injection -) 40 mg IVPB BID@0600,1400 [facility] Last Admin: 05/30/18 05:44 Dose: 40 mg Heparin Sodium (Porcine) (Heparin -) 1,000 unit IVPUSH PRN PRN PRN Reason: Heparin Heparin Sodium (Porcine) (Heparin -) 5,000 unit IVPUSH PRN PRN PRN Reason: Heparin Last Admin: 05/29/18 18:52 Dose: 5,000 unit Doxycycline Hyclate 100 mg/ (Dextrose) 100 mls @ 100 mls/hr IVPB BID [facility] Last Admin: 05/30/18 10:40 Dose: 100 mls/hr Heparin Sodium (Porcine) 25, (000 unit/ Sodium Chloride) 500 mls @ 20 mls/hr IV TITR SANDY; Protocol Last Titration: 05/29/18 18:53 Dose: 1,600 unit/hr, 32 mls/hr Lidocaine (Lidoderm Patch -) 1 patch TP DAILY [facility] Last Admin: 05/30/18 09:30 Dose: 1 patch Lorazepam (Ativan Injection -) 4 mg IVPUSH Q4H PRN PRN Reason: AGITATION Last Admin: 05/30/18 01:44 Dose: 4 mg Losartan Potassium (Cozaar -) 25 mg PO DAILY [facility] Last Admin: 05/30/18 09:29 Dose: 25 mg Methylprednisolone Sodium Succinate (Solu-Medrol -) 40 mg IVPUSH BID [facility] Last Admin: 05/30/18 11:30 Dose: 40 mg Metoprolol Tartrate (Lopressor -) 25 mg PO BID [facility] Last Admin: 05/30/18 09:29 Dose: 25 mg Metoprolol Tartrate (Lopressor Injection -) 5 mg IVPUSH Q4H PRN PRN Reason: HYPERTENSION Miscellaneous (Lidoderm Patch Removal) 1 each MC DAILY@2200 [facility] Last Admin: 05/29/18 21:33 Dose: Not Given Nicotine (Nicoderm Patch -) 21 mg TD DAILY [facility] Last Admin: 05/30/18 09:30 Dose: 21 mg Saliva Substitute (Mouthkote Solution -) 1 applic MM DAILY [facility] Warfarin Sodium (Coumadin -) 5 mg PO 1800 [facility] Last Admin: 05/29/18 17:10 Dose: 5 mg - Objective Vital Signs: Vital Signs Temperature 98.3 F 05/30/18 14:00 Pulse Rate 96 H 05/30/18 14:00 Respiratory Rate 20 05/30/18 14:00 Blood Pressure 136/91 05/30/18 14:00 O2 Sat by Pulse Oximetry (%) 98 05/30/18 09:00 Constitutional: Yes: No Distress, Calm Cardiovascular: Yes: Regular Rate and Rhythm Respiratory: Yes: Regular, CTA Bilaterally Gastrointestinal: Yes: Normal Bowel Sounds, Soft Musculoskeletal: Yes: WNL Extremities: Yes: WNL Neurological: Yes: Alert, Oriented Psychiatric: Yes: Alert, Oriented Labs: CBC, BMP 05/30/18 05:30 05/30/18 05:30 INR, PTT INR 2.17 (0.83-1.09) H 05/30/18 05:30 Assessment/Plan 67 y.o. with PMH of COPD, CABG, AFIB, CHF, and prescription drug abuse presented to ER with AMS, less responsive with possible ingestion of multiple Flexeril pills Flexeril Overdose/Rigidity R/O malignant hyperthermia Possible Sepsis PNA / possible aspiration Acute Resp Distress Fever/Leukocytosis/elevated lactic acid level COPD CAD s/p CABG Atrial Fibrillation CHF plan continue current mgmt will stop iv abx will switch to oral abx incentive nevaeh resp support rest as per the team
--- NOTE | 2018-05-30 14:59 | PN ---
Progress Note, Physician History of Present Illness: seen and examined today in nad. awake and alert and oriented. requesting to go home. states he feels well. states he has an appointment with his transportation coordinator this monday. - Current Medication List Current Medications: Active Medications Acetaminophen (Ofirmev Injection -) 1,000 mg IVPB Q6H PRN PRN Reason: FEVER Last Admin: 05/30/18 09:55 Dose: 1,000 mg Albuterol/Ipratropium (Duoneb -) 1 amp NEB Q6H PRN PRN Reason: Dyspnea Last Admin: 05/29/18 17:23 Dose: 1 amp Furosemide (Lasix Injection -) 40 mg IVPB BID@0600,1400 SANDY Last Admin: 05/30/18 05:44 Dose: 40 mg Heparin Sodium (Porcine) (Heparin -) 1,000 unit IVPUSH PRN PRN PRN Reason: Heparin Heparin Sodium (Porcine) (Heparin -) 5,000 unit IVPUSH PRN PRN PRN Reason: Heparin Last Admin: 05/29/18 18:52 Dose: 5,000 unit Doxycycline Hyclate 100 mg/ (Dextrose) 100 mls @ 100 mls/hr IVPB BID SANDY Last Admin: 05/30/18 10:40 Dose: 100 mls/hr Heparin Sodium (Porcine) 25, (000 unit/ Sodium Chloride) 500 mls @ 20 mls/hr IV TITR SANDY; Protocol Last Titration: 05/29/18 18:53 Dose: 1,600 unit/hr, 32 mls/hr Lidocaine (Lidoderm Patch -) 1 patch TP DAILY [facility] Last Admin: 05/30/18 09:30 Dose: 1 patch Lorazepam (Ativan Injection -) 4 mg IVPUSH Q4H PRN PRN Reason: AGITATION Last Admin: 05/30/18 01:44 Dose: 4 mg Losartan Potassium (Cozaar -) 25 mg PO DAILY [facility] Last Admin: 05/30/18 09:29 Dose: 25 mg Methylprednisolone Sodium Succinate (Solu-Medrol -) 40 mg IVPUSH BID [facility]Y Last Admin: 05/30/18 11:30 Dose: 40 mg Metoprolol Tartrate (Lopressor -) 25 mg PO BID [facility] Last Admin: 05/30/18 09:29 Dose: 25 mg Metoprolol Tartrate (Lopressor Injection -) 5 mg IVPUSH Q4H PRN PRN Reason: HYPERTENSION Miscellaneous (Lidoderm Patch Removal) 1 each MC DAILY@2200 [facility] Last Admin: 05/29/18 21:33 Dose: Not Given Nicotine (Nicoderm Patch -) 21 mg TD DAILY [facility] Last Admin: 05/30/18 09:30 Dose: 21 mg Saliva Substitute (Mouthkote Solution -) 1 applic MM DAILY [facility] Warfarin Sodium (Coumadin -) 5 mg PO 1800 [facility] Last Admin: 05/29/18 17:10 Dose: 5 mg - Objective Vital Signs: Vital Signs Temperature 98.3 F 05/30/18 14:00 Pulse Rate 92 H 05/30/18 14:12 Respiratory Rate 20 05/30/18 14:12 Blood Pressure 125/78 05/30/18 14:12 O2 Sat by Pulse Oximetry (%) 98 05/30/18 11:17 Constitutional: Yes: No Distress, Calm Eyes: Yes: Conjunctiva Clear, EOM Intact, PERRL HENT: Yes: Atraumatic, Normocephalic Neck: Yes: Supple, Trachea Midline Cardiovascular: Yes: Regular Rate and Rhythm, S1, S2. No: Bradycardia, Tachycardia, Pulse Irregular, Bruit, JVD, Gallop, Murmur, Rub, S3, S4, Varicosities Respiratory: Yes: Regular, CTA Bilaterally. No: Rales, Rhonchi, Wheezes Gastrointestinal: Yes: Normal Bowel Sounds, Soft. No: Distention, Tenderness Edema: No Peripheral Pulses WNL: Yes Neurological: Yes: Alert, Oriented Psychiatric: Yes: Alert, Oriented Labs: CBC, BMP 05/30/18 05:30 05/30/18 05:30 INR, PTT INR 2.17 (0.83-1.09) H 05/30/18 05:30 - ....Imaging Chest X-ray: Report Reviewed, Image Reviewed EKG: Report Reviewed, Image Reviewed Other: Report Reviewed, Image Reviewed (tele-af, hr adequate, pvcs) Assessment/Plan 67 year-old man with a PMHx of HTN, DM, HLD, CAD, s/p CABG x3 and MV repair 10/23, chronic atrial fibrillation on warfarin, chronic systolic CHF, LBBB, CKD , COPD, restless leg syndrome admitted on 05/27/2018 after took 10 pills of flexeril (cyclobenzaprine or Metaxalone 800 mg with Tramadol 100mg pills) with altered MS, possible serotonin syndrome. He was found to have temp of 100.1 F, afib with mild VR at 110 bpm, leukocytosis of 13, hyperkalemia 5.7, lactic acid 3.8, creatinine of 2. Admitted in ICU for further evaluation and treatment. Cardiac tests: Echocardiogram 05/23/2017: TDS. Normal LV size. 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 Regadenoson stress test 05/05/17: There is non-transmural inferior wall myocardial infarction with LVEF= 38%. Assessment: 1) Acute on chronic systolic CHF with dyspnea and fluid overload. 2) Chronic atrial fibrillation with mild VR. 3) CAD, s/p CABG. 4) Severe MR, s/p MV repair with residual moderate MR. Recommendations: 1) Systolic CHF -euvolemic -transition to po Lasix, homed dose 40mg po daily -cont Losartan. -pt is acceptable to fup as outpatient with his transportation coordinator 2)AF with mild RVR-HR adequately controlled for now -cont metoprolol tartrate 25 mg BID -Continue Warfarin to keep INR 2-3. 3) CAD s/p CABG 2011 -Stable, No reported recurrent angina. -Troponin is borderline and non-dynamic (0.08--> 0.07) demand ischemia, not ACS. -Metoprolol as above. -Resume statin when possible -start ASA 81mg daily if no contraindication 4) Severe MR, s/p MV repair with residual moderate MR. -stable -outpatient fup with his transportation coordinator No additional inpatient cardiac work up needed at this time. Please call with any additional questions.
[2018-05-30] MEDS: LYTES/YERBA SANTA 240 ML BOTTLE MM SCH (16:22)
[2018-05-30] MEDS: HEPARIN - 25,000 UNIT in SODIUM CHLORIDE 495 ML IV SCH (16:49)
[2018-05-30] MEDS: LORazepam 1 MG TABLET PO PRN ×2 (17:03→23:25)
[2018-05-30] MEDS: WARFARIN NA 5 MG TABLET (UD) PO SCH (17:07)
[2018-05-30] MEDS: LIDOCAINE PATCH REMOVAL MC SCH (21:07)
[2018-05-30] MEDS ORDERED: ROSUVASTATIN CA 20 MG TABLET (FP) PO SCH (22:00)
[2018-05-31] MEDS: LORazepam 1 MG TABLET PO PRN ×2 (05:50→13:47)
[2018-05-31 07:25] LABS: HEMATOCRIT 38.8 % (35.4-49); HEMOGLOBIN 12.1 GM/dL (11.7-16.9); MCH 26.2 pg (25.7-33.7); MCHC 31.2 g/dl (32.0-35.9); MEAN CELL VOLUME 83.9 fl (80-96); MEAN PLT VOLUME 8.1 fl (7.5-11.1); PLATELET COUNT 265 K/MM3 (134-434); RBC 4.62 M/mm3 (4.00-5.60); RDW 20.3 % (11.9-15.9); WHITE BLOOD COUNT 8.4 K/mm3 (4.0-10.0)
[2018-05-31 07:28] LABS: INR 3.17 (0.83-1.09); PROTHROMBIN TIME (PATIENT) 37.8 SEC (9.7-13.0)
[2018-05-31 07:31] LABS: ACTIVATED PTT 56.7 SECONDS (25.2-36.5)
[2018-05-31] MEDS: NICOTINE 21 MG/24 HOURS TOPICAL PATCH TD SCH (08:59)
[2018-05-31] MEDS: LOSARTAN POTASSIUM 25 MG TABLET PO SCH (08:59)
[2018-05-31] MEDS: METOPROLOL TARTRATE 25 MG TABLET (FP) PO SCH (08:59)
[2018-05-31] MEDS: DOXYCYCLINE INJECTION 100 MG in DEXTROSE 5%-WATER - 100 ML IVPB SCH (08:59)
[2018-05-31] MEDS: methylPREDNISolone NA SUCC 40 MG/1 ML VIAL IVPUSH SCH (08:59)
[2018-05-31] MEDS: LIDOCAINE 5% TOPICAL PATCH TP SCH (08:59)
[2018-05-31] MEDS: LYTES/YERBA SANTA 240 ML BOTTLE MM SCH (09:00)
[2018-05-31] MEDS ORDERED: FUROSEMIDE 40 MG TABLET (FP) PO SCH (10:00)
--- NOTE | 2018-05-31 11:12 | DS ---
Physical Exam: SUBJECTIVE: Patient seen and examined OBJECTIVE: Vital Signs Period Temp Pulse Resp BP Sys/Liu Pulse Ox Last 24 Hr 97.6 F-98.3 F 91-119 18-20 122-157/75-91 95-98 PHYSICAL EXAM GENERAL: The patient is awake, alert, and fully oriented, in no acute distress. HEAD: Normal with no signs of trauma. EYES: PERRL, extraocular movements intact, sclera anicteric, conjunctiva clear. ENT: Ears normal, nares patent, oropharynx clear without exudates, moist mucous membranes. NECK: Trachea midline, full range of motion, supple. LUNGS: Breath sounds equal, clear to auscultation bilaterally, no wheezes, no crackles, no accessory muscle use. HEART: Regular rate and rhythm, S1, S2 without murmur, rub or gallop. ABDOMEN: Soft, nontender, nondistended, normoactive bowel sounds, no guarding, no rebound, no hepatosplenomegaly, no masses. EXTREMITIES: 2+ pulses, warm, well-perfused, no edema. NEUROLOGICAL: Cranial nerves II through XII grossly intact. Normal speech, gait not observed. PSYCH: Normal mood, normal affect. SKIN: Warm, dry, normal turgor, no rashes or lesions noted. LABS Laboratory Results - last 24 hr 05/30/18 05/31/18 05/31/18 05:30 05:30 05:30 WBC 8.4 RBC 4.62 Hgb 12.1 Hct 38.8 MCV 83.9 MCH 26.2 MCHC 31.2 L RDW 20.3 H Plt Count 265 MPV 8.1 Total Counted 100 Neutrophils % (Manual) 97.0 H* Band Neutrophils % 0.0 Lymphocytes % (Manual) 3.0 L Monocytes % (Manual) 0 L PT with INR 37.80 H INR 3.17 H PTT (Actin FS) 56.7 H HOSPITAL COURSE: Date of Admission:05/27/18 Date of Discharge: 05/31/18 Discharge Summary Reason For Visit: OVERDOSE Current Active Problems ASHD (arteriosclerotic heart disease) (Acute) Afib (Acute) Altered mental status (Acute) History of substance use (Acute) S/P CABG (coronary artery bypass graft) (Acute) S/P mitral valve replacement (Acute) Condition: Stable - Instructions Referrals: Ben Dias MD [Primary Care Provider] - - Home Medications Comprehensive Discharge Medication List: Ambulatory Orders Aspirin [Ecotrin] 81 mg PO DAILY 05/27/18 Carvedilol [Coreg -] 12.5 mg PO BID 05/27/18 Digoxin [Lanoxin -] 0.125 mg PO DAILY 05/27/18 Duloxetine HCl [Cymbalta] 20 mg PO DAILY 05/27/18 Fenofibrate Nanocrystallized [Tricor] 48 mg PO HS 05/27/18 Finasteride 5 mg PO HS 05/27/18 Furosemide [Lasix] 40 mg PO DAILY 05/27/18 Icosapent Ethyl [Vascepa] 2 gm PO BID 05/27/18 Metaxalone [Metaxall] 800 mg PO TID 05/27/18 Potassium Chloride [Klor-Con M20] 20 meq PO HS 05/27/18 Rosuvastatin Calcium [Crestor] 20 mg PO HS 05/27/18 Tamsulosin HCl [Flomax] 0.4 mg PO BID 05/27/18 Warfarin Sodium [Coumadin] 5 mg PO HS 05/27/18 - Discharge Referral Referred to [facility] No
--- NOTE | 2018-05-31 12:20 | PN ---
Progress Note, Physician History of Present Illness: stable breathing better no new issues - Current Medication List Current Medications: Active Medications Acetaminophen (Ofirmev Injection -) 1,000 mg IVPB Q6H PRN PRN Reason: FEVER Last Admin: 05/30/18 09:55 Dose: 1,000 mg Albuterol/Ipratropium (Duoneb -) 1 amp NEB Q6H PRN PRN Reason: Dyspnea Last Admin: 05/29/18 17:23 Dose: 1 amp Furosemide (Lasix -) 40 mg PO DAILY [facility] Last Admin: 05/31/18 08:59 Dose: 40 mg Doxycycline Hyclate 100 mg/ (Dextrose) 100 mls @ 100 mls/hr IVPB BID [facility] Last Admin: 05/31/18 08:59 Dose: 100 mls/hr Lidocaine (Lidoderm Patch -) 1 patch TP DAILY [facility] Last Admin: 05/31/18 08:59 Dose: 1 patch Lorazepam (Ativan -) 1 mg PO Q8H PRN PRN Reason: ANXIETY Last Admin: 05/31/18 05:50 Dose: 1 mg Losartan Potassium (Cozaar -) 25 mg PO DAILY [facility] Last Admin: 05/31/18 08:59 Dose: 25 mg Methylprednisolone Sodium Succinate (Solu-Medrol -) 40 mg IVPUSH BID [facility] Last Admin: 05/31/18 08:59 Dose: 40 mg Metoprolol Tartrate (Lopressor -) 25 mg PO BID [facility] Last Admin: 05/31/18 08:59 Dose: 25 mg Metoprolol Tartrate (Lopressor Injection -) 5 mg IVPUSH Q4H PRN PRN Reason: HYPERTENSION Miscellaneous (Lidoderm Patch Removal) 1 each MC DAILY@2200 [facility] Last Admin: 05/30/18 21:07 Dose: 1 each Nicotine (Nicoderm Patch -) 21 mg TD DAILY [facility] Last Admin: 05/31/18 08:59 Dose: 21 mg Rosuvastatin Calcium (Crestor -) 20 mg PO HS [facility] Last Admin: 05/30/18 21:06 Dose: 20 mg Saliva Substitute (Mouthkote Solution -) 1 applic MM DAILY [facility] Last Admin: 05/31/18 09:00 Dose: 1 applic Warfarin Sodium (Coumadin -) 5 mg PO 1800 [facility] Last Admin: 05/30/18 17:07 Dose: 5 mg - Objective Vital Signs: Vital Signs Temperature 98 F 1018/18 02:12 Pulse Rate 119 H 05/31/18 11:04 Respiratory Rate 20 05/31/18 05:00 Blood Pressure 128/76 05/31/18 05:00 O2 Sat by Pulse Oximetry (%) 95 05/31/18 11:04 Constitutional: Yes: No Distress, Calm Cardiovascular: Yes: S1, S2 Respiratory: Yes: Regular, Poor Air Entry (bases) Gastrointestinal: Yes: Normal Bowel Sounds, Soft Musculoskeletal: Yes: WNL Extremities: Yes: Other Neurological: Yes: Alert Psychiatric: Yes: Alert Labs: CBC, BMP 05/31/18 05:30 05/30/18 05:30 INR, PTT INR 3.17 (0.83-1.09) H 05/31/18 05:30 Assessment/Plan 67 y.o. with PMH of COPD, CABG, AFIB, CHF, and prescription drug abuse presented to ER with AMS, less responsive with possible ingestion of multiple Flexeril pills Flexeril Overdose/Rigidity R/O malignant hyperthermia Possible Sepsis PNA / possible aspiration Acute Resp Distress Fever/Leukocytosis/elevated lactic acid level COPD CAD s/p CABG Atrial Fibrillation CHF plan continue current mgmt oral abx as planned incentive nevaeh resp support rest as per the team
[2018-05-31] MEDS ORDERED: AMOX TR/POT CLAV 875MG/125MG TABLETS (FP) PO SCH (12:47)
[2018-05-31 14:53] VITALS: BP 122/66; PULSE 102; TEMP 98.1
== END 2018-05-31 16:44 | disposition home or self-care (01) | DRG 917 ==
LOC: JER 09:08 → JERBED 12:31 → JICU 16:44 → J4W 05-29 15:38
PROVIDERS: ADMIT Internal Medicine; ATTEND Nurse Practitioner Family
DX: T48.1X1A Poisoning by skeletal muscle relaxants [neuromuscular blocking agents], accidental (unintentional), initial encounter (principal); G92 Toxic encephalopathy; I50.23 Acute on chronic systolic (congestive) heart failure; J69.0 Pneumonitis due to inhalation of food and vomit; N17.9 Acute kidney failure, unspecified; I24.8 Other forms of acute ischemic heart disease; I13.0 Hypertensive heart and chronic kidney disease with heart failure and stage 1 through stage 4 chronic kidney disease, or unspecified chronic kidney disease; T42.8X5A Adverse effect of antiparkinsonism drugs and other central muscle-tone depressants, initial encounter; R41.82 Altered mental status, unspecified; Y92.098 Other place in other non-institutional residence as the place of occurrence of the external cause; F11.10 Opioid abuse, uncomplicated; R06.03 Acute respiratory distress; I48.2 Chronic atrial fibrillation; E78.5 Hyperlipidemia, unspecified; J44.9 Chronic obstructive pulmonary disease, unspecified; F17.210 Nicotine dependence, cigarettes, uncomplicated; I44.7 Left bundle-branch block, unspecified; I25.10 Atherosclerotic heart disease of native coronary artery without angina pectoris; R50.9 Fever, unspecified; D72.829 Elevated white blood cell count, unspecified; R09.02 Hypoxemia; I34.0 Nonrheumatic mitral (valve) insufficiency; N18.9 Chronic kidney disease, unspecified; I27.20 Pulmonary hypertension, unspecified; W18.31XA Fall on same level due to stepping on an object, initial encounter; Y92.230 Patient room in hospital as the place of occurrence of the external cause; E87.5 Hyperkalemia; N28.1 Cyst of kidney, acquired; F19.10 Other psychoactive substance abuse, uncomplicated; F10.10 Alcohol abuse, uncomplicated; G89.4 Chronic pain syndrome; R74.0 Nonspecific elevation of levels of transaminase and lactic acid dehydrogenase [LDH]; F32.9 Major depressive disorder, single episode, unspecified; Z95.2 Presence of prosthetic heart valve; Z95.1 Presence of aortocoronary bypass graft; Z79.01 Long term (current) use of anticoagulants
CPT/HCPCS: 36415; 36600; 70450-TC; 71045-TC-FY; 73562-TC-LT-FY; 73562-TC-RT-FY; 74018-TC-FY; 76775-TC; 80048; 80053; 80076; 80162; 80307; 81003; 82085; 82140; 82248; 82550; 82570; 82803; 82962; 82977; 83605; 83735; 83874; 84100; 84300; 84484; 84540; 85025; 85027; 85610; 85651; 85730; 87040; 87086; 87899; 93005; 93010; 93306-TC; 94640; 94660; 94761; 95816; 97116-GP; 97162-GP; 99285-25; J0131; J1644; J7030

== ENCOUNTER 2023-02-10 05:20 | Day surgery (SDC) | payer BC ==
[2023-02-09 10:46] VITALS: BMI 28.0
[2023-02-10] MEDS ORDERED: LIDOCAINE HCL/PF 1% SDV 5ML VIAL ONE (07:10)
[2023-02-10] MEDS ORDERED: LIDOCAINE HCL/PF 2% SDV 5ML VIAL ONE (07:10)
[2023-02-10] MEDS ORDERED: LIDOCAINE HCL 1% PRESERVATIVE FREE - 30ML VIAL IJ ONE ×2 (07:34→08:15)
[2023-02-10 08:48] VITALS: RESP 18
[2023-02-10 09:19] VITALS: BP 107/52; PULSE 68; TEMP 97.7
[2023-02-10] MEDS ORDERED: ACETAMINOPHEN 500 MG TABLET (FP) PO PRN (16:32)
== END 2023-02-10 09:48 | disposition home or self-care (01) ==
LOC: JASU-SURG 05:20
PROVIDERS: ATTEND Pain Medicine Pain Medicine
PROC: 01HY3MZ Insertion of Neurostimulator Lead into Peripheral Nerve, Percutaneous Approach (ICD-10-PCS; principal; 2023-02-10 08:00)
DX: G89.4 Chronic pain syndrome (principal); M25.512 Pain in left shoulder
CPT/HCPCS: 64555; C1778